=== PATIENT | female | born 1955 | race Caucasian/White ===

== ENCOUNTER 2023-06-22 20:50 | Outpatient (CLI) | payer MEDICARE, SELFPAY | END 2023-06-22 20:51 | disposition home or self-care (01) | LOC: AMB 06-24 15:32 | PROVIDERS: PCP Family Medicine; Visit Provider Internal Medicine | DX: R10.9 Unspecified abdominal pain (principal) | CPT/HCPCS: A0425; A0427 ==

== ENCOUNTER 2023-06-22 21:05 | Inpatient (IN) | payer MEDICARE, SELFPAY ==
--- NOTE | 2023-06-22 21:12 | ED.ABDPAIN ---
HPI - Abdominal Pain General Chief Complaint: Nausea/Vomiting Stated Complaint: Ill Time Seen by Provider: 06/22/23 21:12 History of Present Illness HPI narrative: Patient is a 67-year-old woman who has history of small-bowel obstructions who had her last bowel movement yesterday but now feels like she is having increased abdominal distension throughout her abdomen as well as discomfort which is mild consistent with her bowel obstructions. She is passing gas. She has taken MiraLax. She has had no nausea no vomiting no fevers no chills. Patient became quite concerned this evening and as result came in by ambulance. No other illnesses patient is otherwise been living at the [address] [place] [address]. Related Data Home Medications Medication Instructions Recorded Confirmed acetaminophen 500 mg tablet 1,000 mg PO Q6H PRN 06/22/23 06/22/23 (Acetaminophen Extra Strength) albuterol sulfate 90 mcg/actuation 2 puff inhalation Q4H PRN dyspnea 06/22/23 06/22/23 aerosol inhaler artificial tears opthalmic solution 1 drp 06/22/23 calcium carbonate 600 mg-vitamin 1 tab PO DAILY 06/22/23 06/22/23 D3 10 mcg (400 unit) tablet (Calcium 600 + D(3)) cholecalciferol (vitamin D3) 50 50 mcg PO DAILY 06/22/23 06/22/23 mcg (2,000 unit) capsule fluconazole 150 mg tablet mg PO 06/22/23 fluoxetine 40 mg capsule 40 mg PO DAILY 06/22/23 06/22/23 fluticasone 500 mcg-salmeterol 50 1 ea inhalation BID 06/22/23 06/22/23 mcg/dose blistr powdr for inhalation (Advair Diskus) guaifenesin 400 mg tablet 400 mg PO BID PRN 06/22/23 06/22/23 ipratropium 0.5 mg-albuterol 3 mg 3 ml inhalation Q6H 06/22/23 06/22/23 (2.5 mg base)/3 mL nebulization soln magnesium oxide 400 mg PO DAILY 06/22/23 06/22/23 melatonin 3 mg capsule 3 mg PO HS PRN 06/22/23 06/22/23 montelukast 10 mg tablet 10 mg PO DAILY 06/22/23 06/22/23 omeprazole 20 mg capsule,delayed 20 mg PO DAILY 06/22/23 06/22/23 release ondansetron HCl 4 mg tablet 4 mg PO Q6H 06/22/23 06/22/23 perphenazine 4 mg tablet 4 mg PO QPM 06/22/23 06/22/23 polyethylene glycol 3350 17 17 g PO DAILY 06/22/23 06/22/23 gram/dose oral powder (Miralax) ropinirole 0.5 mg tablet 1 mg PO QHS 06/22/23 06/22/23 warfarin 4 mg tablet 4 mg PO .COMPLEX 06/22/23 06/22/23 Allergies Allergy/AdvReac Type Severity Reaction Status Date / Time celecoxib [From Celebrex] Allergy Unknown Verified 06/22/23 23:16 nickel Allergy Unknown Verified 06/22/23 23:16 Sulfa (Sulfonamide Allergy Unknown Verified 06/22/23 23:16 Antibiotics) Review of Systems Status of ROS Reports: 10 or more systems reviewed and unremarkable except as noted in History and below [facility] Medical History (Updated 06/23/23 @ 00:19 by Fabien Monroy MD) Stable burst fracture of unspecified lumbar vertebra, subsequent encounter for fracture with routine healing ?S32.001D - Stable burst fracture of unspecified lumbar vertebra, subsequent encounter for fracture with routine healing (ICD-10) History of malignant neoplasm of breast ?Z85.3 - Personal history of malignant neoplasm of breast (ICD-10) RLS (restless legs syndrome) ?G25.81 - Restless legs syndrome (ICD-10) Multiple subsegmental pulmonary emboli without acute cor pulmonale ?I26.94 - Multiple subsegmental pulmonary emboli without acute cor pulmonale (ICD-10) Chronic fatigue ?R53.82 - Chronic fatigue, unspecified (ICD-10) COPD (chronic obstructive pulmonary disease) ?J44.9 - Chronic obstructive pulmonary disease, unspecified (ICD-10) Cervical disc disorder ?M50.90 - Cervical disc disorder, unspecified, unspecified cervical region (ICD-10) VIBHA (obstructive sleep apnea) ?G47.33 - Obstructive sleep apnea (adult) (pediatric) (ICD-10) Mild persistent asthma ?J45.30 - Mild persistent asthma, uncomplicated (ICD-10) Schizoaffective disorder ?F25.9 - Schizoaffective disorder, unspecified (ICD-10) Major depressive disorder, single episode ?F32.9 - Major depressive disorder, single episode, unspecified (ICD-10) Small bowel obstruction ?K56.609 - Unspecified intestinal obstruction, unspecified as to partial versus complete obstruction (ICD-10) Exam Narrative: Exam Narrative: EXAM GENERAL: Patient appears comfortable and well. EYES: No scleral icterus. LYMPH: No supraclavicular or cervical lymphadenopathy. SKIN: Visible skin seen during exam normal or with benign process only. EXT: No dependent lower extremity pedal edema. HEART: Regular rate and rhythm with no murmurs, rubs, or gallops. LUNGS: Clear to auscultation bilaterally with no crackles or wheezes. ABD: Soft, non tender, non distended. PSYCH: Good eye contact, speech is not pressured. Const: Vital Signs, click to edit/add: Vital Signs - 24 hr 06/22/23 21:18 Temperature 98.4 F Pulse Rate [Left P ulse Oximeter] 68 Respiratory Rate 20 Blood Pressure [Le ft Upper Arm] 157/90 H Pulse Oximetry 96 Oxygen Delivery Me thod Room Air Course Course ED Course: I am underwhelmed by her exam. I a at this time will begin workup with CBC comprehensive metabolic panel UA amylase and CT abdomen pelvis. Vital Signs Vital signs: Initial Vital Signs Temperature 98.4 F 06/22/23 21:18 Temperature Source Temporal Artery Scan 06/22/23 21:18 Pulse Rate 68 06/22/23 21:18 Respiratory Rate 20 06/22/23 21:18 Blood Pressure 157/90 H 06/22/23 21:18 Blood Pressure Mean 112 H 06/22/23 21:18 Blood Pressure Position Semi-Fowlers 06/22/23 21:18 Pulse Oximetry 96 06/22/23 21:18 Oxygen Delivery Method Room Air 06/22/23 21:18 Vital Signs Temperature 98.4 F 06/22/23 21:18 Pulse Rate 68 06/22/23 21:18 Respiratory Rate 20 06/22/23 21:18 Blood Pressure 157/90 H 06/22/23 21:18 Pulse Oximetry 96 06/22/23 21:18 Oxygen Delivery Method Room Air 06/22/23 21:18 Temperature 98.4 F 06/22/23 21:18 Pulse Rate 68 06/22/23 21:18 Respiratory Rate 20 06/22/23 21:18 Blood Pressure 157/90 H 06/22/23 21:18 Pulse Oximetry 96 06/22/23 21:18 Oxygen Delivery Method Room Air 06/22/23 21:18 Medications Administered Medications: Discontinued Medications Generic Name Dose Route Start Last Admin Trade Name Christal PRN Reason Stop Dose Admin Ondansetron HCl 4 mg 06/22/23 22:21 06/22/23 22:37 Ondansetron 2 Mg/Ml Inj IVP 06/22/23 22:22 4 mg ONCE ONE Administration MDM - Abdominal Pain MDM Narrative Medical decision making narrative: Patient is a 67-year-old woman who presents with the abrupt onset of nausea and vomiting. She states she has had previous bowel obstructions and was concerned that she had another [address] of the abdomen pelvis does not show any acute abnormalities. She has mild anemia on her labs but otherwise her labs are reassuring. Patient received IV Zofran in the ER but her vomiting is refractory. At this time I do not believe she can return to [facility] and will require hospitalization with continued IV fluids and symptom control. Diagnosis likely viral gastroenteritis. Differential Diagnosis Differential diagnosis: Likely abdominal pain, acute appendicitis, calculus of kidney, constipation, diverticulitis, gastroenteritis, pancreatitis and small bowel obstruction Medical Records Attestation: I reviewed the patient's medical records. Lab Data Labs: Lab Results 06/22/23 Range/Units 21:31 WBC 6.25 (4.50-11.00) K/uL RBC 3.65 L (4.00-5.20) m/uL Hgb 11.5 L (12.0-16.0) gm/dL Hct 35.7 (33.0-51.0) % MCV 98 (80-100) fL MCH 32 (26-34) pg MCHC 32 (32-36) gm/dL RDW Coeff of Gunnar 13.9 (11.5-15.5) % Plt Count 327 (140-440) K/uL Neut % (Auto) 74.8 H (42.0-72.0) % Lymph % (Auto) 15.7 L (20-44) % [place] % (Auto) 6.6 (0.0-11.0) % Eos % (Auto) 2.4 (0.0-7.0) % Baso % (Auto) 0.3 (0.0-3.0) % Neut # (Auto) 4.70 (1.7-7.0) K/uL Lymph # (Auto) 1.00 (0.90-2.90) K/uL [place] # (Auto) 0.40 (0.00-0.90) K/UL Eos # (Auto) 0.15 (0.00-0.50) K/uL Baso # (Auto) 0.02 (0.00-0.30) K/uL Abs Immat Gran (auto) 0.01 (0.00-0.30) K/uL Imm/Tot Granulo (auto) 0.2 % Sodium 135 (135-149) mmol/L Potassium 3.5 L (3.6-5.1) mmol/L Chloride 101 (96-114) mmol/L Carbon Dioxide 28 (20-32) mmol/L Anion Gap 6 L (7-15) mEq/L BUN 7 (7-30) mg/dL Creatinine 0.6 (0.5-1.5) mg/dL Estimated GFR 97 ml/min Glucose 118 H (60-115) mg/dL Calcium 8.9 (8.4-10.6) mg/dL Total Bilirubin 0.4 (0.1-1.5) mg/dL AST 25 (12-35) U/L ALT 30 (4-35) U/L Alkaline Phosphatase 98 (40-150) U/L Total Protein 6.1 (6.0-8.3) g/dL Albumin 3.6 (3.3-5.0) g/dL Amylase 70 (18-89) U/L Discharge Plan Discharge Clinical Impression: Vomiting Patient Disposition: Admitted As Inpatient Condition: Stable Activity Level: Other Discharge Diet: Other Prescriptions: No Action fluoxetine 40 mg capsule 40 mg PO DAILY fluconazole 150 mg tablet PO ropinirole 0.5 mg tablet 1 mg PO QHS fluticasone propion-salmeterol [Advair Diskus] 500-50 mcg/dose blister with device 1 ea INHALATION BID perphenazine 4 mg tablet 4 mg PO QPM montelukast 10 mg tablet 10 mg PO DAILY albuterol sulfate 90 mcg/actuation HFA aerosol inhaler 2 puff INHALATION Q4H PRN (Reason: dyspnea) acetaminophen [Acetaminophen Extra Strength] 500 mg tablet 1,000 mg PO Q6H PRN artificial tears opthalmic solution 1 drp Rx Instructions: 1 drop in both eyes every1 hour as needed for dry eyes calcium carbonate-vitamin D3 [Calcium 600 + D(3)] 600 mg-10 mcg (400 unit) tablet 1 tab PO DAILY cholecalciferol (vitamin D3) 50 mcg (2,000 unit) capsule 50 mcg PO DAILY warfarin 4 mg tablet 4 mg PO .COMPLEX Rx Instructions: 4 mg orally QHS every Sat, Sun for hx PE until 06/24/23; guaifenesin 400 mg tablet 400 mg PO BID PRN ipratropium-albuterol 0.5 mg-3 mg(2.5 mg base)/3 mL solution for nebulization 3 ml inhalation Q6H magnesium oxide 400 mg magnesium capsule 400 mg PO DAILY melatonin 3 mg capsule 3 mg PO HS PRN polyethylene glycol 3350 [Miralax] 17 gram/dose powder 17 g PO DAILY omeprazole 20 mg capsule,delayed release(DR/EC) 20 mg PO DAILY ondansetron HCl 4 mg tablet 4 mg PO Q6H Follow Up/Referrals: Reese Heredia MD [Primary Care Provider] -
--- NOTE | 2023-06-22 21:15 | CRLHL7_ITS ---
For Patients: As a result of the Century Cures Act, medical imaging exams and procedure reports are released immediately into your electronic medical record. You may view this report before your referring provider. If you have questions, please contact your health care provider. INDICATION: Abdominal pain, hip pain, back pain, nausea/vomiting. TECHNIQUE: CT abdomen and pelvis acquired with 79 cc Isovue 370 IV contrast. COMPARISON: August 20, 2014 FINDINGS: Lower chest: Scattered atelectasis. Small hiatal hernia. Liver: Stable right hepatic lobe hypodensity. Normal in size and attenuation. No suspicious masses. Gallbladder and bile ducts: Unremarkable. No stones or inflammation. No biliary dilatation. Pancreas: Unremarkable. No mass or inflammation. Spleen: Splenic granulomas. Normal in size. No masses. Adrenal glands: Unremarkable. No nodules. Kidneys: 7 millimeter nonobstructing left renal stone. No suspicious masses, or hydronephrosis. GI tract: Mild colonic stool burden. Normal in caliber. No sign of mass or inflammation. Normal appendix. Vasculature: Mild aorto iliac arterial calcification. Abdominal aorta is normal in caliber. Mesenteric arteries are patent. Lymph nodes: No lymphadenopathy. Peritoneum/Abdominal Wall: Tiny fat containing umbilical hernia. No sign of mass or infiltration. No free air or significant free fluid. Pelvis: Mildly distended bladder circumferential wall thickening. Recommend correlation with urinalysis if UTI suspected.. Bones: Degenerative changes. Moderate anterolisthesis of L4 on L5. Age indeterminate L1 compression fracture. IMPRESSION: Age-indeterminate L1 compression fracture. Recommend correlation with point tenderness. 7 millimeter nonobstructing left renal stone. Moderate colonic stool burden. Small hiatal hernia. Otherwise, no acute intra-abdominal/pelvic abnormality. Please note that all CT scans at this facility use dose modulation, iterative reconstruction, and/or weight-based dosing when appropriate to reduce radiation dose to as low as reasonably achievable. Dictated by Gaudencio Vu MD @ 06/22/2023 11:50:26 PM (Electronically Signed)
[2023-06-22 21:18] VITALS: BP 157/90; PULSE 68; RESP 20; TEMP 36.9; O2SAT 96
[2023-06-22 21:40] LABS: Basophils Absolute Auto 0.02 K/uL (0.00-0.30); Basophils Percent Auto 0.3 % (0.0-3.0); Eosinophils Absolute Auto 0.15 K/uL (0.00-0.50); Eosinophils Percent Auto 2.4 % (0.0-7.0); Hematocrit 35.7 % (33.0-51.0); Hemoglobin* 11.5 gm/dL (12.0-16.0); Immature Granulocytes Abs Auto 0.01 K/uL (0.00-0.30); Immature Granulocytes Pct Auto 0.2 %; Lymphocytes Percent Auto 15.7 % (20-44); Mean Corpuscular HGB Conc 32 gm/dL (32-36); Mean Corpuscular Hemoglobin 32 pg (26-34); Mean Corpuscular Volume 98 fL (80-100); Monocytes Percent Auto 6.6 % (0.0-11.0); Neutrophils Percent Auto 74.8 % (42.0-72.0); Platelet Count* 327 K/uL (140-440); RDW Coefficient of Variation % 13.9 % (11.5-15.5); Red Blood Count 3.65 m/uL (4.00-5.20); White Blood Count* 6.25 K/uL (4.50-11.00)
[2023-06-22 21:54] LABS: Slide Review Reflex No
[2023-06-22 22:08] LABS: Albumin* 3.6 g/dL (3.3-5.0); Chloride* 101 mmol/L (96-114); Potassium* 3.5 mmol/L (3.6-5.1); Sodium* 135 mmol/L (135-149)
[2023-06-22 22:10] LABS: Amylase* 70 U/L (18-89)
[2023-06-22 22:11] LABS: Alanine Aminotransferase* 30 U/L (4-35); Alkaline Phosphatase* 98 U/L (40-150); Anion Gap 6 mEq/L (7-15); Aspartate Amino Transferase* 25 U/L (12-35); Bilirubin Total* 0.4 mg/dL (0.1-1.5); Blood Urea Nitrogen* 7 mg/dL (7-30); Calcium* 8.9 mg/dL (8.4-10.6); Carbon Dioxide* 28 mmol/L (20-32); Creatinine* 0.6 mg/dL (0.5-1.5); Estimated Glomerular Filt Rate 97 ml/min; Glucose* 118 mg/dL (60-115); Total Protein* 6.1 g/dL (6.0-8.3)
[2023-06-22] MEDS: ONDANSETRON 2 MG/ML inj 4 MG IVP (22:37)
[2023-06-23] VITALS (8 sets, daily range): BP systolic 100–164; BP diastolic 55–90; PULSE 64–79; RESP 15–18; TEMP 36.3–37.2; O2SAT 89–99; BMI 29.6
--- NOTE | 2023-06-23 00:33 | W.PC.EDHO ---
Primary Language: Preferred Language: Orientation Status: [x] Alert & Oriented [] Slight Confusion [] Known Dx Dementia Transfers By: [x] Assist of 1 [] Assist of 2 [] Lift Active Medications Discontinued Medications Generic Name Dose Route Start Last Admin Trade Name Christal PRN Reason Stop Dose Admin Ondansetron HCl 4 mg 06/22/23 22:21 06/22/23 22:37 Ondansetron 2 Mg/Ml Inj IVP 06/22/23 22:22 4 mg ONCE ONE Administration Description of Symptoms ED Triage Present Problem Patient arrives by [facility] with c/o vomiting Description beginning at 1300 today. Patient is worried she has a bowel obstruction. Patient states her last BM was yesterday. Patient was given maalox by the nurse at [facility] today. Patient c/o chronic left back pain r/t spinal compression fx. ED Triage Date of Onset of 06/22/23 Symptoms Pain Pain Description [Left Back] Dull, Achy Pain Intensity [Left Back] 6 Pain Scale Used [Left Back] Numeric (1 - 10) Oxygen Administration Pulse Oximetry 99 Pulse Oximetry 96 Oxygen Delivery Method Room Air Oxygen Delivery Method Room Air
--- NOTE | 2023-06-23 00:34 | ED.NURSE ---
Report to accepting MS RN. Patient transported via cart to 60 with all belongings.
[2023-06-23] MEDS: 0.9 % SODIUM CHLORIDE 1000 ml 1,000 ML 150 ML IV (00:42)
[2023-06-23] MEDS: LORazepam 2 MG/ML inj 1 MG IVP (00:42)
--- NOTE | 2023-06-23 00:42 | PC.NURSE ---
report given to M/S RN, patient brought to room 260 with all belongings by business office technology instructor
[2023-06-23 00:45] LABS: Appearance Urine Clear (Clear); Bilirubin Urine Negative (Negative); Blood Urine Negative (Negative); Color Urine Yellow (Yellow); Glucose Urine Negative (Negative); Ketones Urine Trace (Negative); Leukocyte Esterase Urine Negative (Negative); Nitrite Urine Negative (Negative); Protein Urine Negative (Negative); Specific Gravity Urine 1.015 (1.000-1.030); Urobilinogen Urine 0.2 (0.2-1.0); pH Urine 8.5 (5.0-8.5)
--- NOTE | 2023-06-23 01:33 | W.PM.THH&P_ITS ---
Telehealth- H&P: HPI History of Present Illness Date Seen: 06/23/23 Chief complaint: Ill Narrative: Shira Eid is seen as an Interactive Telehealth visit. Shira Eid is a 67 year old male who is Seen in the hospital at [facility] with the assistance of nursing staff. She has been admitted through the emergency room. She recently suffered a back fracture currently in a rehab type facility. Patient states she was in her usual state of health until this afternoon she started becoming very nauseated. She has had a history of small bowel obstruction in the past and was concerned of this. Patient has been having ongoing vomiting but no diarrhea. She denies any blood in the vomit. She came into the emergency room and was evaluated. CT scan of the abdomen pelvis was performed did not show any acute findings. Patient was treated with Zofran and IV fluids but really is still remaining nauseated. It is felt that she would benefit from ongoing hospitalization for continued antiemetics as well as IV fluids. She denies fevers chills blood in the vomitus or other symptoms. Review of Systems Narrative: Complete review of systems was performed, positive pertinence negatives in the HPI [facility] Medical History (Updated 06/23/23 @ 01:42 by Prasanna Robbins, ) Stable burst fracture of unspecified lumbar vertebra, subsequent encounter for fracture with routine healing ?S32.001D - Stable burst fracture of unspecified lumbar vertebra, subsequent encounter for fracture with routine healing (ICD-10) History of malignant neoplasm of breast ?Z85.3 - Personal history of malignant neoplasm of breast (ICD-10) RLS (restless legs syndrome) ?G25.81 - Restless legs syndrome (ICD-10) Multiple subsegmental pulmonary emboli without acute cor pulmonale ?I26.94 - Multiple subsegmental pulmonary emboli without acute cor pulmonale (ICD-10) Chronic fatigue ?R53.82 - Chronic fatigue, unspecified (ICD-10) COPD (chronic obstructive pulmonary disease) ?J44.9 - Chronic obstructive pulmonary disease, unspecified (ICD-10) Cervical disc disorder ?M50.90 - Cervical disc disorder, unspecified, unspecified cervical region (ICD-10) VIBHA (obstructive sleep apnea) ?G47.33 - Obstructive sleep apnea (adult) (pediatric) (ICD-10) Mild persistent asthma ?J45.30 - Mild persistent asthma, uncomplicated (ICD-10) Schizoaffective disorder ?F25.9 - Schizoaffective disorder, unspecified (ICD-10) Major depressive disorder, single episode ?F32.9 - Major depressive disorder, single episode, unspecified (ICD-10) Small bowel obstruction ?K56.609 - Unspecified intestinal obstruction, unspecified as to partial versus complete obstruction (ICD-10) Family History (Updated 06/23/23 @ 01:07 by Prasanna Robbins DO) Father Lung cancer Mother Stroke Social History Non-prescribed substance use: denies use Meds Home Medications and Allergies Home Medications Medication Instructions Recorded Confirmed Type acetaminophen 500 mg tablet 1,000 mg PO Q6H PRN 06/22/23 06/22/23 History (Acetaminophen Extra Strength) albuterol sulfate 90 mcg/actuation 2 puff inhalation Q4H PRN dyspnea 06/22/23 06/22/23 History aerosol inhaler artificial tears opthalmic solution 1 drp 06/22/23 History calcium carbonate 600 mg-vitamin 1 tab PO DAILY 06/22/23 06/22/23 History D3 10 mcg (400 unit) tablet (Calcium 600 + D(3)) cholecalciferol (vitamin D3) 50 50 mcg PO DAILY 06/22/23 06/22/23 History mcg (2,000 unit) capsule fluconazole 150 mg tablet mg PO 06/22/23 History fluoxetine 40 mg capsule 40 mg PO DAILY 06/22/23 06/22/23 History fluticasone 500 mcg-salmeterol 50 1 ea inhalation BID 06/22/23 06/22/23 History mcg/dose blistr powdr for inhalation (Advair Diskus) guaifenesin 400 mg tablet 400 mg PO BID PRN 06/22/23 06/22/23 History ipratropium 0.5 mg-albuterol 3 mg 3 ml inhalation Q6H 06/22/23 06/22/23 History (2.5 mg base)/3 mL nebulization soln magnesium oxide 400 mg PO DAILY 06/22/23 06/22/23 History melatonin 3 mg capsule 3 mg PO HS PRN 06/22/23 06/22/23 History montelukast 10 mg tablet 10 mg PO DAILY 06/22/23 06/22/23 History omeprazole 20 mg capsule,delayed 20 mg PO DAILY 06/22/23 06/22/23 History release ondansetron HCl 4 mg tablet 4 mg PO Q6H 06/22/23 06/22/23 History perphenazine 4 mg tablet 4 mg PO QPM 06/22/23 06/22/23 History polyethylene glycol 3350 17 17 g PO DAILY 06/22/23 06/22/23 History gram/dose oral powder (Miralax) ropinirole 0.5 mg tablet 1 mg PO QHS 06/22/23 06/22/23 History warfarin 4 mg tablet 4 mg PO .COMPLEX 06/22/23 06/22/23 History Allergies Allergy/AdvReac Type Severity Reaction Status Date / Time celecoxib [From Celebrex] Allergy Unknown Verified 06/22/23 23:16 nickel Allergy Unknown Verified 06/22/23 23:16 Sulfa (Sulfonamide Allergy Unknown Verified 06/22/23 23:16 Antibiotics) Exam Narrative Exam Narrative: Physical Exam GENERAL: ?vital signs reviewed, well developed and nourished, in no distress HEENT: pupils are equal round and reactive to light, extraocular movements are grossly within normal limits and oral mucosa is moist. NECK: Supple without lymphadenopathy or thyromegaly according to nursing staff examination observation HEART: Regular rate and rhythm without any rubs, murmurs, or gallops. LUNGS: Clear to auscultation bilaterally with good air movement throughout ABDOMEN: Observation from nurse assisted exam, abdomen appears soft, nontender, and nondistended with Positive bowel sounds noted. EXTREMITIES: Strength and sensation is observed to be grossly within normal limits in the upper and lower extremities.? No focal strength deficit is observed. SKIN:? Observed warm and dry with color normal Const Vital Signs, click to edit/add: Vital Signs - 24 hr 06/22/23 21:18 06/23/23 00:14 Temperature 98.4 F Pulse Rate [Left Pulse Oximeter] 68 75 Respiratory Rate 20 16 Blood Pressure [Left Upper Arm] 157/90 H 128/88 Pulse Oximetry 96 99 Oxygen Delivery Method Room Air Room Air Hospitalist - H&P: Result Labs Labs: Short CBC 06/22/23 Range/Units 21:31 WBC 6.25 (4.50-11.00) K/uL Hgb 11.5 L (12.0-16.0) gm/dL Hct 35.7 (33.0-51.0) % Plt Count 327 (140-440) K/uL BMP 06/22/23 21:31 Sodium 135 Potassium 3.5 L Chloride 101 Carbon Dioxide 28 BUN 7 Creatinine 0.6 Glucose 118 H Calcium 8.9 Liver Function 06/22/23 Range/Units 21:31 Total Bilirubin 0.4 (0.1-1.5) mg/dL AST 25 (12-35) U/L ALT 30 (4-35) U/L Alkaline Phosphatase 98 (40-150) U/L Albumin 3.6 (3.3-5.0) g/dL Urine 06/23/23 Range/Units 00:49 Urine Color Yellow (Yellow) Urine Appearance Clear (Clear) Urine pH 8.5 (5.0-8.5) Ur Specific [place] 1.015 (1.000-1.030) Urine Protein Negative (Negative) Urine Glucose (UA) Negative (Negative) CT abdomen pelvis shows no acute findings no signs of a bowel obstruction. Assessment and Plan Assessment and plan (1) Gastroenteritis: Status: Acute (2) Hypokalemia: Status: Acute (3) Vomiting: Status: Acute (4) Schizoaffective disorder: Status: Acute (5) COPD (chronic obstructive pulmonary disease): Status: Acute (6) Multiple subsegmental pulmonary emboli without acute cor pulmonale: Status: Acute Plan Gastroenteritis?etiology is not totally clear but most likely viral, food poisoning or bacterial less likely. No diarrhea at the moment for now we will plan to treat conservatively. IV fluids. Antiemetics. If patient develops diarrhea further workup C. difficile etc. could be appropriate. Hypokalemia?replace per protocol. Will check a magnesium level as this is often low with low potassium. Vomiting thought to be secondary to gastroenteritis. Antiemetics in the form of Zofran, Compazine, Ativan. Schizoaffective disorder?appears to be stable we will continue to follow closely COPD continue home inhalers and home medications. Multiple subsegmental pulmonary emboli on chronic anticoagulation. Continue Coumadin goal INR 2-3. DVT prophylaxis will not be needed as she is fully anticoagulated CODE STATUS was addressed on admission patient wishes to be a full code. She however would not want a feeding tube. Telehealth: Statement Statement Telehealth Visit: Today's History and Physical is provided via interactive telehealth by Prasanna Robbins DO.? Patient is located at [facility].? Provider is located at [facility]? Nursing staff assisted with the patient's exam. The visit being done today meets criteria for a telehealth visit and the patient or patient?s parent/guardian is aware the visit is a telehealth visit. Camera Start Time: 01:02 Camera End Time: 01:15
[2023-06-23] MEDS: 0.9 % SODIUM CHLORIDE 1000 ml 1,000 ML 100 ML IV ×2 (01:36→09:56)
[2023-06-23] MEDS: POTASSIUM CHLORIDE 10 MEQ/100 ML PIGGYBACK 100 MEQ IVPB ×2 (03:28→04:40)
[2023-06-23 03:55] LABS: PCR FLU A Negative PCR FLU A (Negative); PCR FLU B Negative PCR FLU B (Negative); PCR RSV Negative PCR RSV (Negative)
[2023-06-23 03:57] LABS: SARS PCR* Negative SARS-CoV-2 (Negative)
--- NOTE | 2023-06-23 07:00 | PM.IMPN1 ---
Progress Note: A&P Assessment and plan (1) Nausea and vomiting: Problem details: Currently intractable nausea and vomiting. Cause for this is uncertain. Three weeks ago she had a bowel obstruction causing vomiting. But no evidence of that now. Prior to that she has had a history of vomiting in the past. The cause for that was unclear as well. Current medications are not obvious culprits for this. No obvious structural abnormality seen on CT scan of her abdomen and pelvis. She does still have a gallbladder. LFTs are normal. She has got no tenderness in her right upper quadrant. No history of gastroparesis. Gastroenteritis is a possibility though the absence of diarrhea makes this less likely Status: Acute (2) Hypokalemia: Problem details: Replace and follow Status: Acute (3) Schizoaffective disorder: Problem details: Will try Zyprexa for her schizoaffective disorder as well as for her nausea and vomiting Status: Acute (4) COPD (chronic obstructive pulmonary disease): Problem details: Quiescent. Status: Acute (5) Multiple subsegmental pulmonary emboli without acute cor pulmonale: Problem details: Continue warfarin to a therapeutic INR for ongoing treatment Status: Acute Plan Patient is admitted to the hospital for IV fluids and antiemetics and ongoing evaluation of her intractable vomiting. Total time spent today is 55 minutes, 40 minutes in coordination of care and discussing with patient and other providers ongoing evaluation and management of vomiting Subjective Date Seen: 06/23/23 Interval history: 67-year-old female admitted to the hospital with intractable nausea and vomiting starting yesterday. Patient had recent hospitalization at [facility] for vomiting. At that time she was diagnosed with a small-bowel obstruction. She was hospitalized from June 01 and June 13 for that. She was evaluated in our emergency room and found to have a normal CT of her abdomen without evidence of bowel obstruction. She was seen to have moderate amount of stool in her colon. She reports he has not had a bowel movement for a couple days but is not feeling particularly constipated. She has also had a history of nausea and vomiting in the past. The cause of this is not been clear but she has been on p.r.n. Zofran for some time. She is not aware of any fever. She is not having significant abdominal pain. She continues to have intractable nausea and vomiting today however. She has been treated with ondansetron and Compazine and lorazepam. These have given her some sedation but without relief of her vomiting. She normally takes perphenazine for her schizoaffective disorder. She is not sure if she had it last night. She had a L1 compression fracture in March and has been in a half-way since that time except for the 2 weeks that she was at [place] for her bowel obstruction. Initially she was at [facility] in [place] and then when she went to [place] she was discharged to [address] [place] [address]. She is therefore rehab for her back pain and overall disability. While she was [place] she was also found to have pulmonary emboli. She has underlying COPD and asthma in her history as well. She reports no current chest pain or shortness of breath Exam Narrative: Exam Narrative: She is alert and appears in no distress. She is holding an emesis bag. Eyes normal. Oropharynx normal. Neck is supple without mass or adenopathy. Respirations are clear to auscultation. Cardiovascular: S1, S2, regular rate and rhythm. Abdomen: Bowel sounds active. Abdomen is soft she has no tenderness and no mass. Extremities without edema. She moves all 4 extremities well. Skin is well perfused. Const: Vital Signs, click to edit/add: Vital Signs - 24 hr 06/22/23 21:18 06/23/23 00:14 06/23/23 01:16 Temperature 98.4 F 98.1 F Pulse Rate [Left P ulse Oximeter] 68 75 Pulse Rate [Right Pulse Oximeter] 64 Respiratory Rate 20 16 18 Blood Pressure [Le ft Upper Arm] 157/90 H 128/88 Blood Pressure [Ri ght Arm] 144/84 H Pulse Oximetry 96 99 92 Oxygen Delivery Me thod Room Air Room Air Room Air 06/23/23 01:16 06/23/23 03:00 Temperature 97.4 F L Pulse Rate [Left P ulse Oximeter] Pulse Rate [Right Pulse Oximeter] 79 Respiratory Rate 18 15 Blood Pressure [Le ft Upper Arm] Blood Pressure [Ri ght Arm] 124/90 H Pulse Oximetry 92 93 Oxygen Delivery Me thod Room Air Room Air Documenting provider has reviewed patient's vital signs: yes Labs Labs: Laboratory Results - last 24 hr 06/22/23 06/23/23 06/23/23 21:31 00:49 03:13 WBC 6.25 RBC 3.65 L Hgb 11.5 L Hct 35.7 MCV 98 MCH 32 MCHC 32 RDW Coeff of Gunnar 13.9 Plt Count 327 Neut % (Auto) 74.8 H Lymph % (Auto) 15.7 L [place] % (Auto) 6.6 Eos % (Auto) 2.4 Baso % (Auto) 0.3 Neut # (Auto) 4.70 Lymph # (Auto) 1.00 [place] # (Auto) 0.40 Eos # (Auto) 0.15 Baso # (Auto) 0.02 Abs Immat Gran (auto) 0.01 Imm/Tot Granulo (auto) 0.2 Sodium 135 Potassium 3.5 L Chloride 101 Carbon Dioxide 28 Anion Gap 6 L BUN 7 Creatinine 0.6 Estimated GFR 97 Glucose 118 H Calcium 8.9 Total Bilirubin 0.4 AST 25 ALT 30 Alkaline Phosphatase 98 Total Protein 6.1 Albumin 3.6 Amylase 70 Urine Color Yellow Urine Appearance Clear Urine pH 8.5 Ur Specific [place] 1.015 Urine Protein Negative Urine Glucose (UA) Negative Urine Ketones Trace A Urine Blood Negative Urine Nitrite Negative Urine Bilirubin Negative Urine Urobilinogen 0.2 Ur Leukocyte Esterase Negative SARS-CoV-2 (PCR) Negative SARS-CoV-2 Influenza Type A (PCR) Negative PCR FLU A Influenza Type B (PCR) Negative PCR FLU B RSV (PCR) Negative PCR RSV Imaging CT scan - abdomen: Radiologist's impression: INDICATION: Abdominal pain, hip pain, back pain, nausea/vomiting. TECHNIQUE: CT abdomen and pelvis acquired with 79 cc Isovue 370 IV contrast. COMPARISON: August 20, 2014 FINDINGS: Lower chest: Scattered atelectasis. Small hiatal hernia. Liver: Stable right hepatic lobe hypodensity. Normal in size and attenuation. No suspicious masses. Gallbladder and bile ducts: Unremarkable. No stones or inflammation. No biliary dilatation. Pancreas: Unremarkable. No mass or inflammation. Spleen: Splenic granulomas. Normal in size. No masses. Adrenal glands: Unremarkable. No nodules. Kidneys: 7 millimeter nonobstructing left renal stone. No suspicious masses, or hydronephrosis. GI tract: Mild colonic stool burden. Normal in caliber. No sign of mass or inflammation. Normal appendix. Vasculature: Mild aorto iliac arterial calcification. Abdominal aorta is normal in caliber. Mesenteric arteries are patent. Lymph nodes: No lymphadenopathy. Peritoneum/Abdominal Wall: Tiny fat containing umbilical hernia. No sign of mass or infiltration. No free air or significant free fluid. Pelvis: Mildly distended bladder circumferential wall thickening. Recommend correlation with urinalysis if UTI suspected.. Bones: Degenerative changes. Moderate anterolisthesis of L4 on L5. Age indeterminate L1 compression fracture. IMPRESSION: Age-indeterminate L1 compression fracture. Recommend correlation with point tenderness. 7 millimeter nonobstructing left renal stone. Moderate colonic stool burden. Small hiatal hernia. Otherwise, no acute intra-abdominal/pelvic abnormality.
--- NOTE | 2023-06-23 07:28 | PC.NURSE ---
End of shift report : Patient alert and oriented x 4. Pain reported to low back and left hip from prior fall. Patient currently resides at [facility] for rehab for previous lumbar fracture. Reporting nausea but no vomiting during the shift. Slept well. Abdomen is soft and non tender, bowel sounds active x 4 quadrants. Patient request staff call and update her significant other Bill with current diagnosis, press writer placed call and updated per patient request. Incontinent of bladder. Patient currently staying in bed, refuses to get up at this time.
[2023-06-23 08:22] LABS: Chloride* 106 mmol/L (96-114); INR 1.75 (0.91-1.10); Prothrombin Time 21.7 Seconds; Sodium* 135 mmol/L (135-149)
[2023-06-23 08:23] LABS: Potassium* 4.1 mmol/L (3.6-5.1)
[2023-06-23 08:25] LABS: Creatinine* 0.5 mg/dL (0.5-1.5); Est. Creatinine Clearance* 43.92; Estimated Glomerular Filt Rate 101 ml/min
[2023-06-23 08:26] LABS: Anion Gap 5 mEq/L (7-15); Blood Urea Nitrogen* 6 mg/dL (7-30); Calcium* 8.7 mg/dL (8.4-10.6); Carbon Dioxide* 24 mmol/L (20-32); Glucose* 107 mg/dL (60-115); Magnesium* 2.1 mg/dL (1.5-2.6)
[2023-06-23] MEDS: OMEPRAZOLE 20 MG CAPSULE DR PO (08:49)
[2023-06-23] MEDS: FLUOXETINE HCL 20 MG CAPSULE 40 MG PO (08:49)
[2023-06-23] MEDS: MONTELUKAST 10 MG TABLET PO (08:51)
[2023-06-23] MEDS: MAGNESIUM OXIDE 400 MG TABLET PO (08:52)
[2023-06-23] MEDS: polyethylene glycoL 3350 17 GM PACK PO (08:52)
[2023-06-23] MEDS: IPRAT-ALBUT 0.5-2.5 MG/3 ML NEB 1 NEB IH ×3 (08:59→19:31)
[2023-06-23] MEDS: ACETAMINOPHEN 500 MG TABLET 1000 MG PO (09:35)
[2023-06-23] MEDS: WARFARIN 5 MG TABLET PO (09:53)
[2023-06-23] MEDS: PROCHLORPERAZINE 5 MG/ML VIAL IV ×2 (09:59→16:43)
--- NOTE | 2023-06-23 12:07 | CRLHL7_ITS ---
For Patients: As a result of the Century Cures Act, medical imaging exams and procedure reports are released immediately into your electronic medical record. You may view this report before your referring provider. If you have questions, please contact your health care provider. INDICATION: Intractable vomiting. TECHNIQUE: CT of the head without contrast. Coronal and sagittal reformats are included. COMPARISON: Head CT from 09/02/2012. FINDINGS: No CT evidence of acute cortical infarct. No loss of quijano white matter differentiation. No hyperdense vessels to suggest intracranial thrombus. No acute intracranial hemorrhage. No mass effect or midline shift. No hydrocephalus or extra-axial collections. Patchy white matter hypoattenuation, typical for chronic microvascular ischemic change. No acute osseous abnormalities. Complete opacification of the left sphenoid sinus with osteitis of the sinus wall. A central tiny focus of calcification. Paranasal sinuses and mastoid air cells are otherwise clear. Normal soft tissues. IMPRESSION: IMPRESSION:1. No CT evidence of acute cortical infarct. No acute intracranial hemorrhage. No other acute intracranial findings. Please note that all CT scans at this facility use dose modulation, iterative reconstruction, and/or weight-based dosing when appropriate to reduce radiation dose to as low as reasonably achievable. Dictated by Den Fagan MD @ 06/23/2023 1:10:38 PM (Electronically Signed)
[2023-06-23] MEDS: METOCLOPRAMIDE HCL 5 MG/ML INJ 10 MG IVP (12:30)
[2023-06-23] MEDS: bisacodyL 10 MG SUPP.RECT PR (12:46)
--- NOTE | 2023-06-23 18:51 | PC.NURSE ---
Patient alert but drowsy today. VSS and afebrile. SBA with gait belt and walker to bathroom. Multiple urine incontinence today resulting in full linen changes. Patient had x2 emesis of epperson bile & undigested food. Seems to have N/V shortly after having PO intake- only attempted small amounts of toast and chicken noodle soup or broth. Received PRN compazine x2 doses and one time dose of IV Reglan. Received PRN Tylenol this AM for c/o headache. Call light appropriate but withdrawn from cares & soft spoken. Patient had Head CT today which came back negative. NS infusing at 100 mL/hr with MD order to change to LR at 75 mL/hr once NS is finished. Left arm restriction in place d/t history of breast CA.
[2023-06-23] MEDS: LACTATED RINGERS 1000 ML 1,000 ML 75 ML IV (19:31)
[2023-06-23] MEDS: OLANZapine 5 MG TAB.RAPDIS PO (21:00)
[2023-06-23] MEDS: ROPINIROLE HCL 1 MG TABLET PO (21:00)
[2023-06-23] MEDS: SODIUM CHLORIDE 0.9 % (FLUSH) 10 ML SYRINGE 5 ML IVF (21:01)
--- NOTE | 2023-06-23 22:49 | PC.NURSE ---
Shift [id number]- Patient is wakeful this evening. She expresses some stomach upset tonight, seems satisfied with amadeo marco, asks for toast shortly after (no outright nausea/vomiting). She is up with walker, gait belt, and assist of 1 and tolerates well. She brings up low fiber diet many times throughout evening.
[2023-06-24] MEDS: IPRAT-ALBUT 0.5-2.5 MG/3 ML NEB 1 NEB IH ×3 (02:10→19:37)
[2023-06-24 03:00] VITALS: BP 123/67; PULSE 82; RESP 18; TEMP 36.6; O2SAT 97
[2023-06-24] MEDS: ACETAMINOPHEN 500 MG TABLET 1000 MG PO ×3 (03:28→20:24)
[2023-06-24] MEDS: ONDANSETRON 2 MG/ML inj 4 MG IVP (05:19)
[2023-06-24] MEDS: SODIUM CHLORIDE 0.9 % (FLUSH) 10 ML SYRINGE 5 ML IVF (05:19)
--- NOTE | 2023-06-24 05:32 | PC.NURSE ---
Shift note: Pt was doing well, asked for toast at 2100 and she reported of feeling hungry. Ambulated with A1, walker and GB. Pt complained feeling nauseated at 0520. Zofran was given intravenously which was effective. Tylenol was give for headache. pt appeared weak. Vitally stable.
[2023-06-24] MEDS: bisacodyL 10 MG SUPP.RECT PR (06:03)
[2023-06-24 07:00] VITALS: BP 169/95; PULSE 74; RESP 18; TEMP 37.2; O2SAT 94
[2023-06-24] MEDS: MAGNESIUM OXIDE 400 MG TABLET PO (08:33)
[2023-06-24] MEDS: FLUOXETINE HCL 20 MG CAPSULE 40 MG PO (08:33)
[2023-06-24] MEDS: OMEPRAZOLE 20 MG CAPSULE DR PO (08:33)
[2023-06-24] MEDS: polyethylene glycoL 3350 17 GM PACK PO (08:33)
[2023-06-24] MEDS: OLANZapine 5 MG TAB.RAPDIS PO (08:34)
[2023-06-24] MEDS: MONTELUKAST 10 MG TABLET PO (08:34)
[2023-06-24] MEDS: LACTATED RINGERS 1000 ML 1,000 ML 75 ML IV ×2 (08:44→20:07)
[2023-06-24 08:46] LABS: Basophils Absolute Auto 0.04 K/uL (0.00-0.30); Basophils Percent Auto 0.4 % (0.0-3.0); Eosinophils Absolute Auto 0.07 K/uL (0.00-0.50); Eosinophils Percent Auto 0.8 % (0.0-7.0); Hematocrit 42.3 % (33.0-51.0); Hemoglobin* 13.6 gm/dL (12.0-16.0); Immature Granulocytes Pct Auto 1.1 %; Lymphocytes Percent Auto 9.1 % (20-44); Mean Corpuscular HGB Conc 32 gm/dL (32-36); Mean Corpuscular Hemoglobin 31 pg (26-34); Mean Corpuscular Volume 97 fL (80-100); Monocytes Percent Auto 5.3 % (0.0-11.0); Neutrophils Percent Auto 83.3 % (42.0-72.0); Platelet Count* 376 K/uL (140-440); Red Blood Count 4.37 m/uL (4.00-5.20); White Blood Count* 9.32 K/uL (4.50-11.00)
[2023-06-24 08:47] LABS: Albumin* 4.2 g/dL (3.3-5.0); Chloride* 101 mmol/L (96-114); Slide Review Reflex No
[2023-06-24 08:48] LABS: Potassium* 3.6 mmol/L (3.6-5.1); Sodium* 137 mmol/L (135-149)
[2023-06-24 08:50] LABS: Anion Gap 12 mEq/L (7-15); Carbon Dioxide* 24 mmol/L (20-32); Creatinine* 0.5 mg/dL (0.5-1.5); Est. Creatinine Clearance* 43.92; Estimated Glomerular Filt Rate 101 ml/min
[2023-06-24 08:51] LABS: Alanine Aminotransferase* 29 U/L (4-35); Alkaline Phosphatase* 110 U/L (40-150); Aspartate Amino Transferase* 37 U/L (12-35); Bilirubin Direct* 0.1 mg/dL (0.0-0.5); Bilirubin Total* 0.7 mg/dL (0.1-1.5); Blood Urea Nitrogen* 7 mg/dL (7-30); Calcium* 9.2 mg/dL (8.4-10.6); Glucose* 117 mg/dL (60-115); Lipase* 39 U/L (23-300); Total Protein* 7.2 g/dL (6.0-8.3)
[2023-06-24 08:53] LABS: INR 2.12 (0.91-1.10); Prothrombin Time 25.3 Seconds
[2023-06-24 09:03] LABS: Troponin I* 0.03 ng/mL (0.01-0.04)
--- NOTE | 2023-06-24 10:29 | CRLHL7_ITS ---
For Patients: As a result of the Cures Act, medical imaging exams and procedure reports are released immediately into your electronic medical record. You may view this report before your referring provider. If you have questions, please contact your health care provider. INDICATION: Nausea and vomiting. COMPARISON: CT dated 06/22/2023. TECHNIQUE: Ultrasound abdomen right upper quadrant. FINDINGS: A shadowing gallstone is seen within the gallbladder measuring 1.3 cm. The mobility of the stone is unclear based on the worksheet and images. Mild gallbladder distention measuring 4.2 cm, new from previous CT when it measured 3.7 cm. No pericholecystic fluid. No gallbladder wall thickening with the gallbladder measuring approximately 1.7 mm. No right-sided hydronephrosis. Hyperechoic liver lesion in the posterior right hepatic lobe measuring 2.2 cm most likely represents a small hemangioma, and roughly corresponds to a hypoenhancing lesion in the posterior right hepatic lobe as seen on the previous CT. IMPRESSION: Gallstone with new mild gallbladder distention. No gallbladder wall thickening or pericholecystic fluid however. Consider HIDA scan to further evaluate as clinically warranted. Dictated by Huang Roy MD @ 06/24/2023 1:12:49 PM (Electronically Signed)
[2023-06-24 11:00] VITALS: BP 164/95; PULSE 72; RESP 18; TEMP 37.1; O2SAT 95
[2023-06-24] MEDS: SENNOSIDES 1 TAB TABLET 2 TAB PO ×2 (11:20→20:06)
[2023-06-24 14:37] VITALS: BP 156/93; PULSE 75; RESP 20; TEMP 37; O2SAT 93
--- NOTE | 2023-06-24 16:50 | P.IMPN_ITS ---
Progress Note: A&P Assessment and plan (1) Nausea and vomiting: Problem details: Currently intractable nausea and vomiting. Cause for this is uncertain. Three weeks ago she had a bowel obstruction causing vomiting. But no evidence of that now. Prior to that she has had a history of vomiting in the past. The cause for that was unclear as well. Current medications are not obvious culprits for this. No obvious structural abnormality seen on CT scan of her abdomen and pelvis. She does still have a gallbladder. Ultrasound shows a gallstone. LFTs are normal. She has got no tenderness in her right upper quadrant. No history of gastroparesis. Gastroenteritis is a possibility though the absence of diarrhea makes this less likely. Antiemetics have not provided any consistent benefit. Obtain upper GI x-ray, HIDA scan. Consider EGD. May need to stop anticoagulation for her PE temporarily for EGD Status: Acute (2) Hypokalemia: Problem details: Replace and follow Status: Acute (3) Schizoaffective disorder: Problem details: Hold perphenazine well treating with other antipsychotics for nausea and vomiting Status: Acute (4) COPD (chronic obstructive pulmonary disease): Problem details: Quiescent. Status: Acute (5) Multiple subsegmental pulmonary emboli without acute cor pulmonale: Problem details: Continue warfarin to a therapeutic INR for ongoing treatment. May need to stop if evidence of bleeding or if needing invasive procedure Status: Acute Plan Continue in hospital for IV fluids, antiemetics and further evaluation and management of intractable nausea and vomiting Time Spent With Patient Total time spent: Total time spent today is 50 minutes, 30 minutes in coordination of care discussing with patient, her boyfriend other providers management of intractable nausea and vomiting Subjective Date Seen: 06/24/23 Interval history: 67-year-old female admitted to the hospital with intractable nausea and vomiting starting yesterday. Patient had recent hospitalization at [facility] for vomiting. At that time she was diagnosed with a small-bowel obstruction. She was hospitalized from June 01 and June 13 for that. She was evaluated in our emergency room and found to have a normal CT of her abdomen without evidence of bowel obstruction. She was seen to have moderate amount of stool in her colon. She reports he has not had a bowel movement for a couple days but is not feeling particularly constipated. She has also had a history of nausea and vomiting in the past. The cause of this is not been clear but she has been on p.r.n. Zofran for some time. She is not aware of any fever. She is not having significant abdominal pain. She continues to have intractable nausea and vomiting today however. She has been treated with ondansetron and Compazine and lorazepam. These have given her some sedation but without relief of her vomiting. She normally takes perphenazine for her schizoaffective disorder. She is not sure if she had it last night. She had a L1 compression fracture in March and has been in a [facility] since that time except for the 2 weeks that she was at [place] for her bowel obstruction. Initially she was at [facility] in [place] and then when she went to [place] she was discharged to [address] [place] [address]. She is therefore rehab for her back pain and overall disability. While she was [place] she was also found to have pulmonary emboli. She has underlying COPD and asthma in her history as well. She reports no current chest pain or shortness of breath Over the past day she has continued to have intractable nausea and occasional small emesis. She has attempted to eat a small amount of food but gets more nauseated afterwards. She has not had any except abdominal pain she is not having a fever. Yesterday she had a suppository without having a stool. An other bisacodyl suppository today without results as well. A variety of antiemetics have been used without reliable success. We have tried Zofran with intermittent success and Reglan without obvious benefit. Patient would like to try Compazine today. Zyprexa was not of obvious benefit. Exam Narrative: Exam Narrative: She is alert and appears in no obvious distress. Respirations are clear to auscultation. Cardiovascular: S1, S2, regular rate and rhythm. Abdomen: Bowel sounds active. Abdomen is soft without significant tenderness or palpable mass. Extremities without edema. Const: Vital Signs, click to edit/add: Vital Signs - 24 hr 06/23/23 19:13 06/23/23 23:00 06/24/23 03:00 Temperature 98.9 F 98.2 F 98 F Pulse Rate [Right Pulse Oximeter] 69 73 82 Respiratory Rate 18 18 18 Blood Pressure [Ri ght Arm] 105/66 100/55 L 123/67 Pulse Oximetry 94 89 97 Oxygen Delivery Me thod Room Air Room Air Room Air 06/24/23 07:00 06/24/23 07:00 06/24/23 11:00 Temperature 99 F 98.7 F Pulse Rate [Right Pulse Oximeter] 74 74 72 Respiratory Rate 18 18 18 Blood Pressure [Ri ght Arm] 169/95 H 164/95 H Pulse Oximetry 94 95 Oxygen Delivery Me thod Room Air Room Air 06/24/23 14:37 06/24/23 14:37 Temperature 98.6 F Pulse Rate [Right Pulse Oximeter] 75 75 Respiratory Rate 20 20 Blood Pressure [Ri t Arm] 156/93 H Pulse Oximetry 93 Oxygen Delivery Me thod Room Air Documenting provider has reviewed patient's vital signs: yes Labs Labs: Laboratory Results - last 24 hr 06/24/23 07:50 WBC 9.32 RBC 4.37 Hgb 13.6 Hct 42.3 MCV 97 MCH 31 MCHC 32 RDW Coeff of Gunnar 14.0 Plt Count 376 Neut % (Auto) 83.3 H Lymph % (Auto) 9.1 L [place] % (Auto) 5.3 Eos % (Auto) 0.8 Baso % (Auto) 0.4 Neut # (Auto) 7.80 H Lymph # (Auto) 0.80 L [place] # (Auto) 0.50 Eos # (Auto) 0.07 Baso # (Auto) 0.04 Abs Immat Gran (auto) 0.10 Imm/Tot Granulo (auto) 1.1 INR 2.12 H Sodium 137 Potassium 3.6 Chloride 101 Carbon Dioxide 24 Anion Gap 12 BUN 7 Creatinine 0.5 Estimated Creat Clear 43.92 Estimated GFR 101 Glucose 117 H Calcium 9.2 Total Bilirubin 0.7 Direct Bilirubin 0.1 AST 37 H ALT 29 Alkaline Phosphatase 110 Troponin I 0.03 Total Protein 7.2 Albumin 4.2 Lipase 39 TSH 1.530
[2023-06-24] MEDS: WARFARIN 2 MG TABLET 4 MG PO (16:59)
[2023-06-24] MEDS: PROCHLORPERAZINE 5 MG/ML VIAL IV (17:03)
--- NOTE | 2023-06-24 17:19 | PC.NURSE ---
Patient A&O, VSS and afebrile today. C/o pain in lower back and left buttocks which PRN Tylenol given x1 dose this morning. No emesis today but ongoing nausea; PRN compazine given x1 dose this evening @ 1700. Patient Ax1 to commode or BR with gait belt & walker. Mostly incontinent of urine today with only 2 times voiding in the commode. No BM today- H. Pylori has been ordered but unable to collect sample. Patient has had very little PO intake today as she's afraid to vomit after eating. Only had a few bites of applesauce & pudding. Bedside Abd ultrasound performed showing mild gallbladder distention- new from previous CT on 06/22. LR infusing at 75 mL/hr PIV in right wrist C/D/I. Patient will be NPO @ 0000 for scheduled upper endoscopy tomorrow 06/25. HIDA scan ordered for Tuesday 06/26.
[2023-06-24 19:00] VITALS: BP 164/94; PULSE 79; RESP 16; TEMP 37; O2SAT 94
[2023-06-24] MEDS: ROPINIROLE HCL 1 MG TABLET PO (20:06)
[2023-06-24 23:00] VITALS: BP 149/97; PULSE 82; RESP 18; TEMP 36.8; O2SAT 95
--- NOTE | 2023-06-25 | CRLHL7_ITS ---
For Patients: As a result of the Century Cures Act, medical imaging exams and procedure reports are released immediately into your electronic medical record. You may view this report before your referring provider. If you have questions, please contact your health care provider. INDICATION: Nausea and vomiting. Cholelithiasis. L1 compression fracture. TECHNIQUE : Limited single-contrast upper GI. (Back pain prevents supine and oblique supine imaging) FINDINGS: Slightly tortuous esophagus. No stricture, mass, or obstruction. No holdup of barium. Tiny sliding type hiatal hernia. Reflux was not elicited in the upright position (patient could not lie down due to back pain). Brief evaluation of the stomach and duodenum indicate that they are unremarkable. 1 minute 34 seconds fluoroscopy time utilized. IMPRESSION: 1. Limited upper GI due to back pain. No obstruction. No holdup of barium. 2. Small sliding-type esophageal hiatal hernia. Reflux could not be elicited in the upright position. 3. Mildly tortuous esophagus without stricture, mass, or obstruction. Dictated by Eber Cook MD @ 06/25/2023 9:49:23 AM (Electronically Signed)
--- NOTE | 2023-06-25 06:15 | PC.NURSE ---
Alert and oriented x 3. Patient having increased burping and hiccups with movement, no emesis or nausea reported. Ambulates to toilet with stand by assist, patient does also have periods of incontinence, patient continent x 2 and incontinent x 2 this shift. Pain reported to low back and left hip, pain managed with PRN's and ice pack. NPO at midnight, LR running at 75/hr.
[2023-06-25 06:41] LABS: INR 2.48 (0.91-1.10); Prothrombin Time 28.7 Seconds
[2023-06-25 06:42] LABS: Chloride* 98 mmol/L (96-114); Sodium* 134 mmol/L (135-149)
[2023-06-25 06:44] LABS: Creatinine* 0.6 mg/dL (0.5-1.5); Est. Creatinine Clearance* 43.92; Estimated Glomerular Filt Rate 97 ml/min
[2023-06-25 06:45] LABS: Anion Gap 7 mEq/L (7-15); Blood Urea Nitrogen* 7 mg/dL (7-30); Calcium* 8.7 mg/dL (8.4-10.6); Carbon Dioxide* 29 mmol/L (20-32); Glucose* 89 mg/dL (60-115)
[2023-06-25 06:49] LABS: Potassium* 2.8 mmol/L (3.6-5.1)
[2023-06-25 07:08] LABS: Magnesium* 2.1 mg/dL (1.5-2.6)
[2023-06-25 08:00] VITALS: BP 120/82; PULSE 64; RESP 18; TEMP 36.7; O2SAT 96
[2023-06-25] MEDS: OMEPRAZOLE 20 MG CAPSULE DR PO (09:00)
[2023-06-25] MEDS: POTASSIUM CHLORIDE 10 MEQ CAPSULE ER 20 MEQ PO (09:00)
[2023-06-25] MEDS: IPRAT-ALBUT 0.5-2.5 MG/3 ML NEB 1 NEB IH ×2 (09:00→19:10)
[2023-06-25] MEDS: LACTATED RINGERS 1000 ML 1,000 ML 75 ML IV ×2 (09:00→23:58)
[2023-06-25] MEDS: FLUOXETINE HCL 20 MG CAPSULE 40 MG PO (09:00)
[2023-06-25] MEDS: ACETAMINOPHEN 500 MG TABLET 1000 MG PO ×2 (09:02→20:58)
[2023-06-25] MEDS: MONTELUKAST 10 MG TABLET PO (10:22)
[2023-06-25] MEDS: SENNOSIDES 1 TAB TABLET 2 TAB PO ×2 (10:22→20:42)
[2023-06-25] MEDS: MAGNESIUM OXIDE 400 MG TABLET PO (10:22)
[2023-06-25] MEDS: polyethylene glycoL 3350 17 GM PACK PO (10:22)
[2023-06-25] MEDS: PROCHLORPERAZINE 5 MG/ML VIAL IV ×2 (11:20→13:12)
[2023-06-25 12:00] VITALS: BP 123/78; PULSE 67; RESP 18; TEMP 36.8; O2SAT 95
[2023-06-25 13:09] VITALS: BMI 29.0
[2023-06-25] MEDS: guaiFENesin 600 MG TAB.ER.12H PO (13:12)
[2023-06-25] MEDS: POTASSIUM CHLORIDE 10 MEQ CAPSULE ER 40 MEQ PO (13:12)
[2023-06-25 15:40] VITALS: BP 156/97; PULSE 77; RESP 16; TEMP 36.8; O2SAT 91
--- NOTE | 2023-06-25 16:39 | PM.IMPN1 ---
Progress Note: A&P Assessment and plan (1) Nausea and vomiting: Problem details: Currently intractable nausea and vomiting. Cause for this is uncertain. Three weeks ago she had a bowel obstruction causing vomiting. But no evidence of that now. Prior to that she has had a history of vomiting in the past. The cause for that was unclear as well. Current medications are not obvious culprits for this. No obvious structural abnormality seen on CT scan of her abdomen and pelvis. She does still have a gallbladder. Ultrasound shows a gallstone. LFTs are normal. She has got no tenderness in her right upper quadrant. No history of gastroparesis. Gastroenteritis is a possibility though the absence of diarrhea makes this less likely. Antiemetics have not provided any consistent benefit. Obtain upper GI x-ray, HIDA scan. Consider EGD. May need to stop anticoagulation for her PE temporarily for EGD Status: Acute (2) Hypokalemia: Problem details: Replace and follow Status: Acute (3) Schizoaffective disorder: Problem details: Hold perphenazine well treating with other antipsychotics for nausea and vomiting Status: Acute (4) COPD (chronic obstructive pulmonary disease): Problem details: Quiescent. Status: Acute (5) Multiple subsegmental pulmonary emboli without acute cor pulmonale: Problem details: Continue warfarin to a therapeutic INR for ongoing treatment. May need to stop if evidence of bleeding or if needing invasive procedure Status: Acute Plan Continue in-hospital to evaluate and manage intractable nausea and vomiting. Continue IV fluids and antiemetics. Time Spent With Patient Total time spent: Total time spent today is 50 minutes, 40 minutes in coordination care discussing with other providers and the patient ongoing evaluation management of intractable nausea and vomiting Subjective Date Seen: 06/25/23 Interval history: 67-year-old female admitted to the hospital with intractable nausea and vomiting starting yesterday. Patient had recent hospitalization at [facility] for vomiting. At that time she was diagnosed with a small-bowel obstruction. She was hospitalized from June 01 and June 13 for that. She was evaluated in our emergency room and found to have a normal CT of her abdomen without evidence of bowel obstruction. She was seen to have moderate amount of stool in her colon. She reports he has not had a bowel movement for a couple days but is not feeling particularly constipated. She has also had a history of nausea and vomiting in the past. The cause of this is not been clear but she has been on p.r.n. Zofran for some time. She is not aware of any fever. She is not having significant abdominal pain. She continues to have intractable nausea and vomiting today however. She has been treated with ondansetron and Compazine and lorazepam. These have given her some sedation but without relief of her vomiting. She normally takes perphenazine for her schizoaffective disorder. She is not sure if she had it last night. She had a L1 compression fracture in March and has been in a fdc since that time except for the 2 weeks that she was at [place] for her bowel obstruction. Initially she was at [facility] in [place] and then when she went to [place] she was discharged to [address] [place] [address]. She is therefore rehab for her back pain and overall disability. While she was [place] she was also found to have pulmonary emboli. She has underlying COPD and asthma in her history as well. She reports no current chest pain or shortness of breath Over the past 3 days she has continued to have intractable nausea and occasional small emesis. She has attempted to eat a small amount of food but gets more nauseated afterwards. She has not had any except abdominal pain she is not having a fever. For 2 days she has had a suppository without having a stool. Another bisacodyl suppository today without results as well. A variety of antiemetics have been used without reliable success. We have tried Zofran with intermittent success and Reglan without obvious benefit. Patient would like to try Compazine today. Zyprexa was not of obvious benefit. This morning she reported feeling better without nausea when she woke up but shortly after that she became quite nauseated again. Upper GI x-ray was unremarkable. Exam Narrative: Exam Narrative: She is alert and appears in no distress. Respirations are clear to auscultation. Cardiovascular: S1, S2, regular rate and rhythm. Abdomen: Bowel sounds active. Abdomen is soft without tenderness or mass. No edema Const: Vital Signs, click to edit/add: Vital Signs - 24 hr 06/24/23 19:00 06/24/23 23:00 06/24/23 23:00 Temperature 98.6 F 98.3 F Pulse Rate [Right Pulse Oximeter] 79 82 82 Respiratory Rate 16 18 18 Blood Pressure [Ri ght Arm] 164/94 H 149/97 H Pulse Oximetry 94 95 Oxygen Delivery Me thod Room Air Room Air 06/25/23 08:00 06/25/23 08:00 06/25/23 12:00 Temperature 98.0 F 98.2 F Pulse Rate [Right Pulse Oximeter] 64 64 67 Respiratory Rate 18 18 18 Blood Pressure [Ri ght Arm] 120/82 123/78 Pulse Oximetry 96 95 Oxygen Delivery Me thod Room Air Room Air 06/25/23 15:40 06/25/23 15:40 Temperature 98.3 F Pulse Rate [Right Pulse Oximeter] 77 77 Respiratory Rate 16 16 Blood Pressure [Ri ght Arm] 156/97 H Pulse Oximetry 91 Oxygen Delivery Me thod Room Air Documenting provider has reviewed patient's vital signs: yes Labs Labs: Laboratory Results - last 24 hr 06/25/23 06/25/23 05:43 06:52 INR 2.48 H Sodium 134 L Potassium 2.8 L* Chloride 98 Carbon Dioxide 29 Anion Gap 7 BUN 7 Creatinine 0.6 Estimated Creat Clear 43.92 Estimated GFR 97 Glucose 89 Calcium 8.7 Magnesium 2.1 Lab Acknowledgement Test Added
[2023-06-25] MEDS: ALBUTEROL INHALER 2 PUFF IH (17:09)
[2023-06-25 19:00] VITALS: BP 173/101; PULSE 82; RESP 82; TEMP 37; O2SAT 91
[2023-06-25] MEDS: ROPINIROLE HCL 1 MG TABLET PO (20:42)
[2023-06-25] MEDS: PERPHENAZINE 4 MG PO (20:42)
--- NOTE | 2023-06-25 22:11 | PC.NURSE ---
End of Shift: Patient pleasant and cooperative. Patient vitally stable, lungs clear, BS WNL, IV running LR at 75. Patient rates back pain 7/10 once, tylenol given then later patient reported to pain. Patient is always holding emesis bag and has the hiccups on and off but no emesis this shift and some nausea, no anti nausea given this shift. Patient did eat a couple bites of toast and scrambled eggs. Patient drinking water and urinating well. Patient SBA/walker.
[2023-06-25 23:00] VITALS: BP 124/74; PULSE 77; RESP 16; TEMP 36.5; O2SAT 95
[2023-06-26] MEDS: IPRAT-ALBUT 0.5-2.5 MG/3 ML NEB 1 NEB IH ×2 (01:55→14:16)
[2023-06-26 03:00] VITALS: BP 104/64; PULSE 65; RESP 16; TEMP 36.6; O2SAT 91
--- NOTE | 2023-06-26 06:28 | PC.NURSE ---
Shift note: Pt ambulating with A1, walker and GB. Alert and oriented. No N/V reported. Denied pain tonight. Pt has been NPO since midnight pending Hepatobiliary scan to day. Had adequate sleep. Vitally stable.
[2023-06-26 06:58] LABS: Chloride* 101 mmol/L (96-114); Potassium* 3.5 mmol/L (3.6-5.1); Sodium* 135 mmol/L (135-149)
[2023-06-26 07:00] VITALS: BP 115/75; PULSE 66; RESP 18; TEMP 36.6; O2SAT 94
[2023-06-26 07:01] LABS: Creatinine* 0.6 mg/dL (0.5-1.5); Est. Creatinine Clearance* 43.92; Estimated Glomerular Filt Rate 97 ml/min
[2023-06-26 07:02] LABS: Anion Gap 9 mEq/L (7-15); Blood Urea Nitrogen* 8 mg/dL (7-30); Calcium* 8.9 mg/dL (8.4-10.6); Carbon Dioxide* 25 mmol/L (20-32); Glucose* 90 mg/dL (60-115)
[2023-06-26 07:07] LABS: INR 2.54 (0.91-1.10); Prothrombin Time 29.3 Seconds
--- NOTE | 2023-06-26 08:30 | CRLHL7_ITS ---
For Patients: As a result of the Century Cures Act, medical imaging exams and procedure reports are released immediately into your electronic medical record. You may view this report before your referring provider. If you have questions, please contact your health care provider. INDICATION: Nausea and vomiting. Abdominal pain. TECHNIQUE: 5.1 mCi Tc-99m labeled Mebrofenin. 1.45 mcg CCK IV. COMPARISON: Correlation is made with a preliminary Teleradiology report. Correlation is made with a right upper quadrant ultrasound June 24, 2023. FINDINGS: Normal uptake and excretion tracer by the liver. Activity is identified promptly within the gallbladder and the extrahepatic biliary tree between 10 and 15 minutes after injection. The gallbladder continues to fill up to 1 hour. After the administration of CCK the gallbladder ejection fraction is calculated at 21 percent which is below the lower limit of normal of 35 percent. This can be seen in chronic cholecystitis or biliary dyskinesia. Please correlate clinically. No significant discrepancy between this final report and the preliminary Teleradiology report. IMPRESSION: 1. No evidence for cystic duct or common duct obstruction. No biliary leak. 2. Abnormally low gallbladder ejection fraction of 21 percent. Dictated by Eber Cook MD @ 06/26/2023 10:52:11 AM (Electronically Signed)
[2023-06-26] MEDS: SENNOSIDES 1 TAB TABLET 2 TAB PO (10:42)
[2023-06-26] MEDS: polyethylene glycoL 3350 17 GM PACK PO (10:43)
[2023-06-26] MEDS: MAGNESIUM OXIDE 400 MG TABLET PO (10:43)
[2023-06-26] MEDS: MONTELUKAST 10 MG TABLET PO (10:43)
[2023-06-26] MEDS: FLUOXETINE HCL 20 MG CAPSULE 40 MG PO (10:43)
[2023-06-26] MEDS: OMEPRAZOLE 20 MG CAPSULE DR PO (10:43)
[2023-06-26] MEDS: SODIUM CHLORIDE 0.9 % (FLUSH) 10 ML SYRINGE 5 ML IVF ×2 (10:44→21:12)
[2023-06-26] MEDS: ACETAMINOPHEN 500 MG TABLET 1000 MG PO ×2 (11:25→18:04)
[2023-06-26 11:26] VITALS: BP 132/82; PULSE 68; RESP 16; TEMP 36.1; O2SAT 96
--- NOTE | 2023-06-26 13:12 | REH.PT ---
Attempted to see pt 2x. First encounter pt and just received breakfast after scan and requested PT to return later. Second encounter, pt reported just having bowel movement and requested about an hour to rest. PT will follow up.
[2023-06-26 13:32] LABS: H pylori Ag Stool* POSITIVE (Negative)
[2023-06-26] MEDS: POTASSIUM CHLORIDE 10 MEQ CAPSULE ER 20 MEQ PO (14:16)
--- NOTE | 2023-06-26 14:25 | PC.NURSE ---
End of shift note: Patient had HIDA scan this morning. Regular diet resumed and fluids stopped. Has been taking in adequate PO fluids. Ate 75% of brunch. Had one large incontinent stool and samples were sent. Patient pleasant, alert and oriented today. SBA with gaitbelt. PT/OT following patient. General surgery consult placed today. PIV infiltrated today. Bowel sounds active, lung sounds diminished, scheduled nebs and sating 95% on RA. Skin intact. Has been on phone talking to significant other.
[2023-06-26 15:00] VITALS: BP 116/69; PULSE 81; RESP 18; TEMP 36.2; O2SAT 90
--- NOTE | 2023-06-26 15:55 | P.IMPN_ITS ---
Progress Note: A&P Assessment and plan (1) Nausea and vomiting: Problem details: Currently intractable nausea and vomiting. Cause for this is uncertain. Three weeks ago she had a bowel obstruction causing vomiting. But no evidence of that now. Prior to that she has had a history of vomiting in the past. The cause for that was unclear as well. Current medications are not obvious culprits for this. No obvious structural abnormality seen on CT scan of her abdomen and pelvis. She does still have a gallbladder. Ultrasound shows a gallstone. LFTs are normal. She has got no tenderness in her right upper quadrant. No history of gastroparesis. Gastroenteritis is a possibility though the absence of diarrhea makes this less likely. Antiemetics have not provided any consistent benefit. Upper GI x-ray and HIDA scan are unremarkable except for a low ejection fraction of 21% on the HIDA scan. No findings to explain her current symptoms. Today she is feeling much better. Status: Acute (2) Hypokalemia: Problem details: Replace and follow Status: Acute (3) Schizoaffective disorder: Problem details: Back on home perphenazine. Stable Status: Acute (4) COPD (chronic obstructive pulmonary disease): Problem details: Quiescent. Status: Acute (5) Multiple subsegmental pulmonary emboli without acute cor pulmonale: Problem details: Continue warfarin to a therapeutic INR for ongoing treatment. May need to stop if evidence of bleeding or if needing invasive procedure Status: Acute Plan Continue in-hospital to overnight to establish that she is able to tolerate p.o. food and fluid if she can she can be discharged back to the [address] [place] [address] for ongoing rehab. Time Spent With Patient Total time spent: Total time spent today is 35 minutes, 25 minutes in coordination of care and discussing with patient and other providers management of nausea and vomiting Subjective Date Seen: 06/26/23 Interval history: 67-year-old female admitted to the hospital with intractable nausea and vomiting starting yesterday. Patient had recent hospitalization at [facility] for vomiting. At that time she was diagnosed with a small-bowel obstruction. She was hospitalized from June 01 and June 13 for that. She was evaluated in our emergency room and found to have a normal CT of her abdomen without evidence of bowel obstruction. She was seen to have moderate amount of stool in her colon. She reports he has not had a bowel movement for a couple days but is not feeling particularly constipated. She has also had a history of nausea and vomiting in the past. The cause of this is not been clear but she has been on p.r.n. Zofran for some time. She is not aware of any fever. She is not having significant abdominal pain. She continues to have intractable nausea and vomiting today however. She has been treated with ondansetron and Compazine and lorazepam. These have given her some sedation but without relief of her vomiting. She normally takes perphenazine for her schizoaffective disorder. She is not sure if she had it last night. She had a L1 compression fracture in March and has been in a alf since that time except for the 2 weeks that she was at [place] for her bowel obstruction. Initially she was at [facility] in [place] and then when she went to [place] she was discharged to [address] [place] [address]. She is therefore rehab for her back pain and overall disability. While she was [place] she was also found to have pulmonary emboli. She has underlying COPD and asthma in her history as well. She reports no current chest pain or shortness of breath Over the past 3 days she has continued to have intractable nausea and occasional small emesis. She has attempted to eat a small amount of food but gets more nauseated afterwards. She has not had any except abdominal pain she is not having a fever. For 2 days she has had a suppository without having a stool. Another bisacodyl suppository today without results as well. A variety of antiemetics have been used without reliable success. We have tried Zofran with intermittent success and Reglan without obvious benefit. Patient would like to try Compazine today. Zyprexa was not of obvious benefit. Yesterday morning she reported feeling better without nausea when she woke up but shortly after that she became quite nauseated again. Upper GI x-ray was unremarkable. Today she woke up without nausea. Generally feeling better. She underwent HIDA scan which was unremarkable showing no obstruction but did show a decreased ejection fraction of 21%. She has been tolerating p.o. food and fluid today. She has no other concerns. She has had a large loose stool today Exam Narrative: Exam Narrative: She is alert and appears in no distress. Breathing is unlabored. Cardiovascular: S1, S2, regular and rhythm. Abdomen is soft without tenderness or mass. Extremities without edema. Const: Vital Signs, click to edit/add: Vital Signs - 24 hr 06/25/23 19:00 06/25/23 23:00 06/26/23 03:00 Temperature 98.6 F 97.7 F 97.9 F Pulse Rate [Right Pulse Oximeter] 82 77 65 Respiratory Rate 82 H 16 16 Blood Pressure [Ri ght Arm] 173/101 H 124/74 104/64 Pulse Oximetry 91 95 91 Oxygen Delivery Me thod Room Air Room Air Room Air 06/26/23 07:00 06/26/23 11:26 Temperature 97.8 F 97.0 F L Pulse Rate [Right Pulse Oximeter] 66 68 Respiratory Rate 18 16 Blood Pressure [Ri ght Arm] 115/75 132/82 Pulse Oximetry 94 96 Oxygen Delivery Me thod Room Air Room Air Documenting provider has reviewed patient's vital signs: yes Labs Labs: Laboratory Results - last 24 hr 06/26/23 06/26/23 05:57 13:04 INR 2.54 H Sodium 135 Potassium 3.5 L Chloride 101 Carbon Dioxide 25 Anion Gap 9 BUN 8 Creatinine 0.6 Estimated Creat Clear 43.92 Estimated GFR 97 Glucose 90 Calcium 8.9 Stool H. pylori Ag POSITIVE A
[2023-06-26] MEDS: guaiFENesin 600 MG TAB.ER.12H PO (16:14)
--- NOTE | 2023-06-26 17:27 | P.GSCN_ITS ---
History of Present Illness Consult details Date Seen: 06/26/23 Consult date: 06/26/23 Narrative: The patient is a 67-year-old female who was admitted to the hospital on 06/23 with persistent nausea and vomiting. Of note, she was hospitalized at [facility] for vomiting and was diagnosed with a small-bowel obstruction from June 01 through the . On this admission here, her CT scan was found to be normal, however she did have a moderate amount of stool in her colon. She had not had a bowel movement for several days. She does have a history of nausea and vomiting and has p.r.n. Zofran for this. She was treated with Zofran Compazine, Zyprexa, Reglan and lorazepam as well which did not relieve her vomiting. She has a history of an L1 compression fracture which was sustained in March and she was living at a care home. She was then admitted to [facility] with a bowel obstruction and also found to have pulmonary emboli and started on anticoagulation. She was discharged to [facility] where she has been undergoing rehab until this most recent episode of nausea. Because of the stool in her colon she has been given suppositories and has had some small bowel movements, but had nothing significant until today. Besides CT scan she had an upper GI which was unremarkable. HIDA scan was obtained which showed no acute cholecystitis but she did have a reduced ejection fraction of 21%. Today she was tolerating p.o. food and fluid. She also had a large loose stool likely after the contrast from the esophagram. She states that her nausea resolved this AM and she is back to normal. She denies abdominal pain and had not had any this hospitalization. [facility] Medical History (Updated 06/26/23 @ 17:36 by Елена Diez MD) Nausea and vomiting ?R11.2 - Nausea with vomiting, unspecified (ICD-10) Stable burst fracture of unspecified lumbar vertebra, subsequent encounter for fracture with routine healing ?S32.001D - Stable burst fracture of unspecified lumbar vertebra, subsequent encounter for fracture with routine healing (ICD-10) History of malignant neoplasm of breast ?Z85.3 - Personal history of malignant neoplasm of breast (ICD-10) RLS (restless legs syndrome) ?G25.81 - Restless legs syndrome (ICD-10) Multiple subsegmental pulmonary emboli without acute cor pulmonale ?I26.94 - Multiple subsegmental pulmonary emboli without acute cor pulmonale (ICD-10) Chronic fatigue ?R53.82 - Chronic fatigue, unspecified (ICD-10) COPD (chronic obstructive pulmonary disease) ?J44.9 - Chronic obstructive pulmonary disease, unspecified (ICD-10) Cervical disc disorder ?M50.90 - Cervical disc disorder, unspecified, unspecified cervical region (ICD-10) VIBHA (obstructive sleep apnea) ?G47.33 - Obstructive sleep apnea (adult) (pediatric) (ICD-10) Mild persistent asthma ?J45.30 - Mild persistent asthma, uncomplicated (ICD-10) Schizoaffective disorder ?F25.9 - Schizoaffective disorder, unspecified (ICD-10) Major depressive disorder, single episode ?F32.9 - Major depressive disorder, single episode, unspecified (ICD-10) Small bowel obstruction ?K56.609 - Unspecified intestinal obstruction, unspecified as to partial versus complete obstruction (ICD-10) Family History (Updated 06/23/23 @ 01:07 by Prasanna Robbins DO) Father Lung cancer Mother Stroke Social History What is your current living situation?: I presently have a place to live Problems where you live: no known problems Problems where you live details: NA In the past 12 months, utilities in danger of being shut off: no In past 12 months, lack of transportation kept you from medical appts, meetings, work, or getting things needed for daily living: no In the past 12 mos, have been you worried that your food would run out before you had money to buy more?: never true In the past 12 mos, the food you bought just didn't last and you didn't have money to buy more?: never true Highest level of school completed/degree received: Associate degree: occupational, technical, vocational program Smoking Status: Former smoker What tobacco products do you use: cigarettes Smoking quit date/years: >15 years ago Non-prescribed substance use: denies use Caffeine: Yes How often does anyone, including family, friends and others, physically hurt you : never How often does anyone, including family, friends and others, insult or talk down to you: never How often does anyone, including family, friends and others, threaten you with harm: never How often does anyone, including family, friends and others, scream or curse at you: never service: No Meds Home Medications and Allergies Home Medications Medication Instructions Recorded Confirmed Type acetaminophen 500 mg tablet 1,000 mg PO Q6H PRN 06/22/23 06/25/23 History (Acetaminophen Extra Strength) albuterol sulfate 90 mcg/actuation 2 puff inhalation Q4H PRN dyspnea 06/22/23 06/22/23 History aerosol inhaler calcium carbonate 600 mg-vitamin 1 tab PO DAILY 06/22/23 06/22/23 History D3 10 mcg (400 unit) tablet (Calcium 600 + D(3)) cholecalciferol (vitamin D3) 50 50 mcg PO DAILY 06/22/23 06/22/23 History mcg (2,000 unit) capsule fluoxetine 40 mg capsule 40 mg PO HS 06/22/23 06/25/23 History fluticasone 500 mcg-salmeterol 50 1 inh inhalation BID 06/22/23 06/25/23 History mcg/dose blistr powdr for inhalation (Advair Diskus) ipratropium 0.5 mg-albuterol 3 mg 3 ml inhalation Q6H PRN 06/22/23 06/25/23 History (2.5 mg base)/3 mL nebulization soln magnesium oxide 400 mg PO DAILY 06/22/23 06/22/23 History melatonin 3 mg capsule 3 mg PO HS PRN 06/22/23 06/22/23 History montelukast 10 mg tablet 10 mg PO HS 06/22/23 06/23/23 History perphenazine 4 mg tablet 4 mg PO HS 06/22/23 06/25/23 History ropinirole 0.5 mg tablet 1 mg PO QHS 06/22/23 06/22/23 History warfarin 4 mg tablet 4 mg PO DAILY 06/22/23 06/25/23 History guaifenesin 400 mg tablet (Chest 400 mg PO BID 06/25/23 06/25/23 History Congestion Relief) omeprazole 20 mg capsule,delayed 20 mg PO DAILY 06/25/23 06/25/23 History release ondansetron 4 mg disintegrating 4 mg PO Q6H PRN 06/25/23 06/25/23 History tablet peg 400-propylene glycol (PF) 0.4 1 drp ophthalmic (eye) Q1H PRN 06/25/23 06/25/23 History %-0.3 % eye drops in a dropperette (Systane (PF)) polyethylene glycol 3350 17 17 g PO DAILY PRN 06/25/23 06/25/23 History gram/dose oral powder (Miralax) Allergies Allergy/AdvReac Type Severity Reaction Status Date / Time celecoxib [From Celebrex] Allergy Unknown Verified 06/25/23 09:39 nickel Allergy Unknown Verified 06/25/23 09:39 Sulfa (Sulfonamide Allergy Unknown Verified 06/25/23 09:39 Antibiotics) Exam Narrative: Exam Narrative: General: No acute distress. Abdomen: soft. No upper abdominal scars. Non-tender. Const: Vital Signs, click to edit/add: Vital Signs - 24 hr 06/25/23 19:00 06/25/23 23:00 06/26/23 03:00 Temperature 98.6 F 97.7 F 97.9 F Pulse Rate [Right Pulse Oximeter] 82 77 65 Respiratory Rate 82 H 16 16 Blood Pressure [Ri ght Arm] 173/101 H 124/74 104/64 Pulse Oximetry 91 95 91 Oxygen Delivery Me thod Room Air Room Air Room Air 06/26/23 07:00 06/26/23 11:26 06/26/23 15:00 Temperature 97.8 F 97.0 F L 97.1 F L Pulse Rate [Right Pulse Oximeter] 66 68 81 Respiratory Rate 18 16 18 Blood Pressure [Ri ght Arm] 115/75 132/82 116/69 Pulse Oximetry 94 96 90 Oxygen Delivery Me thod Room Air Room Air Room Air Results Labs Labs: Abnormal lab results 06/26/23 06/26/23 Range/Units 05:57 13:04 INR 2.54 H (0.91-1.10) Potassium 3.5 L (3.6-5.1) mmol/L Stool H. pylori Ag POSITIVE A (Negative) Diabetes panel 06/26/23 Range/Units 05:57 Sodium 135 (135-149) mmol/L Potassium 3.5 L (3.6-5.1) mmol/L Chloride 101 (96-114) mmol/L Carbon Dioxide 25 (20-32) mmol/L BUN 8 (7-30) mg/dL Creatinine 0.6 (0.5-1.5) mg/dL Glucose 90 (60-115) mg/dL Calcium 8.9 (8.4-10.6) mg/dL Calcium panel 06/26/23 Range/Units 05:57 Calcium 8.9 (8.4-10.6) mg/dL Pituitary panel 06/26/23 Range/Units 05:57 Sodium 135 (135-149) mmol/L Potassium 3.5 L (3.6-5.1) mmol/L Chloride 101 (96-114) mmol/L Carbon Dioxide 25 (20-32) mmol/L BUN 8 (7-30) mg/dL Creatinine 0.6 (0.5-1.5) mg/dL Glucose 90 (60-115) mg/dL Calcium 8.9 (8.4-10.6) mg/dL Adrenal panel 06/26/23 Range/Units 05:57 Sodium 135 (135-149) mmol/L Potassium 3.5 L (3.6-5.1) mmol/L Chloride 101 (96-114) mmol/L Carbon Dioxide 25 (20-32) mmol/L BUN 8 (7-30) mg/dL Creatinine 0.6 (0.5-1.5) mg/dL Glucose 90 (60-115) mg/dL Calcium 8.9 (8.4-10.6) mg/dL All other labs normal. Imaging Chest x-ray: report reviewed and image reviewed Abdomen CT scan report/results: report reviewed and image reviewed Abdominal ultrasound report/results: report reviewed and image reviewed Additional studies: CT scan of the abdomen pelvis done on 06/22/2023: IMPRESSION: Age-indeterminate L1 compression fracture. Recommend correlation with point tenderness. 7 millimeter nonobstructing left renal stone. Moderate colonic stool burden. Small hiatal hernia. Otherwise, no acute intra-abdominal/pelvic abnormality. Please note that all CT scans at this facility use dose modulation, iterative reconstruction, and/or weight-based dosing when appropriate to reduce radiation dose to as low as reasonably achievable. Dictated by Gaudencio Vu MD @ 06/22/2023 11:50:[address] scan of the head done 06/23/2023: IMPRESSION: IMPRESSION:1. No CT evidence of acute cortical infarct. No acute intracranial hemorrhage. No other acute intracranial findings. Please note that all CT scans at this facility use dose modulation, iterative reconstruction, and/or weight-based dosing when appropriate to reduce radiation dose to as low as reasonably achievable. Dictated by Den Fagan MD @ 06/23/2023 1:10:38 PM Ultrasound of the abdomen from 06/22/2023: IMPRESSION: Gallstone with new mild gallbladder distention. No gallbladder wall thickening or pericholecystic fluid however. Consider HIDA scan to further evaluate as clinically warranted. Dictated by Huang Roy MD @ 06/24/2023 1:12:49 PM Upper GI series 06/25/2023: IMPRESSION: 1. Limited upper GI due to back pain. No obstruction. No holdup of barium. 2. Small sliding-type esophageal hiatal hernia. Reflux could not be elicited in the upright position. 3. Mildly tortuous esophagus without stricture, mass, or obstruction. Dictated by Eber Cook MD @ 06/25/2023 9:49:23 AM HIDA scan 06/26/2023: IMPRESSION: 1. No evidence for cystic duct or common duct obstruction. No biliary leak. 2. Abnormally low gallbladder ejection fraction of 21 percent. Dictated by Eber Cook MD @ 06/26/2023 10:52:11 AM Assessment and Plan Assessment and plan (1) Nausea and vomiting: Problem comment: Currently intractable nausea and vomiting. Cause for this is uncertain. Three weeks ago she had a bowel obstruction causing vomiting. But no evidence of that now. Prior to that she has had a history of vomiting in the past. The cause for that was unclear as well. Current medications are not obvious culprits for this. No obvious structural abnormality seen on CT scan of her abdomen and pelvis. She does still have a gallbladder. Ultrasound shows a gallstone. LFTs are normal. She has got no tenderness in her right upper quadrant. No history of gastroparesis. Gastroenteritis is a possibility though the absence of diarrhea makes this less likely. Antiemetics have not provided any consistent benefit. Upper GI x-ray and HIDA scan are unremarkable except for a low ejection fraction of 21% on the HIDA scan. No findings to explain her current symptoms. Today she is feeling much better. Status: Acute (2) COPD (chronic obstructive pulmonary disease): Problem comment: Quiescent. Status: Acute (3) Multiple subsegmental pulmonary emboli without acute cor pulmonale: Problem comment: Continue warfarin to a therapeutic INR for ongoing treatment. May need to stop if evidence of bleeding or if needing invasive procedure Status: Acute (4) Biliary dyskinesia: Status: Acute (5) H. pylori infection: Status: Acute Plan The patient is a 67-year-old female with nausea and vomiting which has not responded to multiple antiemetics. Workup has been thorough and has failed to show an obvious cause, however she does have a reduced ejection fraction on HIDA scan. This could indicate biliary dyskinesia which is generally a chronic problem. Usually this will also cause abdominal discomfort after eating, not persistent nausea and vomiting. There is no sign of cholecystitis. She also has just tested positive for H pylori in her stool. This certainly could cause gastritis and nausea. -recommend treatment for H pylori. Could consider follow-up surveillance endoscopy as an outpatient. -since she was recently diagnosed with pulmonary embolism would refrain from cholecystectomy for biliary dyskinesia at this time as long as nausea continues to improve. She could follow up to discuss as an outpatient.
[2023-06-26] MEDS: PERPHENAZINE 4 MG PO (21:11)
[2023-06-26] MEDS: ROPINIROLE HCL 1 MG TABLET PO (21:11)
[2023-06-26] MEDS: ALBUTEROL INHALER 2 PUFF IH (21:15)
[2023-06-26 23:00] VITALS: BP 125/73; PULSE 61; RESP 18; TEMP 36.4; O2SAT 93
--- NOTE | 2023-06-26 23:02 | PC.NURSE ---
End of Shift: The patient is alert and orientated, calls appropriately. The patient reported moderate pain this evening @ 6/10 in lower back and L hip.. PRN Tylenol was given.. after administration the patient reported adequate relief with the pain @ 2/10. Prior to this I offered her a lidocaine patch for her L hip pain... she initially accepted. Then when I went to go apply it she refused placement due to thinking it had an interaction with warfarin.. I explained this is not the case. But she still refused. 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 Call light within reach. Showered this evening. Britney ANDREW BSN
[2023-06-27] MEDS: ACETAMINOPHEN 500 MG TABLET 1000 MG PO ×4 (00:22→19:17)
[2023-06-27] MEDS: MAG HYDROX/ALUMINUM HYD/SIMETH 30 ML ORAL.SUSP PO (02:15)
[2023-06-27 03:00] VITALS: BP 131/77; PULSE 63; RESP 16; TEMP 36.2; O2SAT 92
[2023-06-27] MEDS: guaiFENesin 600 MG TAB.ER.12H PO (03:52)
[2023-06-27] MEDS: IPRAT-ALBUT 0.5-2.5 MG/3 ML NEB 1 NEB IH ×2 (06:02→12:21)
--- NOTE | 2023-06-27 06:34 | PC.NURSE ---
Shift note [id number]: Patient alert & oriented x 4 and able to make needs known. She is transferring with assist of 1 and uses bathroom for toileting. Pt has been continent of bladder throughout the night and had a smear for BM. PRN Tylenol requested for what pt stated was 4/10 lower abdominal cramping with heat provided and PRN Maalox also given per pt request after she had no relief from previous interventions. No c/o nausea throughout the night with no vomiting noted or reported. Pt noted to have intermittent non-productive cough and requested PRN Mucinex for this. Pt used call light frequently throughout the night for medications and to have staff reposition in bed though pt is continued to be encouraged to participate in her cares as discharge plan is to return to SNF to complete rehab stay. ?
[2023-06-27 06:56] LABS: Chloride* 101 mmol/L (96-114)
[2023-06-27 06:57] LABS: Potassium* 3.4 mmol/L (3.6-5.1); Sodium* 137 mmol/L (135-149)
[2023-06-27 06:59] LABS: Creatinine* 0.6 mg/dL (0.5-1.5); Est. Creatinine Clearance* 43.92; Estimated Glomerular Filt Rate 97 ml/min
[2023-06-27 07:00] LABS: Anion Gap 6 mEq/L (7-15); Blood Urea Nitrogen* 7 mg/dL (7-30); Calcium* 8.5 mg/dL (8.4-10.6); Carbon Dioxide* 30 mmol/L (20-32); Glucose* 95 mg/dL (60-115)
[2023-06-27 07:01] LABS: INR 2.15 (0.91-1.10); Prothrombin Time 25.6 Seconds
[2023-06-27 08:23] VITALS: BP 129/80; PULSE 68; RESP 16; TEMP 36.2; O2SAT 94
[2023-06-27] MEDS: MAGNESIUM OXIDE 400 MG TABLET PO (08:36)
[2023-06-27] MEDS: MONTELUKAST 10 MG TABLET PO (08:36)
[2023-06-27] MEDS: POTASSIUM CHLORIDE 10 MEQ CAPSULE ER 20 MEQ PO (08:36)
[2023-06-27] MEDS: FLUOXETINE HCL 20 MG CAPSULE 40 MG PO (08:36)
[2023-06-27] MEDS: OMEPRAZOLE 20 MG CAPSULE DR PO (08:36)
[2023-06-27] MEDS: SENNOSIDES 1 TAB TABLET 2 TAB PO (08:37)
[2023-06-27] MEDS: WARFARIN 2 MG TABLET 4 MG PO (08:37)
[2023-06-27] MEDS: AMOXICILLIN 250 MG CAPSULE 1000 MG PO ×2 (08:42→20:25)
[2023-06-27] MEDS: CLARITHROMYCIN 500 MG TABLET PO ×2 (08:42→20:25)
--- NOTE | 2023-06-27 10:11 | NUTR.NU ---
RDN with low fiber diet education per patient request. RDN visited with patient and patient's (via phone). Patient requesting low fiber diet education related to recent hospitalization at [facility] for small bowel obstruction. Patient reports MD at [facility] recommended her to follow a low fiber diet for up to two weeks post discharge or longer if patient desires. She did not see a dietitian during that hospitalization. Patient is currently a resident at [address] [place] [address] and reports she has been requesting to see the dietitian there. Patient and was provided diet education on a low fiber diet. Discussed foods to include and foods to avoid. Recommended drinking adequate amounts of fluids, at least 8 cups daily. Verbal and written information as well as a sample menu provided from [facility]. Patient verbalized understanding. RDN's contact information was provided and patient was encouraged to contact RDN with questions.
--- NOTE | 2023-06-27 10:11 | PC.SOCIAL ---
Discharge planning: Spoke with the Electronics Specialist from [facility] who shared that due to a computer system merge today causing their computers to be down they would be unable to accept the pt back to their facility until tomorrow. well service derrick worker relayed this message to direct preparation plant supervisor, physician and charge nurse. financial recording clerk(direct preparation plant supervisor) is going to look into this matter, as pt is ready to discharge and go back to [facility] today. Pt did express that she would need transportation to [facility] set-up when she discharges. Social work to follow-up as needed.
[2023-06-27 11:23] VITALS: BP 115/70; PULSE 74; RESP 16; TEMP 37; O2SAT 94
--- NOTE | 2023-06-27 12:30 | PC.NURSE ---
End of shift report: Patient has been calm and cooperative this shift. Has worked with PT/OT and ambulated in [place] with nursing. Patient had a shower last evening, declined one today. Is tolerating a regular diet eating small amounts here and there. Has not had a BM today but reported a large loose one yesterday. Active bowel sounds, diminished lung sounds-getting scheduled nebs. Voiding without difficulty. No IV in place-MD okay with this. Vital signs within normal limits. Has chronic back pain from previous compression fracture. Ice, ambulation and Tylenol help with this. Denies nausea/vomiting. TEDs in place for hx of DVT and PE. Gave coumadin this morning. Replaced Potassium. Patient is ready for return to [facility] but are unable to take her back today due to safety concerns at [facility]. Patient aware.
--- NOTE | 2023-06-27 13:07 | PM.IMPN1 ---
Progress Note: A&P Assessment and plan (1) Nausea and vomiting: Problem details: Currently intractable nausea and vomiting. Cause for this is uncertain. Three weeks ago she had a bowel obstruction causing vomiting. But no evidence of that now. Prior to that she has had a history of vomiting in the past. The cause for that was unclear as well. Current medications are not obvious culprits for this. No obvious structural abnormality seen on CT scan of her abdomen and pelvis. She does still have a gallbladder. Ultrasound shows a gallstone. LFTs are normal. She has got no tenderness in her right upper quadrant. No history of gastroparesis. Gastroenteritis is a possibility though the absence of diarrhea makes this less likely. Antiemetics have not provided any consistent benefit. Upper GI x-ray and HIDA scan are unremarkable except for a low ejection fraction of 21% on the HIDA scan. No findings to explain her current symptoms. Today she is feeling much better. Has Hpylori. Will initiate treatment for that. Status: Acute (2) COPD (chronic obstructive pulmonary disease): Problem details: Quiescent. Status: Acute (3) Multiple subsegmental pulmonary emboli without acute cor pulmonale: Problem details: Continue warfarin to maintain therapeutic INR. Close monitoring needed while taking clarithromycin and amoxicillin. Status: Acute (4) Biliary dyskinesia: Problem details: 06/26/2023 HIDA scan shows ejection fraction 21%. No biliary obstruction. No further evaluation or treatment unless having significant ongoing postprandial symptoms Status: Acute (5) H. pylori infection: Problem details: Treat with clarithromycin 500 b.i.d. plus amoxicillin 1000 b.i.d. plus omeprazole for 2 weeks. One month after completing therapy recheck with H pylori stool antigen to confirm clearance of H pylori Status: Acute (6) Dietary counseling: Problem details: Patient had been on a low fiber diet after her bowel obstruction. I have recommended she be on a regular diet and possibly a high-fiber diet to deal with constipation. Status: Acute Plan [facility]. Time Spent With Patient Total time spent: Total time spent today is 55 minutes, 35 minutes in coordination of care discussing with patient other providers ongoing management of nausea, vomiting, appropriate diet and H pylori. Subjective Date Seen: 06/27/23 Interval history: 67-year-old female admitted to the hospital with intractable nausea and vomiting starting yesterday. Patient had recent hospitalization at [facility] for vomiting. At that time she was diagnosed with a small-bowel obstruction. She was hospitalized from June 01 and June 13 for that. She was evaluated in our emergency room and found to have a normal CT of her abdomen without evidence of bowel obstruction. She was seen to have moderate amount of stool in her colon. She reports he has not had a bowel movement for a couple days but is not feeling particularly constipated. She has also had a history of nausea and vomiting in the past. The cause of this is not been clear but she has been on p.r.n. Zofran for some time. She is not aware of any fever. She is not having significant abdominal pain. She continues to have intractable nausea and vomiting today however. She has been treated with ondansetron and Compazine and lorazepam. These have given her some sedation but without relief of her vomiting. She normally takes perphenazine for her schizoaffective disorder. She is not sure if she had it last night. She had a L1 compression fracture in March and has been in a detention since that time except for the 2 weeks that she was at [facility] for her bowel obstruction. Initially she was at [facility] in [place] and then when she went to [facility] she was discharged to [address] [place] [address]. She is therefore rehab for her back pain and overall disability. While she was [facility] she was also found to have pulmonary emboli. She has underlying COPD and asthma in her history as well. She reports no current chest pain or shortness of breath Over the past 3 days she has continued to have intractable nausea and occasional small emesis. She has attempted to eat a small amount of food but gets more nauseated afterwards. She has not had any except abdominal pain she is not having a fever. For 2 days she has had a suppository without having a stool. Another bisacodyl suppository today without results as well. A variety of antiemetics have been used without reliable success. We have tried Zofran with intermittent success and Reglan without obvious benefit. Patient would like to try Compazine today. Zyprexa was not of obvious benefit. Yesterday morning she reported feeling better without nausea when she woke up but shortly after that she became quite nauseated again. Upper GI x-ray was unremarkable. Today she woke up without nausea. Generally feeling better. She underwent HIDA scan which was unremarkable showing no obstruction but did show a decreased ejection fraction of 21%. She has been tolerating p.o. food and fluid today. She has no other concerns. She has had a large loose stool today Exam Narrative: Exam Narrative: She is alert and appears in no distress mood and affect are bright. Respirations are unlabored. Cardiovascular: S1, S2, regular rate and rhythm. Abdomen is soft. No mass or tenderness. Bowel sounds are present. No significant extremity edema. Const: Vital Signs, click to edit/add: Vital Signs - 24 hr 06/26/23 15:00 06/26/23 23:00 06/27/23 03:00 Temperature 97.1 F L 97.5 F L 97.2 F L Pulse Rate [Right Pulse Oximeter] 81 61 63 Respiratory Rate 18 18 16 Blood Pressure [Ri ght Arm] 116/69 125/73 131/77 Pulse Oximetry 90 93 92 Oxygen Delivery Me thod Room Air Room Air Room Air 06/27/23 08:23 06/27/23 11:23 Temperature 97.2 F L 98.6 F Pulse Rate [Right Pulse Oximeter] 68 74 Respiratory Rate 16 16 Blood Pressure [Ri ght Arm] 129/80 115/70 Pulse Oximetry 94 94 Oxygen Delivery Me thod Room Air Room Air Documenting provider has reviewed patient's vital signs: yes Labs Labs: Laboratory Results - last 24 hr 06/26/23 06/27/23 13:04 05:58 INR 2.15 H Sodium 137 Potassium 3.4 L Chloride 101 Carbon Dioxide 30 Anion Gap 6 L BUN 7 Creatinine 0.6 Estimated Creat Clear 43.92 Estimated GFR 97 Glucose 95 Calcium 8.5 Stool H. pylori Ag POSITIVE A
--- NOTE | 2023-06-27 14:17 | PC.SOCIAL ---
Discharge plan: Spoke with Adelina at [facility] who states they can accept pt back to [facility] tomorrow 06/28/23 at 8:00am. Pt is requesting non-emergency ambulance for transport.
[2023-06-27 15:00] VITALS: BP 113/76; PULSE 82; RESP 14; TEMP 36.2; O2SAT 95
[2023-06-27 18:47] VITALS: BP 130/71; PULSE 69; RESP 16; TEMP 36.3; O2SAT 92
[2023-06-27] MEDS: ALBUTEROL INHALER 2 PUFF IH (20:26)
[2023-06-27] MEDS: ROPINIROLE HCL 1 MG TABLET PO (20:27)
[2023-06-27] MEDS: PERPHENAZINE 4 MG PO (20:27)
--- NOTE | 2023-06-27 22:10 | PC.NURSE ---
VSS, RA. Back pain of 6-7- relief w/ scheduled tylenol and ice pack. Anxious off and on throughout evening. Regular diet- 100% dinner. 1200 cc fluids in. Voided x4. Frequent small stools- held senna. No IV. SBA, gait belt, walker- up to bathroom frequently. On phone w/ Bill most of evening. Will continue to monitor, follow POC, and keep pt and family updated. Rohini Gerber RN
[2023-06-27 23:00] VITALS: RESP 16
[2023-06-28 03:00] VITALS: BP 138/83; PULSE 78; RESP 16; TEMP 37.1; O2SAT 97
[2023-06-28] MEDS: ALBUTEROL INHALER 2 PUFF IH (03:44)
[2023-06-28] MEDS: IPRAT-ALBUT 0.5-2.5 MG/3 ML NEB 1 NEB IH (04:51)
[2023-06-28] MEDS: ACETAMINOPHEN 500 MG TABLET 1000 MG PO (05:57)
--- NOTE | 2023-06-28 06:32 | PC.NURSE ---
Shift note [id number]: Pt remains alert & oriented x 4 and uses call light to make needs known. She remains continent of bladder and uses bathroom for toileting. Pt transfers/ambulates with SBA using FWW and GB. Staff continue to encourage pt to participate in her cares as she is scheduled to discharge to SNF this morning which she is aware of. Pt has been denying nausea this shift and has had no vomiting noted or reported. She continues to have intermittent nonproductive cough due to hx of COPD. She requested to take 0730 nebulizer tx before 0500 as she refused 0130 neb. Pt requested PRN Tylenol this morning for 6/10 lower back/L hip pain with rest encouraged and repositioning performed. ?
[2023-06-28 06:59] LABS: INR 1.94 (0.91-1.10); Prothrombin Time 23.6 Seconds
[2023-06-28 07:11] LABS: Chloride* 102 mmol/L (96-114); Potassium* 3.4 mmol/L (3.6-5.1); Sodium* 134 mmol/L (135-149)
[2023-06-28 07:14] LABS: Blood Urea Nitrogen* 9 mg/dL (7-30); Carbon Dioxide* 26 mmol/L (20-32); Creatinine* 0.6 mg/dL (0.5-1.5); Est. Creatinine Clearance* 43.92; Estimated Glomerular Filt Rate 97 ml/min
[2023-06-28 07:15] LABS: Anion Gap 6 mEq/L (7-15); Calcium* 8.6 mg/dL (8.4-10.6); Glucose* 113 mg/dL (60-115)
[2023-06-28] MEDS: POTASSIUM CHLORIDE 10 MEQ CAPSULE ER 20 MEQ PO (07:52)
[2023-06-28 08:01] LABS: SARS PCR* Negative SARS-CoV-2 (Negative)
--- NOTE | 2023-06-28 09:24 | PM.DS1 ---
DS: Providers Provider Date Seen: 06/28/23 Date of admission: 06/25/23 16:16 Primary care physician: Reese Heredia MD Admitting Clinician: Monster Hernández MD Attending Physician on discharge: Monster Hernández MD Date of Discharge: 06/28/23 DS: Diagnosis Discharge Diagnosis (1) Nausea and vomiting: Status: Acute Problem details: Admitted to the hospital with intractable nausea and vomiting. The cause was uncertain. Primary abnormality identified during this evaluation was a positive H pylori stool antigen. Treatment for H pylori infection with clarithromycin and amoxicillin was initiated. Three weeks ago she had a bowel obstruction causing vomiting. But no evidence of that now. Prior to that she has had a history of vomiting in the past. The cause for that was unclear as well. Current medications are not obvious culprits for this. No obvious structural abnormality seen on CT scan of her abdomen and pelvis. She does still have a gallbladder. Ultrasound shows a gallstone. HIDA scan showed a reduced ejection fraction of 21% but otherwise no biliary obstruction. LFTs are normal. She has got no tenderness in her right upper quadrant. No history of gastroparesis. None of her medications are obviously causing nausea and vomiting. A trial of antiemetics in her hospital stay showed none of them were of obvious and consistent benefit including ondansetron, metoclopramide, prochlorperazine, olanzapine, promethazine, lorazepam. Nausea and vomiting resolved before treatment of H pylori was initiated. (2) H. pylori infection: Status: Acute Problem details: Treat with clarithromycin 500 b.i.d. plus amoxicillin 1000 b.i.d. plus omeprazole for 2 weeks. One month after completing therapy recheck with H pylori stool antigen to confirm clearance of H pylori (3) Biliary dyskinesia: Status: Acute Problem details: 06/26/2023 HIDA scan shows ejection fraction 21%. No biliary obstruction. No further evaluation or treatment unless having significant ongoing postprandial symptoms (4) Dietary counseling: Status: Acute Problem details: Patient had been on a low fiber diet after her bowel obstruction. I have recommended she be on a regular diet and possibly a high-fiber diet to deal with constipation. (5) Hypokalemia: Status: Acute Problem details: Replace and follow (6) Schizoaffective disorder: Status: Acute Problem details: Back on home perphenazine. Stable (7) COPD (chronic obstructive pulmonary disease): Status: Acute Problem details: Quiescent. (8) Multiple subsegmental pulmonary emboli without acute cor pulmonale: Status: Acute Problem details: Continue warfarin to maintain therapeutic INR. Close monitoring needed while taking clarithromycin and amoxicillin. DS: Summary Hospital Course Hospital Course: 67-year-old female admitted to the hospital with intractable nausea and vomiting. Vomiting was nonbloody. She was taking in very poor food and fluid prior to an early in her admission. She was supported with IV fluids. Multiple antiemetics were tried without obvious or sustained benefit. Multiple tests including CT of the abdomen pelvis, upper GI contrast x-ray, ultrasound, HIDA scan did not show an obvious cause for her symptoms. The HIDA scan showed a reduced ejection fraction of 21% but no biliary obstruction. Her nausea vomiting resolved without any obvious treatment. She was diagnosed with H pylori infection based on a positive H pylori antigen in her stool. Treatment with amoxicillin 1000 mg b.i.d. for 2 weeks plus clarithromycin 500 mg twice daily for 2 weeks plus omeprazole 40 mg daily for 2 weeks was initiated. Is recommended that she have a repeat H pylori stool antigen checked 1 month after finishing the treatment. She has been on warfarin because of pulmonary emboli diagnosed at her last hospitalization 3 weeks ago. Warfarin dose had to be adjusted to account for her poor p.o. intake on admission. Due to onset of antibiotic therapy close follow-up of her INR will also be needed in the next 2 weeks. Status at Discharge Functional status at discharge: uses cane/walker Overall status at discharge: patient is progressing back to baseline Time Spent with Patient Time attestation: Total time spent providing and/or coordinating discharge services: Time spent: Less than 30 minutes Exam Narrative: Exam Narrative: She is alert no distress. Mood and affect are bright. Abdomen is soft. She is eating her breakfast without difficulties. Const: Vital Signs, click to edit/add: Vital Signs - 24 hr 06/27/23 11:23 06/27/23 15:00 06/27/23 15:00 Temperature 98.6 F 97.1 F L Pulse Rate [Right Pulse Oximeter] 74 82 82 Respiratory Rate 16 14 Blood Pressure [Ri ght Arm] 115/70 113/76 Pulse Oximetry 94 95 Oxygen Delivery Me thod Room Air Room Air 06/27/23 18:47 06/27/23 23:00 06/28/23 03:00 Temperature 97.3 F L 98.8 F Pulse Rate [Right Pulse Oximeter] 69 78 Respiratory Rate 16 16 16 Blood Pressure [Ri ght Arm] 130/71 138/83 Pulse Oximetry 92 97 Oxygen Delivery Me thod Room Air Room Air Documenting provider has reviewed patient's vital signs: yes DS: Data Data Completed and Pending Labs on day of discharge: Labs from last 24 hours 06/28/23 06/28/23 07:02 06:17 INR 1.94 H Sodium 134 L Potassium 3.4 L Chloride 102 Carbon Dioxide 26 Anion Gap 6 L BUN 9 Creatinine 0.6 Estimated Creat Clear 43.92 Estimated GFR 97 Glucose 113 Calcium 8.6 SARS-CoV-2 (PCR) Negative SARS-CoV-2 Discharge Plan Discharge Disposition: [facility] Date of Admission: 06/25/23 16:16 Attending Provider on Discharge: Monster Hernández Consulting Providers: Елена Diez Primary Care Provider: Reese Heredia Condition: Stable Discharge Medications: New amoxicillin 500 mg capsule 1,000 mg PO BID Qty: 56 0RF clarithromycin 500 mg tablet 500 mg PO BID Qty: 28 0RF potassium chloride 10 mEq capsule, extended release 10 meq PO DAILY Qty: 30 0RF Continued fluoxetine 40 mg capsule 40 mg PO HS ropinirole 0.5 mg tablet 1 mg PO QHS fluticasone propion-salmeterol [Advair Diskus] 500-50 mcg/dose blister with device 1 inh INHALATION BID perphenazine 4 mg tablet 4 mg PO HS montelukast 10 mg tablet 10 mg PO HS albuterol sulfate 90 mcg/actuation HFA aerosol inhaler 2 puff INHALATION Q4H PRN (Reason: dyspnea) acetaminophen [Acetaminophen Extra Strength] 500 mg tablet 1,000 mg PO Q6H PRN calcium carbonate-vitamin D3 [Calcium 600 + D(3)] 600 mg-10 mcg (400 unit) tablet 1 tab PO DAILY cholecalciferol (vitamin D3) 50 mcg (2,000 unit) capsule 50 mcg PO DAILY warfarin 4 mg tablet 4 mg PO DAILY ipratropium-albuterol 0.5 mg-3 mg(2.5 mg base)/3 mL solution for nebulization 3 ml inhalation Q6H PRN magnesium oxide 400 mg magnesium capsule 400 mg PO DAILY melatonin 3 mg capsule 3 mg PO HS PRN Systane (PF) 0.4-0.3 % dropperette 1 drp ophthalmic (eye) Q1H PRN ondansetron 4 mg tablet,disintegrating 4 mg PO Q6H PRN guaifenesin [Chest Congestion Relief] 400 mg tablet 400 mg PO BID polyethylene glycol 3350 [Miralax] 17 gram/dose powder 17 g PO DAILY PRN Changed omeprazole 20 mg capsule,delayed release(DR/EC) 40 mg PO DAILY Qty: 60 0RF Discharge Orders: Discharge Order (Routine); Ordered 06/28/23 Ordered By: Monster Hernández Activity Level: Activity as Tolerated Discharge Diet: Regular Follow Up Appointments: [facility] [Outside] (Patient being discharged to [facility]) Reese Heredia MD [Primary Care Provider] - Forms: [employer] Info Instructions Admit to: SNF Discharge Potential: Good Length of Stay: <30 days Code Status: Full Code Rehab Potential: Good Therapy: Physical Therapy and Occupational Therapy Therapy Orders: Evaluate and Treat Next INR: Check INR in 4 days and 8 days. check basic metabolic panel in 8 days
--- NOTE | 2023-06-28 10:16 | PC.NURSE ---
Discharge to [facility] via non emergent EMS transport this AM @ 800. All belongings were sent with the patient. All discharge documentation was signed and put in the patients chart. Discharged in great condition. No IV/ transfers with SBA w/ GB and RW. Report was given to Nichelle at [facility] prior to arrival to the facility. CHARU ANDREW BSN
== END 2023-06-28 08:00 | DRG 392 ==
LOC: ED 06-23 00:19 → MEDSURG 06-23 00:41
PROVIDERS: Internal Medicine; Admitting Provider Family Medicine; Emergency Provider Internal Medicine; PCP Family Medicine; Visit Provider Family Medicine
DX: R11.2 Nausea with vomiting, unspecified (principal); A04.8 Other specified bacterial intestinal infections; K82.8 Other specified diseases of gallbladder; Z71.3 Dietary counseling and surveillance; E87.6 Hypokalemia; J44.9 Chronic obstructive pulmonary disease, unspecified; F25.9 Schizoaffective disorder, unspecified; Z86.711 Personal history of pulmonary embolism; Z79.01 Long term (current) use of anticoagulants
CPT/HCPCS: 36415; 70450; 74177; 74240; 76705; 78227; 80048; 80053; 80076; 81003; 82150; 83690; 83735; 84443; 84484; 85025; 85610; 86769; 87338; 87426; 87631; 87635; 93005; 94640; 97110; 97116; 97161; 97165; 97530; 97535; 99283; 99284; 99285; A9270; A9537; G0378; J0780; J2060; J2405; J2765; J2805; J3480; J7030; J7120; Q9967

== ENCOUNTER 2023-06-28 07:52 | Outpatient (CLI) | payer MEDICARE, SELFPAY | END 2023-06-28 07:53 | disposition home or self-care (01) | LOC: AMB 10:21 | PROVIDERS: PCP Family Medicine; Visit Provider Family Medicine | DX: Z99.3 Dependence on wheelchair (principal) | CPT/HCPCS: A0425; A0428 ==

== ENCOUNTER 2023-07-02 15:10 | Outpatient (CLI) | payer MEDICARE, SELFPAY | END 2023-07-02 15:11 | disposition home or self-care (01) | LOC: AMB 07-04 09:49 | PROVIDERS: PCP Family Medicine; Visit Provider Family Medicine | DX: R41.82 Altered mental status, unspecified (principal); R53.1 Weakness | CPT/HCPCS: A0425; A0427 ==

== ENCOUNTER 2023-07-02 15:32 | Inpatient (IN) | payer MEDICARE, SELFPAY ==
[2023-07-02 15:40] VITALS: BP 142/97; PULSE 93; RESP 32; TEMP 36.5; O2SAT 97; BMI 30.2
--- NOTE | 2023-07-02 16:05 | CRLHL7_ITS ---
For Patients: As a result of the Century Cures Act, medical imaging exams and procedure reports are released immediately into your electronic medical record. You may view this report before your referring provider. If you have questions, please contact your health care provider. Indication : Altered mental status. Technique : CT of the brain without intravenous contrast. Comparison: CT head 06/23/2023. Findings: No acute blurring of the wood-white differentiation. There is no intracranial hemorrhage. The ventricles are proportionate to the cerebral sulci. The 4th ventricle is midline. Basal cisterns appear patent. No abnormal extra-axial fluid collection identified. Mild parenchymal volume loss. There is moderate patchy periventricular hypodensity, favored to represent chronic ischemic microvascular disease. There is no intracranial mass, mass effect or midline shift identified. No depressed calvarial fracture. Completely opacified left sphenoid sinus with chronic osteitis change. Likely hemangioma right posterior parietal bone. Impression: 1. No acute intracranial process. 2. Moderate chronic ischemic microvascular disease. Please note that all CT scans at this facility use dose modulation, iterative reconstruction, and/or weight-based dosing when appropriate to reduce radiation dose to as low as reasonably achievable. Dictated by Rolando Perea MD @ 07/02/2023 5:29:17 PM (Electronically Signed)
--- NOTE | 2023-07-02 16:14 | ED.GENADULT ---
HPI - General Adult General Date Seen: 07/02/23 Chief complaint: Altered Mental Status Stated complaint: Altered mental status Time Seen by Provider: 07/02/23 15:39 Source: EMS, RN notes reviewed and old records reviewed Mode of arrival: EMS Limitations: altered mental status History of Present Illness HPI narrative: Patient is a 67-year-old woman here from [facility] for altered mentation. She does have underlying schizoaffective disorder but today is having delusions he, confusion, disoriented. She was hospitalized here last week secondary to nausea and vomiting, had multiple tests which were unremarkable was ultimately diagnosed with H pylori and started on antibiotics. Patient is unable to provide any history. She did not aware she was or why she is here. She denies pain. Related Data Home Medications Medication Instructions Recorded Confirmed acetaminophen 500 mg tablet 1,000 mg PO Q6H PRN 06/22/23 07/02/23 (Acetaminophen Extra Strength) albuterol sulfate 90 mcg/actuation 2 puff inhalation Q4H PRN dyspnea 06/22/23 07/02/23 aerosol inhaler calcium carbonate 600 mg-vitamin 1 tab PO DAILY 06/22/23 07/02/23 D3 10 mcg (400 unit) tablet (Calcium 600 + D(3)) cholecalciferol (vitamin D3) 50 50 mcg PO DAILY 06/22/23 07/02/23 mcg (2,000 unit) capsule fluoxetine 40 mg capsule 40 mg PO HS 06/22/23 07/02/23 fluticasone 500 mcg-salmeterol 50 1 inh inhalation BID 06/22/23 07/02/23 mcg/dose blistr powdr for inhalation (Advair Diskus) ipratropium 0.5 mg-albuterol 3 mg 3 ml inhalation Q6H PRN 06/22/23 07/02/23 (2.5 mg base)/3 mL nebulization soln magnesium oxide 400 mg PO DAILY 06/22/23 07/02/23 melatonin 3 mg capsule 3 mg PO HS PRN 06/22/23 07/02/23 montelukast 10 mg tablet 10 mg PO HS 06/22/23 07/02/23 perphenazine 4 mg tablet 4 mg PO HS 06/22/23 07/02/23 ropinirole 0.5 mg tablet 1 mg PO QHS 06/22/23 07/02/23 warfarin 4 mg tablet 4 mg PO DAILY 06/22/23 07/02/23 guaifenesin 400 mg tablet (Chest 400 mg PO BID 06/25/23 07/02/23 Congestion Relief) ondansetron 4 mg disintegrating 4 mg PO Q6H PRN 06/25/23 07/02/23 tablet peg 400-propylene glycol (PF) 0.4 1 drp ophthalmic (eye) Q1H PRN 06/25/23 07/02/23 %-0.3 % eye drops in a dropperette (Systane (PF)) polyethylene glycol 3350 17 17 g PO DAILY PRN 06/25/23 07/02/23 gram/dose oral powder (Miralax) Previous Rx's Medication Instructions Recorded amoxicillin 500 mg capsule 1,000 mg (2 x 500 mg) PO BID #56 06/27/23 caps clarithromycin 500 mg tablet 500 mg PO BID #28 tabs 06/27/23 omeprazole 20 mg capsule,delayed 40 mg (2 x 20 mg) PO DAILY #60 caps 06/27/23 release potassium chloride 10 mEq 10 meq PO DAILY #30 caps 06/28/23 capsule,extended release Allergies Allergy/AdvReac Type Severity Reaction Status Date / Time celecoxib [From Celebrex] Allergy Unknown Verified 06/25/23 09:39 nickel Allergy Unknown Verified 06/25/23 09:39 Sulfa (Sulfonamide Allergy Unknown Verified 06/25/23 09:39 Antibiotics) Review of Systems Status of ROS: Reports: unobtainable due to mental status [facility] Medical History Gastroenteritis ?K52.9 - Noninfective gastroenteritis and colitis, unspecified (ICD-10) Vomiting ?R11.10 - Vomiting, unspecified (ICD-10) Dietary counseling ?Z71.3 - Dietary counseling and surveillance (ICD-10) Nausea and vomiting ?R11.2 - Nausea with vomiting, unspecified (ICD-10) Stable burst fracture of unspecified lumbar vertebra, subsequent encounter for fracture with routine healing ?S32.001D - Stable burst fracture of unspecified lumbar vertebra, subsequent encounter for fracture with routine healing (ICD-10) History of malignant neoplasm of breast ?Z85.3 - Personal history of malignant neoplasm of breast (ICD-10) RLS (restless legs syndrome) ?G25.81 - Restless legs syndrome (ICD-10) Multiple subsegmental pulmonary emboli without acute cor pulmonale ?I26.94 - Multiple subsegmental pulmonary emboli without acute cor pulmonale (ICD-10) Chronic fatigue ?R53.82 - Chronic fatigue, unspecified (ICD-10) COPD (chronic obstructive pulmonary disease) ?J44.9 - Chronic obstructive pulmonary disease, unspecified (ICD-10) Cervical disc disorder ?M50.90 - Cervical disc disorder, unspecified, unspecified cervical region (ICD-10) VIBHA (obstructive sleep apnea) ?G47.33 - Obstructive sleep apnea (adult) (pediatric) (ICD-10) Mild persistent asthma ?J45.30 - Mild persistent asthma, uncomplicated (ICD-10) Schizoaffective disorder ?F25.9 - Schizoaffective disorder, unspecified (ICD-10) Major depressive disorder, single episode ?F32.9 - Major depressive disorder, single episode, unspecified (ICD-10) Small bowel obstruction ?K56.609 - Unspecified intestinal obstruction, unspecified as to partial versus complete obstruction (ICD-10) Family History Father Lung cancer Mother Stroke Social History What is your current living situation?: I presently have a place to live Problems where you live: no known problems Problems where you live details: NA In the past 12 months, utilities in danger of being shut off: no In past 12 months, lack of transportation kept you from medical appts, meetings, work, or getting things needed for daily living: no In the past 12 mos, have been you worried that your food would run out before you had money to buy more?: never true In the past 12 mos, the food you bought just didn't last and you didn't have money to buy more?: never true Highest level of school completed/degree received: Associate degree: occupational, technical, vocational program Smoking Status: Former smoker What tobacco products do you use: cigarettes Smoking quit date/years: >15 years ago Do you use any of these nicotine containing products: None Second hand tobacco smoke exposure: No How often do you have a drink containing alcohol: never AUDIT-C Alcohol total score: 0 Non-prescribed substance use: denies use Caffeine: Yes How often does anyone, including family, friends and others, physically hurt you: never How often does anyone, including family, friends and others, insult or talk down to you: never How often does anyone, including family, friends and others, threaten you with harm: never How often does anyone, including family, friends and others, scream or curse at you: never service: No Exam Narrative: Exam Narrative: Vital signs as noted above. In general, an alert, nontoxic elderly woman. Head: Normocephalic, atraumatic. Eyes: Pupils are equal reactive. Extraocular movements are full. Conjunctivae are normal. ENT: Mucous membranes are moist. Neck: Supple without lymphadenopathy. No meningeal signs. Heart: Regular rate and rhythm. No murmur or rub. Lungs: Clear bilaterally. No increased work of breathing, crackles or wheezes. Abdomen: Soft and nontender. No organomegaly. Extremities: Well perfused. No edema. No calf tenderness. Pulses intact. Neurologic: Patient was not able to tell me her last name, she identified her age as 1979 and the year as 1918. She was not oriented to place. Speech is fluent. Face is symmetric. She is moving all extremities equally, moves her lower extremities at the hip and knee without difficulty although when I specifically asked her to move her feet she seemed to have difficulty with that. Otherwise follows all commands. Does not make significant eye contact. Seems focused on her the rails of the bed, is grasping at various parts of the bed railings. Affect: Confused. Skin: Warm and dry. Well perfused. Const: Vital Signs, click to edit/add: Vital Signs - 24 hr 07/02/23 15:40 Temperature 97.7 F Pulse Rate [Pulse Oximeter] 93 Respiratory Rate 32 H Blood Pressure [Le ft Upper Arm] 142/97 H Pulse Oximetry 97 Oxygen Delivery Me thod Room Air Documenting provider has reviewed patient's vital signs: yes Course Course ED Course: The patient is sent in for delirium with a nonfocal neurologic exam, significantly off her baseline per care facility. Diagnostic considerations include infectious or metabolic process, medication reaction, intracranial hemorrhage or stroke, among others. I did do CT of the head particularly given that she is anticoagulated. By my review that showed no intracranial hemorrhage or mass effect. Final radiology read is negative for acute findings. Her white blood cell count was normal at 9.3, slight left shift with 78% neutrophils. Her INR was 1.44, subtherapeutic. Metabolic panel was notable for normal electrolytes, blood sugar of 112. Lactate was normal at 1.4. LFTs unremarkable and ammonia level was 23. CRP was minimally elevated at 1.2. UA showed 1+ leukocyte esterase, 5-10 red cells, 10-25 white blood cells. Drug screen was negative. Blood alcohol was negative. COVID influenza and RSV were negative. Venous gas shows a pH of 7.45, pCO2 of 35. Bicarb normal. Re-evaluation shows continued delirium, she is not really answering questions at this time, was mostly intent on pushing buttons on the remote for the TV. She did say that she was feeling fine when I asked her how she was. Cause for her delirium is unclear at this time, she was started on antibiotics recently, rule out medication interaction. She does have 10-25 white blood cells, consider urinary tract infection as a contributing problem. Plan will be admission to hospitalist service for observation. Vital Signs Vital signs: Initial Vital Signs Temperature 97.7 F 07/02/23 15:40 Temperature Source Temporal Artery Scan 07/02/23 15:40 Pulse Rate 93 07/02/23 15:40 Pulse Rhythm Regular 07/02/23 15:40 Respiratory Rate 32 H 07/02/23 15:40 Blood Pressure 142/97 H 07/02/23 15:40 Blood Pressure Mean 112 H 07/02/23 15:40 Blood Pressure Position Sitting 07/02/23 15:40 Pulse Oximetry 97 07/02/23 15:40 Oxygen Delivery Method Room Air 07/02/23 15:40 Vital Signs Temperature 97.7 F 07/02/23 15:40 Pulse Rate 93 07/02/23 15:40 Respiratory Rate 32 H 07/02/23 15:40 Blood Pressure 142/97 H 07/02/23 15:40 Pulse Oximetry 97 07/02/23 15:40 Oxygen Delivery Method Room Air 07/02/23 15:40 Temperature 97.8 F 07/02/23 19:20 Pulse Rate 88 07/02/23 19:20 Respiratory Rate 20 07/02/23 19:20 Blood Pressure 113/98 H 07/02/23 19:20 Pulse Oximetry 97 07/02/23 19:20 Oxygen Delivery Method Room Air 07/02/23 19:20 Medical Decision Making Lab Data Labs: Lab Results 07/02/23 07/02/23 07/02/23 Range/Units 16:34 16:34 16:34 WBC 9.27 (4.50-11.00) K/uL RBC 5.20 (4.00-5.20) m/uL Hgb 16.0 (12.0-16.0) gm/dL Hct 49.4 (33.0-51.0) % MCV 95 (80-100) fL MCH 31 (26-34) pg MCHC 32 (32-36) gm/dL RDW Coeff of Gunnar 13.9 (11.5-15.5) % Plt Count 214 (140-440) K/uL Neut % (Auto) 78.1 H (42.0-72.0) % Lymph % (Auto) 12.2 L (20-44) % [place] % (Auto) 8.1 (0.0-11.0) % Eos % (Auto) 1.1 (0.0-7.0) % Baso % (Auto) 0.2 (0.0-3.0) % Neut # (Auto) 7.20 H (1.7-7.0) K/uL Lymph # (Auto) 1.10 (0.90-2.90) K/uL [place] # (Auto) 0.80 (0.00-0.90) K/UL Eos # (Auto) 0.10 (0.00-0.50) K/uL Baso # (Auto) 0.02 (0.00-0.30) K/uL Abs Immat Gran (auto) 0.03 (0.00-0.30) K/uL Imm/Tot Granulo (auto) 0.3 % INR 1.44 H (0.91-1.10) VBG pH 7.449 H (7.32-7.43) VBG pCO2 35 L (40-50) mmHG VBG pO2 84.8 H (25-47) mmHG VBG HCO3 24 (21-28) mmol/L Sodium 135 (135-149) mmol/L Potassium 3.5 L (3.6-5.1) mmol/L Chloride 104 (96-114) mmol/L Carbon Dioxide 24 (20-32) mmol/L Anion Gap 7 (7-15) mEq/L BUN 8 (7-30) mg/dL Creatinine 0.6 (0.5-1.5) mg/dL Estimated Creat Clear 41.99 Estimated GFR 97 ml/min Glucose 112 (60-115) mg/dL Lactate 1.4 (0.5-1.9) mmol/L Calcium 9.2 (8.4-10.6) mg/dL Total Bilirubin 0.8 Cancelled (0.1-1.5) mg/dL Direct Bilirubin 0.0 Cancelled (0.0-0.5) mg/dL AST 26 (12-35) U/L ALT (4-35) U/L Alkaline Phosphatase (40-150) U/L Ammonia (13.1-30.0) umol/L C-Reactive Protein (0.5-1.0) mg/dL Total Protein (6.0-8.3) g/dL Albumin (3.3-5.0) g/dL Urine Color (Yellow) Urine Appearance (Clear) Urine pH (5.0-8.5) Ur Specific [place] (1.000-1.030) Urine Protein (Negative) Urine Glucose (UA) (Negative) Urine Ketones (Negative) Urine Blood (Negative) Urine Nitrite (Negative) Urine Bilirubin (Negative) Urine Urobilinogen (0.2-1.0) Ur Leukocyte Esterase (Negative) Urine RBC (0-2) Urine WBC (0-5) Ur Squamous Epith Cells (None-Few) Amorphous Sediment (None) Urine Bacteria (None) Urine Opiates Screen (Negative) Ur Oxycodone Screen (Negative) Urine Methadone Screen (Negative) Ur Propoxyphene Screen Ur Barbiturates Screen (Negative) U Tricyclic Antidepress (Negative) Ur Phencyclidine Scrn (Negative) Ur Amphetamines Screen (Negative) U Methamphetamines Scrn (Negative) U Benzodiazepines Scrn (Negative) Urine Cocaine Screen (Negative) U Marijuana (THC) Screen (Negative) Ur Drug Screen Comment Ethyl Alcohol (0.01-0.03) % SARS-CoV-2 (PCR) (Negative) Influenza Type A (PCR) (Negative) Influenza Type B (PCR) (Negative) RSV (PCR) (Negative) 07/02/23 07/02/23 07/02/23 Range/Units 16:34 16:34 16:34 WBC (4.50-11.00) K/uL RBC (4.00-5.20) m/uL Hgb (12.0-16.0) gm/dL Hct (33.0-51.0) % MCV (80-100) fL MCH (26-34) pg MCHC (32-36) gm/dL RDW Coeff of Gunnar (11.5-15.5) % Plt Count (140-440) K/uL Neut % (Auto) (42.0-72.0) % Lymph % (Auto) (20-44) % [place] % (Auto) (0.0-11.0) % Eos % (Auto) (0.0-7.0) % Baso % (Auto) (0.0-3.0) % Neut # (Auto) (1.7-7.0) K/uL Lymph # (Auto) (0.90-2.90) K/uL [place] # (Auto) (0.00-0.90) K/UL Eos # (Auto) (0.00-0.50) K/uL Baso # (Auto) (0.00-0.30) K/uL Abs Immat Gran (auto) (0.00-0.30) K/uL Imm/Tot Granulo (auto) % INR (0.91-1.10) VBG pH (7.32-7.43) VBG pCO2 (40-50) mmHG VBG pO2 (25-47) mmHG VBG HCO3 (21-28) mmol/L Sodium (135-149) mmol/L Potassium (3.6-5.1) mmol/L Chloride (96-114) mmol/L Carbon Dioxide (20-32) mmol/L Anion Gap (7-15) mEq/L BUN (7-30) mg/dL Creatinine (0.5-1.5) mg/dL Estimated Creat Clear Estimated GFR ml/min Glucose (60-115) mg/dL Lactate (0.5-1.9) mmol/L Calcium (8.4-10.6) mg/dL Total Bilirubin (0.1-1.5) mg/dL Direct Bilirubin (0.0-0.5) mg/dL AST Cancelled (12-35) U/L ALT 19 Cancelled (4-35) U/L Alkaline Phosphatase 103 Cancelled (40-150) U/L Ammonia 23.0 (13.1-30.0) umol/L C-Reactive Protein 1.2 H (0.5-1.0) mg/dL Total Protein 6.6 (6.0-8.3) g/dL Albumin (3.3-5.0) g/dL Urine Color (Yellow) Urine Appearance (Clear) Urine pH (5.0-8.5) Ur Specific [place] (1.000-1.030) Urine Protein (Negative) Urine Glucose (UA) (Negative) Urine Ketones (Negative) Urine Blood (Negative) Urine Nitrite (Negative) Urine Bilirubin (Negative) Urine Urobilinogen (0.2-1.0) Ur Leukocyte Esterase (Negative) Urine RBC (0-2) Urine WBC (0-5) Ur Squamous Epith Cells (None-Few) Amorphous Sediment (None) Urine Bacteria (None) Urine Opiates Screen (Negative) Ur Oxycodone Screen (Negative) Urine Methadone Screen (Negative) Ur Propoxyphene Screen Ur Barbiturates Screen (Negative) U Tricyclic Antidepress (Negative) Ur Phencyclidine Scrn (Negative) Ur Amphetamines Screen (Negative) U Methamphetamines Scrn (Negative) U Benzodiazepines Scrn (Negative) Urine Cocaine Screen (Negative) U Marijuana (THC) Screen (Negative) Ur Drug Screen Comment Ethyl Alcohol (0.01-0.03) % SARS-CoV-2 (PCR) (Negative) Influenza Type A (PCR) (Negative) Influenza Type B (PCR) (Negative) RSV (PCR) (Negative) 07/02/23 07/02/23 07/02/23 Range/Units 16:34 16:34 17:45 WBC (4.50-11.00) K/uL RBC (4.00-5.20) m/uL Hgb (12.0-16.0) gm/dL Hct (33.0-51.0) % MCV (80-100) fL MCH (26-34) pg MCHC (32-36) gm/dL RDW Coeff of Gunnar (11.5-15.5) % Plt Count (140-440) K/uL Neut % (Auto) (42.0-72.0) % Lymph % (Auto) (20-44) % [place] % (Auto) (0.0-11.0) % Eos % (Auto) (0.0-7.0) % Baso % (Auto) (0.0-3.0) % Neut # (Auto) (1.7-7.0) K/uL Lymph # (Auto) (0.90-2.90) K/uL [place] # (Auto) (0.00-0.90) K/UL Eos # (Auto) (0.00-0.50) K/uL Baso # (Auto) (0.00-0.30) K/uL Abs Immat Gran (auto) (0.00-0.30) K/uL Imm/Tot Granulo (auto) % INR (0.91-1.10) VBG pH (7.32-7.43) VBG pCO2 (40-50) mmHG VBG pO2 (25-47) mmHG VBG HCO3 (21-28) mmol/L Sodium (135-149) mmol/L Potassium (3.6-5.1) mmol/L Chloride (96-114) mmol/L Carbon Dioxide (20-32) mmol/L Anion Gap (7-15) mEq/L BUN (7-30) mg/dL Creatinine (0.5-1.5) mg/dL Estimated Creat Clear Estimated GFR ml/min Glucose (60-115) mg/dL Lactate (0.5-1.9) mmol/L Calcium (8.4-10.6) mg/dL Total Bilirubin (0.1-1.5) mg/dL Direct Bilirubin (0.0-0.5) mg/dL AST (12-35) U/L ALT (4-35) U/L Alkaline Phosphatase (40-150) U/L Ammonia (13.1-30.0) umol/L C-Reactive Protein (0.5-1.0) mg/dL Total Protein Cancelled (6.0-8.3) g/dL Albumin 4.0 Cancelled (3.3-5.0) g/dL Urine Color Yellow (Yellow) Urine Appearance Clear (Clear) Urine pH 7.5 (5.0-8.5) Ur Specific [place] 1.025 (1.000-1.030) Urine Protein Negative (Negative) Urine Glucose (UA) Negative (Negative) Urine Ketones Trace A (Negative) Urine Blood Trace-lysed A (Negative) Urine Nitrite Negative (Negative) Urine Bilirubin Negative (Negative) Urine Urobilinogen 0.2 (0.2-1.0) Ur Leukocyte Esterase 1+ A (Negative) Urine RBC 5-10 A (0-2) Urine WBC 10-25 A (0-5) Ur Squamous Epith Cells Few (None-Few) Amorphous Sediment Few A (None) Urine Bacteria Few A (None) Urine Opiates Screen Negative (Negative) Ur Oxycodone Screen Negative (Negative) Urine Methadone Screen Negative (Negative) Ur Propoxyphene Screen Not Reportable Ur Barbiturates Screen Negative (Negative) U Tricyclic Antidepress Negative (Negative) Ur Phencyclidine Scrn Negative (Negative) Ur Amphetamines Screen Negative (Negative) U Methamphetamines Scrn Negative (Negative) U Benzodiazepines Scrn Negative (Negative) Urine Cocaine Screen Negative (Negative) U Marijuana (THC) Screen Negative (Negative) Ur Drug Screen Comment See Note Ethyl Alcohol < 0.01 L (0.01-0.03) % SARS-CoV-2 (PCR) Negative SARS-CoV-2 (Negative) Influenza Type A (PCR) Negative PCR FLU A (Negative) Influenza Type B (PCR) Negative PCR FLU B (Negative) RSV (PCR) Negative PCR RSV (Negative) Discharge Plan Discharge Patient Disposition: Admitted As Observation
[2023-07-02 16:52] LABS: HCO3 VBG 24 mmol/L (21-28); Lactate Sepsis w/Reflex* 1.4 mmol/L (0.5-1.9); PCO2 VBG 35 mmHG (40-50); PO2 VBG 84.8 mmHG (25-47); pH VBG 7.449 (7.32-7.43)
[2023-07-02 16:58] LABS: Basophils Absolute Auto 0.02 K/uL (0.00-0.30); Basophils Percent Auto 0.2 % (0.0-3.0); Eosinophils Percent Auto 1.1 % (0.0-7.0); Hematocrit 49.4 % (33.0-51.0); Immature Granulocytes Abs Auto 0.03 K/uL (0.00-0.30); Immature Granulocytes Pct Auto 0.3 %; Lymphocytes Percent Auto 12.2 % (20-44); Mean Corpuscular HGB Conc 32 gm/dL (32-36); Mean Corpuscular Hemoglobin 31 pg (26-34); Mean Corpuscular Volume 95 fL (80-100); Monocytes Percent Auto 8.1 % (0.0-11.0); Neutrophils Percent Auto 78.1 % (42.0-72.0); Platelet Count* 214 K/uL (140-440); RDW Coefficient of Variation % 13.9 % (11.5-15.5); White Blood Count* 9.27 K/uL (4.50-11.00)
[2023-07-02 17:10] LABS: Chloride* 104 mmol/L (96-114)
[2023-07-02 17:11] LABS: Potassium* 3.5 mmol/L (3.6-5.1); Sodium* 135 mmol/L (135-149)
[2023-07-02 17:12] LABS: INR 1.44 (0.91-1.10); Prothrombin Time 18.5 Seconds
[2023-07-02 17:13] LABS: Alkaline Phosphatase* 103 U/L (40-150); Anion Gap 7 mEq/L (7-15); Aspartate Amino Transferase* 26 U/L (12-35); Bilirubin Total* 0.8 mg/dL (0.1-1.5); Blood Urea Nitrogen* 8 mg/dL (7-30); Carbon Dioxide* 24 mmol/L (20-32); Creatinine* 0.6 mg/dL (0.5-1.5); Est. Creatinine Clearance* 41.99; Estimated Glomerular Filt Rate 97 ml/min; Total Protein* 6.6 g/dL (6.0-8.3)
[2023-07-02 17:14] LABS: Alanine Aminotransferase* 19 U/L (4-35); Calcium* 9.2 mg/dL (8.4-10.6); Glucose* 112 mg/dL (60-115)
[2023-07-02 17:16] LABS: C Reactive Protein* 1.2 mg/dL (0.5-1.0); Ethanol* < 0.01 % (0.01-0.03); Slide Review Reflex No
[2023-07-02 18:00] LABS: Appearance Urine Clear (Clear); Bilirubin Urine Negative (Negative); Blood Urine Trace-lysed (Negative); Color Urine Yellow (Yellow); Glucose Urine Negative (Negative); Ketones Urine Trace (Negative); Leukocyte Esterase Urine 1+ (Negative); Nitrite Urine Negative (Negative); Protein Urine Negative (Negative); Specific Gravity Urine 1.025 (1.000-1.030); Urobilinogen Urine 0.2 (0.2-1.0); pH Urine 7.5 (5.0-8.5)
[2023-07-02 18:02] LABS: Amphetamine Screen Urine Negative (Negative); Barbiturate Screen Urine Negative (Negative); Benzodiazepines Screen Urine Negative (Negative); Cannabinoid Screen Urine Negative (Negative); Cocaine Screen Urine Negative (Negative); Methadone Screen Urine Negative (Negative); Methamphetamines Screen Urine Negative (Negative); Opiate Screen Urine Negative (Negative); Oxycodone Screen Urine Negative (Negative); Phencyclidine Screen Urine Negative (Negative); Tricyclic Antidepressant Urine Negative (Negative)
[2023-07-02 18:26] LABS: Squamous Epithelial Cell Urine Few (None-Few)
[2023-07-02 18:27] LABS: Amorphous Sediment Urine Few; Bacteria Urine Few
[2023-07-02 18:27] LABS: PCR FLU A Negative PCR FLU A (Negative); PCR FLU B Negative PCR FLU B (Negative); PCR RSV Negative PCR RSV (Negative)
[2023-07-02 18:29] LABS: SARS PCR* Negative SARS-CoV-2 (Negative)
[2023-07-02 19:20] VITALS: BP 113/98; PULSE 88; RESP 20; TEMP 36.6; O2SAT 97; BMI 28.2
--- NOTE | 2023-07-02 19:22 | PM.IMHP1 ---
Hospitalist- H&P: HPI History of Present Illness Date Seen: 07/02/23 Chief complaint: Altered mental status Narrative: Shira Eid is a 67 year old woman presents to the emergency department at the behest of the [facility] staff where she resides. Patient has had altered mental status with confusion, disorientation even delusions that have been gradually evolving over the last few days. According to the staff at [facility], patient has been more agitated today. This is very unusual for the patient. Hospitalized from 25 June through 28 June with nausea and vomiting. Multiple studies undertaken without clear etiology aside from Helicobacter pylori antigen positive stools for which she was started on therapy including amoxicillin 1000 mg p.o. b.i.d., clarithromycin 500 mg p.o. b.i.d., and increased doses of omeprazole from 20 mg p.o. q.d. to 40 mg p.o. q.d.. She has been on these medications for the past week as prescribed. Is ordinarily on fluoxetine 40 mg once daily. Also has an order for ondansetron 4 mg Q 6 hours as needed for nausea and vomiting. Fevers, rigors, or diaphoresis. No cough or dyspnea. No further nausea or vomiting. Denies dyspepsia. Denies diarrhea or constipation. Denies dysuria, urgency, frequency, hematuria. No recent trauma or injury. No chest heaviness, pressure, tightness, or pain. No syncope or near syncope. Review of Systems Status of ROS: Reports: 10 or more systems reviewed and unremarkable except as noted in History and below Narrative: Patient's main concern is that she is hungry. Initially slow to respond to questions but over time she is able to engage in conversation as long as I as simple questions. Not able to spontaneously tell me what she would like to eat or drink, but able to acknowledge that she would like to have chicken noodle soup with crackers. She does not want toast. [facility] Medical History Gastroenteritis ?K52.9 - Noninfective gastroenteritis and colitis, unspecified (ICD-10) Vomiting ?R11.10 - Vomiting, unspecified (ICD-10) Dietary counseling ?Z71.3 - Dietary counseling and surveillance (ICD-10) Nausea and vomiting ?R11.2 - Nausea with vomiting, unspecified (ICD-10) Stable burst fracture of unspecified lumbar vertebra, subsequent encounter for fracture with routine healing ?S32.001D - Stable burst fracture of unspecified lumbar vertebra, subsequent encounter for fracture with routine healing (ICD-10) History of malignant neoplasm of breast ?Z85.3 - Personal history of malignant neoplasm of breast (ICD-10) RLS (restless legs syndrome) ?G25.81 - Restless legs syndrome (ICD-10) Multiple subsegmental pulmonary emboli without acute cor pulmonale ?I26.94 - Multiple subsegmental pulmonary emboli without acute cor pulmonale (ICD-10) Chronic fatigue ?R53.82 - Chronic fatigue, unspecified (ICD-10) COPD (chronic obstructive pulmonary disease) ?J44.9 - Chronic obstructive pulmonary disease, unspecified (ICD-10) Cervical disc disorder ?M50.90 - Cervical disc disorder, unspecified, unspecified cervical region (ICD-10) VIBHA (obstructive sleep apnea) ?G47.33 - Obstructive sleep apnea (adult) (pediatric) (ICD-10) Mild persistent asthma ?J45.30 - Mild persistent asthma, uncomplicated (ICD-10) Schizoaffective disorder ?F25.9 - Schizoaffective disorder, unspecified (ICD-10) Major depressive disorder, single episode ?F32.9 - Major depressive disorder, single episode, unspecified (ICD-10) Small bowel obstruction ?K56.609 - Unspecified intestinal obstruction, unspecified as to partial versus complete obstruction (ICD-10) Family History Father Lung cancer Mother Stroke Social History What is your current living situation?: I presently have a place to live Problems where you live: no known problems Problems where you live details: NA In the past 12 months, utilities in danger of being shut off: no In past 12 months, lack of transportation kept you from medical appts, meetings, work, or getting things needed for daily living: no In the past 12 mos, have been you worried that your food would run out before you had money to buy more?: never true In the past 12 mos, the food you bought just didn't last and you didn't have money to buy more?: never true Highest level of school completed/degree received: Associate degree: occupational, technical, vocational program Smoking Status: Former smoker What tobacco products do you use: cigarettes Smoking quit date/years: >15 years ago Do you use any of these nicotine containing products: None Second hand tobacco smoke exposure: No How often do you have a drink containing alcohol: never AUDIT-C Alcohol total score: 0 Non-prescribed substance use: denies use Caffeine: Yes How often does anyone, including family, friends and others, physically hurt you: never How often does anyone, including family, friends and others, insult or talk down to you: never How often does anyone, including family, friends and others, threaten you with harm: never How often does anyone, including family, friends and others, scream or curse at you: never service: No Meds Home Medications and Allergies Home Medications Medication Instructions Recorded Confirmed Type acetaminophen 500 mg tablet 1,000 mg PO Q6H PRN 06/22/23 07/02/23 History (Acetaminophen Extra Strength) albuterol sulfate 90 mcg/actuation 2 puff inhalation Q4H PRN dyspnea 06/22/23 07/02/23 History aerosol inhaler calcium carbonate 600 mg-vitamin 1 tab PO DAILY 06/22/23 07/02/23 History D3 10 mcg (400 unit) tablet (Calcium 600 + D(3)) cholecalciferol (vitamin D3) 50 50 mcg PO DAILY 06/22/23 07/02/23 History mcg (2,000 unit) capsule fluoxetine 40 mg capsule 40 mg PO HS 06/22/23 07/02/23 History fluticasone 500 mcg-salmeterol 50 1 inh inhalation BID 06/22/23 07/02/23 History mcg/dose blistr powdr for inhalation (Advair Diskus) ipratropium 0.5 mg-albuterol 3 mg 3 ml inhalation Q6H PRN 06/22/23 07/02/23 History (2.5 mg base)/3 mL nebulization soln magnesium oxide 400 mg PO DAILY 06/22/23 07/02/23 History melatonin 3 mg capsule 3 mg PO HS PRN 06/22/23 07/02/23 History montelukast 10 mg tablet 10 mg PO HS 06/22/23 07/02/23 History perphenazine 4 mg tablet 4 mg PO HS 06/22/23 07/02/23 History ropinirole 0.5 mg tablet 1 mg PO QHS 06/22/23 07/02/23 History warfarin 4 mg tablet 4 mg PO DAILY 06/22/23 07/02/23 History guaifenesin 400 mg tablet (Chest 400 mg PO BID 06/25/23 07/02/23 History Congestion Relief) ondansetron 4 mg disintegrating 4 mg PO Q6H PRN 06/25/23 07/02/23 History tablet peg 400-propylene glycol (PF) 0.4 1 drp ophthalmic (eye) Q1H PRN 06/25/23 07/02/23 History %-0.3 % eye drops in a dropperette (Systane (PF)) polyethylene glycol 3350 17 17 g PO DAILY PRN 06/25/23 07/02/23 History gram/dose oral powder (Miralax) Allergies Allergy/AdvReac Type Severity Reaction Status Date / Time celecoxib [From Celebrex] Allergy Unknown Verified 06/25/23 09:39 nickel Allergy Unknown Verified 06/25/23 09:39 Sulfa (Sulfonamide Allergy Unknown Verified 06/25/23 09:39 Antibiotics) Exam Narrative: Exam Narrative: I 1st examined the patient the emergency department. Secondly examine the patient in her hospital room. Initially she is playing with the remote control device for the television in the emergency department room where she is in. All of her attention is focused on that. She appears somewhat restless and that she does not sit still. Has resting tremor. Similarly restless when I examine her in her hospital room. Nevertheless she is not agitated when I examine her. Flat affect. Seemingly patient and cooperative. Oriented to self only. Not oriented to place, time, or situation. External auditory canals and tympanic membranes are normal. Midline nasal septum. Dentition in fair repair. Dry buccal mucosa. Flushed face. Pupils 3 mm and react to light and accommodation. No obvious ocular clonus. Neck is supple. Midline trachea. No head and neck lymphadenopathy. No JVD or hepatojugular reflux. Lungs are clear to auscultation without wheezing, rhonchi, or rales. Heart tones with regular rhythm, normal S1-S2, without murmur, gallop, or rub. Abdomen with active bowel sounds, soft, nontender. Extremities without edema. Moves all 4 extremities. Muscle rigidity of upper and lower extremities. Increased hyper reflexia in upper and lower extremities. Skin is intact without petechiae, rashes, cyanosis. Const: Vital Signs, click to edit/add: Vital Signs - 24 hr 07/02/23 15:40 Temperature 97.7 F Pulse Rate [Pulse Oximeter] 93 Respiratory Rate 32 H Blood Pressure [Le ft Upper Arm] 142/97 H Pulse Oximetry 97 Oxygen Delivery Me thod Room Air Hospitalist - H&P: Result Labs Labs: Short CBC 07/02/23 Range/Units 16:34 WBC 9.27 (4.50-11.00) K/uL Hgb 16.0 (12.0-16.0) gm/dL Hct 49.4 (33.0-51.0) % Plt Count 214 (140-440) K/uL BMP 07/02/23 16:34 Sodium 135 Potassium 3.5 L Chloride 104 Carbon Dioxide 24 BUN 8 Creatinine 0.6 Glucose 112 Calcium 9.2 Liver Function 07/02/23 07/02/23 07/02/23 Range/Units 16:34 16:34 16:34 Total Bilirubin 0.8 Cancelled (0.1-1.5) mg/dL Direct Bilirubin 0.0 Cancelled (0.0-0.5) mg/dL AST 26 (12-35) U/L ALT (4-35) U/L Alkaline Phosphatase (40-150) U/L Albumin (3.3-5.0) g/dL 07/02/23 07/02/23 07/02/23 Range/Units 16:34 16:34 16:34 Total Bilirubin (0.1-1.5) mg/dL Direct Bilirubin (0.0-0.5) mg/dL AST Cancelled (12-35) U/L ALT 19 Cancelled (4-35) U/L Alkaline Phosphatase 103 Cancelled (40-150) U/L Albumin 4.0 (3.3-5.0) g/dL 07/02/23 Range/Units 16:34 Total Bilirubin (0.1-1.5) mg/dL Direct Bilirubin (0.0-0.5) mg/dL AST (12-35) U/L ALT (4-35) U/L Alkaline Phosphatase (40-150) U/L Albumin Cancelled (3.3-5.0) g/dL Urine 07/02/23 Range/Units 17:45 Urine Color Yellow (Yellow) Urine Appearance Clear (Clear) Urine pH 7.5 (5.0-8.5) Ur Specific [place] 1.025 (1.000-1.030) Urine Protein Negative (Negative) Urine Glucose (UA) Negative (Negative) Imaging CT scan - head: Attestation: I have reviewed the pertinent imaging results. Radiologist's impression: No acute changes. Moderate chronic ischemic microvascular disease noted. Assessment and Plan Assessment and plan (1) Altered mental status: Problem comment: - likely due to serotonin syndrome. Status: Acute (2) Serotonin syndrome: Problem comment: - likely due to chronic fluoxetine use with recently added clarithromycin and as needed ondansetron. - stop the fluoxetine, clarithromycin, and ondansetron. - monitor closely. Will focus on supportive treatment and sedation if needed. If sedation is needed, will attempt use of lorazepam 1-2 mg IV for severe agitation not amenable to nonpharmacologic intervention efforts. - may need to consider the possibility of the antidote cyproheptadine if not responsive to supportive treatment and sedation as needed. - off times these can resolve within 24 hours, however in her case with the use of the fluoxetine it may take longer. Status: Acute (3) H. pylori infection: Problem comment: - treatment initiated on 06/28/2023 with clarithromycin 500 b.i.d. plus amoxicillin 1000 b.i.d. plus omeprazole for 2 weeks. Initial plan was for 1 month after completing therapy to recheck H pylori stool antigen to confirm clearance of H pylori. - at this juncture should she demonstrate need for ongoing treatment will need to consider alternative regimen that does not contain macrolide. Status: Acute (4) Schizoaffective disorder: Problem comment: - continue with use of perphenazine but stop the fluoxetine. Status: Acute (5) Multiple subsegmental pulmonary emboli without acute cor pulmonale: Problem comment: - Continue warfarin to maintain therapeutic INR. Status: Acute Plan 1. Will need to continue to work with the patient's family or power of state attorney for health. 2. Continue with other supportive efforts. 3. Consider Psychiatry telehealth consultation. 4. Will place on telemetry and check an electrocardiogram to assess for possible QT prolongation. Should she be too agitated to allow continuous monitoring on telemetry then will need to check electrocardiogram at least daily.
[2023-07-02 23:00] VITALS: BP 153/91; PULSE 84; RESP 18; TEMP 36.1; O2SAT 94
[2023-07-03] VITALS (7 sets, daily range): BP systolic 90–162; BP diastolic 65–102; PULSE 64–94; RESP 16–18; TEMP 36–37; O2SAT 94–97
--- NOTE | 2023-07-03 07:41 | PC.NURSE ---
23-07: pt asleep this shift. Incont, wet brief x 2. responds to voice. One word responses. Says ?ow? when BP cuff inflates.
[2023-07-03] MEDS: OMEPRAZOLE 20 MG CAPSULE DR 40 MG PO (09:12)
[2023-07-03] MEDS: MAGNESIUM OXIDE 400 MG TABLET PO (09:12)
[2023-07-03] MEDS: POTASSIUM CHLORIDE 10 MEQ CAPSULE ER PO (09:12)
[2023-07-03] MEDS: guaiFENesin 100 MG/ML CUP 400 MG PO ×2 (09:12→20:54)
--- NOTE | 2023-07-03 14:55 | PC.SOCIAL ---
Discharge planning: drying can worker reached out to [facility] about pt's bed status. [facility] is holding her bed right now. drying can worker relayed this message to pt. drying can worker also spoke with Hospitalist about pt and possible discharge date. At this time, would be the earliest discharge day for pt. drying can worker received a call from Dasia at [facility] stating that pt's friend, Festus, wanted an update on how pt was doing. drying can worker called Festus back and told him that pt would be in the hospital until at the earliest for discharge. Festus had medication questions regarding pt and this social services aide asked the Hospitalist to give Festus a call. The Hospitalist will call him today. Social work to follow-up as needed.
--- NOTE | 2023-07-03 15:28 | P.IMPN_ITS ---
Progress Note: A&P Assessment and plan (1) Altered mental status: Problem details: - likely due to serotonin syndrome. Status: Acute (2) Serotonin syndrome: Problem details: - likely due to chronic fluoxetine use with recently added clarithromycin and as needed ondansetron. - stop the fluoxetine, clarithromycin, and ondansetron. - monitor closely. Will focus on supportive treatment and sedation if needed. If sedation is needed, will attempt use of lorazepam 1-2 mg IV for severe agitation not amenable to nonpharmacologic intervention efforts. - may need to consider the possibility of the antidote cyproheptadine (Periactin) if not responsive to supportive treatment and sedation as needed. -Pharm to order Periactin for 07/04 if needed - off times these can resolve within 24 hours, however in her case with the use of the fluoxetine it may take longer. Status: Acute (3) H. pylori infection: Problem details: - treatment initiated on 06/28/2023 with clarithromycin 500 b.i.d. plus amoxicillin 1000 b.i.d. plus omeprazole for 2 weeks. Initial plan was for 1 month after completing therapy to recheck H pylori stool antigen to confirm clearance of H pylori. - at this juncture should she demonstrate need for ongoing treatment will need to consider alternative regimen that does not contain macrolide. Status: Acute (4) Schizoaffective disorder: Problem details: - continue with use of perphenazine but stop the fluoxetine. Status: Acute (5) Multiple subsegmental pulmonary emboli without acute cor pulmonale: Problem details: - Continue warfarin to maintain therapeutic INR. Status: Acute Subjective Date Seen: 07/03/23 Interval history: Daily Progress Note - Hospital Medicine Day #: 1 CC: AMS, hallucinations, tremors - serotonin syndrome OVERNIGHT UPDATES FROM STAFF & MED, LAB, IMAGING UPDATES continues to have erratic behavior; taking off monitoring leads, sitting up/laying down, standing up. She has pulled her clothes off. She thinks she has cancer, she thinks her father has done something to place her here. She states she is from [facility]. RN note: : pt asleep this shift. Incont, wet brief x 2. responds to voice. One word responses. Says ?ow? when BP cuff inflates. CBC reviewed from admission INR 1.44 PH 7.45 Mild hypokalemia CRP 1.2 Objective: speech is normal but she is not rooted in reality Vitals: see above Lungs: Clear. Cardiac: S1S2. Disposition/Potential discharge - Likely to return to previous living situation. Today I spent 50minutes seeing the patient, reviewing Expanse and EPIC notes/diagnostics, discussing the care plan with our care time that includes social work, PT/OT, pharmacy, RT, [place] [facility] and documenting my impressions and plan in the medical record. Exam Const: Vital Signs, click to edit/add: Vital Signs - 24 hr 07/02/23 15:40 07/02/23 19:20 07/02/23 19:20 Temperature 97.7 F 97.8 F Pulse Rate Pulse Rate [Pulse Oximeter] 93 88 Respiratory Rate 32 H 20 20 Blood Pressure [Le ft Arm] Blood Pressure [Le ft Upper Arm] 142/97 H Blood Pressure [Ri ght Arm] 113/98 H Pulse Oximetry 97 97 97 Oxygen Delivery Me thod Room Air Room Air Room Air 07/02/23 23:00 07/02/23 23:00 07/02/23 23:00 Temperature 96.9 F L Pulse Rate Pulse Rate [Pulse Oximeter] 84 Respiratory Rate 18 18 18 Blood Pressure [Le ft Arm] 153/91 H Blood Pressure [Le ft Upper Arm] Blood Pressure [Ri ght Arm] Pulse Oximetry 94 94 Oxygen Delivery Me thod Room Air Room Air 07/03/23 03:55 07/03/23 07:55 07/03/23 07:55 Temperature 96.8 F L 97.1 F L Pulse Rate Pulse Rate [Pulse Oximeter] 78 82 Respiratory Rate 18 16 Blood Pressure [Le ft Arm] 119/65 90/67 Blood Pressure [Le ft Upper Arm] Blood Pressure [Ri ght Arm] Pulse Oximetry 94 96 96 Oxygen Delivery Me thod Room Air Room Air Room Air 07/03/23 08:33 07/03/23 11:35 Temperature 97.2 F L Pulse Rate 73 Pulse Rate [Pulse Oximeter] 91 Respiratory Rate 18 Blood Pressure [Le ft Arm] 128/92 H Blood Pressure [Le ft Upper Arm] Blood Pressure [Ri ght Arm] Pulse Oximetry 96 Oxygen Delivery Me thod Room Air Labs Labs: Laboratory Results - last 24 hr 07/02/23 07/02/23 07/02/23 16:34 16:34 16:34 WBC 9.27 RBC 5.20 Hgb 16.0 Hct 49.4 MCV 95 MCH 31 MCHC 32 RDW Coeff of Gunnar 13.9 Plt Count 214 Neut % (Auto) 78.1 H Lymph % (Auto) 12.2 L [place] % (Auto) 8.1 Eos % (Auto) 1.1 Baso % (Auto) 0.2 Neut # (Auto) 7.20 H Lymph # (Auto) 1.10 [place] # (Auto) 0.80 Eos # (Auto) 0.10 Baso # (Auto) 0.02 Abs Immat Gran (auto) 0.03 Imm/Tot Granulo (auto) 0.3 INR 1.44 H VBG pH 7.449 H VBG pCO2 35 L VBG pO2 84.8 H VBG HCO3 24 Sodium 135 Potassium 3.5 L Chloride 104 Carbon Dioxide 24 Anion Gap 7 BUN 8 Creatinine 0.6 Estimated Creat Clear 41.99 Estimated GFR 97 Glucose 112 Lactate 1.4 Calcium 9.2 Total Bilirubin 0.8 Cancelled Direct Bilirubin 0.0 Cancelled AST 26 ALT Alkaline Phosphatase Ammonia C-Reactive Protein Total Protein Albumin Urine Color Urine Appearance Urine pH Ur Specific [place] Urine Protein Urine Glucose (UA) Urine Ketones Urine Blood Urine Nitrite Urine Bilirubin Urine Urobilinogen Ur Leukocyte Esterase Urine RBC Urine WBC Ur Squamous Epith Cells Amorphous Sediment Urine Bacteria Urine Opiates Screen Ur Oxycodone Screen Urine Methadone Screen Ur Propoxyphene Screen Ur Barbiturates Screen U Tricyclic Antidepress Ur Phencyclidine Scrn Ur Amphetamines Screen U Methamphetamines Scrn U Benzodiazepines Scrn Urine Cocaine Screen U Marijuana (THC) Screen Ur Drug Screen Comment Ethyl Alcohol SARS-CoV-2 (PCR) Influenza Type A (PCR) Influenza Type B (PCR) RSV (PCR) 07/02/23 07/02/23 07/02/23 16:34 16:34 16:34 WBC RBC Hgb Hct MCV MCH MCHC RDW Coeff of Gunnar Plt Count Neut % (Auto) Lymph % (Auto) [place] % (Auto) Eos % (Auto) Baso % (Auto) Neut # (Auto) Lymph # (Auto) [place] # (Auto) Eos # (Auto) Baso # (Auto) Abs Immat Gran (auto) Imm/Tot Granulo (auto) INR VBG pH VBG pCO2 VBG pO2 VBG HCO3 Sodium Potassium Chloride Carbon Dioxide Anion Gap BUN Creatinine Estimated Creat Clear Estimated GFR Glucose Lactate Calcium Total Bilirubin Direct Bilirubin AST Cancelled ALT 19 Cancelled Alkaline Phosphatase 103 Cancelled Ammonia 23.0 C-Reactive Protein 1.2 H Total Protein 6.6 Albumin Urine Color Urine Appearance Urine pH Ur Specific [place] Urine Protein Urine Glucose (UA) Urine Ketones Urine Blood Urine Nitrite Urine Bilirubin Urine Urobilinogen Ur Leukocyte Esterase Urine RBC Urine WBC Ur Squamous Epith Cells Amorphous Sediment Urine Bacteria Urine Opiates Screen Ur Oxycodone Screen Urine Methadone Screen Ur Propoxyphene Screen Ur Barbiturates Screen U Tricyclic Antidepress Ur Phencyclidine Scrn Ur Amphetamines Screen U Methamphetamines Scrn U Benzodiazepines Scrn Urine Cocaine Screen U Marijuana (THC) Screen Ur Drug Screen Comment Ethyl Alcohol SARS-CoV-2 (PCR) Influenza Type A (PCR) Influenza Type B (PCR) RSV (PCR) 07/02/23 07/02/23 07/02/23 16:34 16:34 17:45 WBC RBC Hgb Hct MCV MCH MCHC RDW Coeff of [place]ar Plt Count Neut % (Auto) Lymph % (Auto) [place] % (Auto) Eos % (Auto) Baso % (Auto) Neut # (Auto) Lymph # (Auto) [place] # (Auto) Eos # (Auto) Baso # (Auto) Abs Immat Gran (auto) Imm/Tot Granulo (auto) INR VBG pH VBG pCO2 VBG pO2 VBG HCO3 Sodium Potassium Chloride Carbon Dioxide Anion Gap BUN Creatinine Estimated Creat Clear Estimated GFR Glucose Lactate Calcium Total Bilirubin Direct Bilirubin AST ALT Alkaline Phosphatase Ammonia C-Reactive Protein Total Protein Cancelled Albumin 4.0 Cancelled Urine Color Yellow Urine Appearance Clear Urine pH 7.5 Ur Specific [place] 1.025 Urine Protein Negative Urine Glucose (UA) Negative Urine Ketones Trace A Urine Blood Trace-lysed A Urine Nitrite Negative Urine Bilirubin Negative Urine Urobilinogen 0.2 Ur Leukocyte Esterase 1+ A Urine RBC 5-10 A Urine WBC 10-25 A Ur Squamous Epith Cells Few Amorphous Sediment Few A Urine Bacteria Few A Urine Opiates Screen Negative Ur Oxycodone Screen Negative Urine Methadone Screen Negative Ur Propoxyphene Screen Not Reportable Ur Barbiturates Screen Negative U Tricyclic Antidepress Negative Ur Phencyclidine Scrn Negative Ur Amphetamines Screen Negative U Methamphetamines Scrn Negative U Benzodiazepines Scrn Negative Urine Cocaine Screen Negative U Marijuana (THC) Screen Negative Ur Drug Screen Comment See Note Ethyl Alcohol < 0.01 L SARS-CoV-2 (PCR) Negative SARS-CoV-2 Influenza Type A (PCR) Negative PCR FLU A Influenza Type B (PCR) Negative PCR FLU B RSV (PCR) Negative PCR RSV
[2023-07-03 17:41] LABS: INR 1.45 (0.91-1.10); Prothrombin Time 18.6 Seconds
[2023-07-03] MEDS: WARFARIN 5 MG TABLET PO (19:34)
[2023-07-03] MEDS: LORazepam 2 MG/ML inj IVP (20:45)
[2023-07-03] MEDS: MONTELUKAST 10 MG TABLET PO (20:47)
[2023-07-03] MEDS: ROPINIROLE HCL 1 MG TABLET PO (20:47)
[2023-07-04] VITALS (8 sets, daily range): BP systolic 119–146; BP diastolic 72–86; PULSE 66–95; RESP 16–18; TEMP 36.3–37.6; O2SAT 91–98
--- NOTE | 2023-07-04 05:01 | PC.NURSE ---
Shift note: Pt continue to be confuse with high energy, tearing papers and made several attempt to self transfer. Removed her brief. Ativan 0.5mg was given at 2200. Pt had 1 large BM. Went to bed at 2230 and has been sleeping very well. Vitally stable.
[2023-07-04 07:12] LABS: Hemoglobin* 12.4 gm/dL (12.0-16.0); Mean Corpuscular HGB Conc 33 gm/dL (32-36); Mean Corpuscular Hemoglobin 32 pg (26-34); Mean Corpuscular Volume 96 fL (80-100); Platelet Count* 290 K/uL (140-440); Red Blood Count 3.94 m/uL (4.00-5.20); White Blood Count* 8.78 K/uL (4.50-11.00)
[2023-07-04 07:26] LABS: Albumin* 3.7 g/dL (3.3-5.0); Chloride* 102 mmol/L (96-114); Sodium* 135 mmol/L (135-149)
[2023-07-04 07:27] LABS: Potassium* 3.2 mmol/L (3.6-5.1)
[2023-07-04 07:28] LABS: Cholesterol* 199 mg/dL (90-199); Slide Review Reflex No
[2023-07-04 07:29] LABS: Anion Gap 7 mEq/L (7-15); Aspartate Amino Transferase* 35 U/L (12-35); Bilirubin Total* 0.8 mg/dL (0.1-1.5); Carbon Dioxide* 26 mmol/L (20-32); Creatinine* 0.5 mg/dL (0.5-1.5); Est. Creatinine Clearance* 41.99; Estimated Glomerular Filt Rate 101 ml/min; Total Protein* 6.1 g/dL (6.0-8.3)
[2023-07-04 07:30] LABS: Alanine Aminotransferase* 20 U/L (4-35); Alkaline Phosphatase* 96 U/L (40-150); Blood Urea Nitrogen* 8 mg/dL (7-30); Calcium* 8.9 mg/dL (8.4-10.6); Glucose* 74 mg/dL (60-115); HDL Cholesterol* 49 mg/dL (>=50); LDL Cholesterol Calculated 130 mg/dL (<100); Magnesium* 2.2 mg/dL (1.5-2.6); Triglycerides* 100 mg/dL (40-149)
[2023-07-04 07:32] LABS: C Reactive Protein* 3.6 mg/dL (0.5-1.0)
[2023-07-04 07:46] LABS: Prothrombin Time 20.1 Seconds
[2023-07-04] MEDS: CYPROHEPTADINE HCL 4 MG TABLET 12 MG PO (09:17)
[2023-07-04] MEDS: MAGNESIUM OXIDE 400 MG TABLET PO (09:18)
[2023-07-04] MEDS: OMEPRAZOLE 20 MG CAPSULE DR 40 MG PO (09:18)
[2023-07-04] MEDS: guaiFENesin 100 MG/ML CUP 400 MG PO ×2 (09:18→20:49)
[2023-07-04] MEDS: POTASSIUM CHLORIDE 10 MEQ CAPSULE ER PO (09:18)
--- NOTE | 2023-07-04 13:10 | P.IMPN_ITS ---
Progress Note: A&P Assessment and plan (1) Altered mental status: Problem details: - likely due to serotonin syndrome. Status: Acute (2) Serotonin syndrome: Problem details: - likely due to chronic fluoxetine use with recently added clarithromycin and as needed ondansetron. - cyprohepatidine 12mg po x 1 am of 07/04 - stop the fluoxetine, clarithromycin, and ondansetron. - monitor closely. Will focus on supportive treatment and sedation if needed. If sedation is needed, will attempt use of lorazepam 1-2 mg IV for severe agitation not amenable to nonpharmacologic intervention efforts. Status: Acute (3) Acute hypokalemia: Problem details: replacing po dose x 1 increasing am dosing to 20meq Status: Acute (4) H. pylori infection: Problem details: - treatment initiated on 06/28/2023 with clarithromycin 500 b.i.d. plus amoxicillin 1000 b.i.d. plus omeprazole for 2 weeks. Initial plan was for 1 month after completing therapy to recheck H pylori stool antigen to confirm clearance of H pylori. - at this juncture should she demonstrate need for ongoing treatment will need to consider alternative regimen that does not contain macrolide. Status: Acute (5) Schizoaffective disorder: Problem details: - continue with use of perphenazine but stop the fluoxetine. Status: Acute (6) Multiple subsegmental pulmonary emboli without acute cor pulmonale: Problem details: - Continue warfarin to maintain therapeutic INR. Status: Acute Subjective Date Seen: 07/04/23 Interval history: Daily Progress Note - Hospital Medicine Day #: 2 CC: AMS, hallucinations, tremors - serotonin syndrome OVERNIGHT UPDATES FROM STAFF & MED, LAB, IMAGING UPDATES still shaky. feels restless but following directions better this morning. ate a good breakfast. given cyproheptadine 12mg PO this am for serotonin syndrome. RN note: Shift note: Pt continue to be confuse with high energy, tearing papers and made several attempt to self transfer. Removed her brief. Ativan 0.5mg was given at 2200. Pt had 1 large BM. Went to bed at 2230 and has been sleeping very well. Vitally stable. 141/83. Pulse 89. Rest per 16. Temp afebrile. O2 sat 96%. CBC stable Potassium is drifting down at 3.2 CRP is up Objective: speech is normal but she is not rooted in reality - legs shaky, hands show intention tremor. Vitals: see above Lungs: Clear. Cardiac: S1S2. Disposition/Potential discharge - Likely to return to previous living situation. Today I spent 50minutes seeing the patient, reviewing Expanse and EPIC notes/diagnostics, discussing the care plan with our care time that includes social work, PT/OT, pharmacy, RT, [facility] and documenting my impressions and plan in the medical record. Exam Const: Vital Signs, click to edit/add: Vital Signs - 24 hr 07/03/23 15:00 07/03/23 15:00 07/03/23 15:00 Temperature 98.6 F Pulse Rate [Pulse Oximeter] 94 82 Respiratory Rate 18 18 18 Blood Pressure [Le ft Arm] 162/81 H Pulse Oximetry 96 94 Oxygen Delivery Me thod Room Air Room Air 07/03/23 19:00 07/03/23 23:00 07/03/23 23:00 Temperature 98.6 F Pulse Rate [Pulse Oximeter] 89 Respiratory Rate 18 18 18 Blood Pressure [Le ft Arm] 150/102 H Pulse Oximetry 97 94 Oxygen Delivery Me thod Room Air Room Air 07/03/23 23:00 07/04/23 03:00 07/04/23 08:26 Temperature 98.6 F 98 F Pulse Rate [Pulse Oximeter] 64 66 Respiratory Rate 18 18 16 Blood Pressure [Le ft Arm] 138/71 119/72 Pulse Oximetry 94 98 92 Oxygen Delivery Me thod Room Air Room Air Room Air 07/04/23 08:26 07/04/23 08:30 07/04/23 10:54 Temperature 98.8 F 98.1 F Pulse Rate [Pulse Oximeter] 88 88 89 Respiratory Rate 16 16 16 Blood Pressure [Le ft Arm] 123/78 141/83 H Pulse Oximetry 92 96 Oxygen Delivery Me thod Room Air Room Air Labs Labs: Laboratory Results - last 24 hr 07/03/23 07/04/23 07/04/23 17:20 05:56 07:36 WBC 8.78 RBC 3.94 L Hgb 12.4 Hct 38.0 MCV 96 MCH 32 MCHC 33 Plt Count 290 INR 1.45 H 1.60 H Sodium 135 Potassium 3.2 L Chloride 102 Carbon Dioxide 26 Anion Gap 7 BUN 8 Creatinine 0.5 Estimated Creat Clear 41.99 Estimated GFR 101 Glucose 74 Calcium 8.9 Magnesium 2.2 Total Bilirubin 0.8 AST 35 ALT 20 Alkaline Phosphatase 96 C-Reactive Protein 3.6 H Total Protein 6.1 Albumin 3.7 Triglycerides 100 Cholesterol 199 LDL Cholesterol, Calc 130 H HDL Cholesterol 49 L TSH 1.070 Lab Acknowledgement Test Added
[2023-07-04] MEDS: POTASSIUM BICARB 25 MEQ EFFERVESCENT TAB 50 MEQ PO (13:36)
--- NOTE | 2023-07-04 16:11 | PC.SOCIAL ---
Discharge planning: back up worker met with pt briefly today. Pt stated that she wanted to talk to a Banking Teacher and that was all she wanted to talk about today. back up worker explained that this message would be relayed to the Nursing and Banking Teacher staff. Pt's friend Festus left a message for this hospital social worker today and this hospital social worker attempted to call him back, but had to leave a message. Hospitalist will know whether or not pt can discharge back to [facility] tomorrow in the morning after rounds. Social work to follow-up as needed.
[2023-07-04] MEDS: WARFARIN 3 MG TABLET 6 MG PO (17:12)
--- NOTE | 2023-07-04 18:25 | PC.NURSE ---
end of shift. pt is very confused we walked her to the BR with 1 assist walker and GB. no SL . she is alert z2 self and place. she is using the call light. eating, drinking and voiding she is incontinent. was in to see. her friend mihir was updated/. she is a fall risk and alarms are on.
[2023-07-04] MEDS: ACETAMINOPHEN 500 MG TABLET 1000 MG PO (18:30)
[2023-07-04] MEDS: ROPINIROLE HCL 1 MG TABLET PO (20:49)
[2023-07-04] MEDS: MONTELUKAST 10 MG TABLET PO (20:49)
[2023-07-04] MEDS: LORazepam 2 MG/ML inj IVP (23:49)
[2023-07-05] VITALS (7 sets, daily range): BP systolic 106–153; BP diastolic 76–95; PULSE 85–90; RESP 18–20; TEMP 36.4–37.2; O2SAT 89–95
--- NOTE | 2023-07-05 05:40 | PC.NURSE ---
Shift note: Pt was confused and picking on brief and items around her and persistent attempt to self transferred. Ativan 1mg was given at 2300 and slept throughout the night. Vitally stable.
[2023-07-05 07:19] LABS: Chloride* 102 mmol/L (96-114); Potassium* 3.6 mmol/L (3.6-5.1); Sodium* 135 mmol/L (135-149)
[2023-07-05 07:22] LABS: Anion Gap 4 mEq/L (7-15); Blood Urea Nitrogen* 11 mg/dL (7-30); Carbon Dioxide* 29 mmol/L (20-32); Creatinine* 0.6 mg/dL (0.5-1.5); Est. Creatinine Clearance* 41.99; Estimated Glomerular Filt Rate 97 ml/min; Glucose* 107 mg/dL (60-115)
[2023-07-05 07:23] LABS: Calcium* 8.9 mg/dL (8.4-10.6)
[2023-07-05 07:24] LABS: INR 1.79 (0.91-1.10)
[2023-07-05 08:14] LABS: C Reactive Protein* 5.5 mg/dL (0.5-1.0)
[2023-07-05] MEDS: POTASSIUM CHLORIDE 10 MEQ CAPSULE ER 20 MEQ PO (09:02)
[2023-07-05] MEDS: guaiFENesin 100 MG/ML CUP 400 MG PO (09:02)
[2023-07-05] MEDS: OMEPRAZOLE 20 MG CAPSULE DR 40 MG PO (09:03)
[2023-07-05] MEDS: MAGNESIUM OXIDE 400 MG TABLET PO (09:03)
[2023-07-05] MEDS: clonazePAM 0.5 MG TABLET PO ×2 (11:14→22:46)
[2023-07-05] MEDS: ACETAMINOPHEN 500 MG TABLET 1000 MG PO ×2 (11:21→20:34)
--- NOTE | 2023-07-05 14:24 | P.IMPN_ITS ---
Progress Note: A&P Assessment and plan (1) Altered mental status: Problem details: - likely due to serotonin syndrome. -slow improvement. less agitation, no more hallucinations. -still needs direction and assistance -can transfer to [facility] am of 07/06 Status: Acute (2) Serotonin syndrome: Problem details: - likely due to chronic fluoxetine use with recently added clarithromycin and as needed ondansetron. - cyprohepatidine 12mg po x 1 am of 07/04 - stop the fluoxetine, clarithromycin, and ondansetron. - monitor closely. Will focus on supportive treatment and sedation if needed. - klonopin 0.5mg po bid starting 07/05 Status: Acute (3) Acute hypokalemia: Problem details: replacing po dose x 1 increasing am dosing to 20meq normal on 07/05 Status: Acute (4) H. pylori infection: Problem details: - treatment initiated on 06/28/2023 with clarithromycin 500 b.i.d. plus amoxicillin 1000 b.i.d. plus omeprazole for 2 weeks. Initial plan was for 1 month after completing therapy to recheck H pylori stool antigen to confirm clearance of H pylori. - at this juncture should she demonstrate need for ongoing treatment will need to consider alternative regimen that does not contain macrolide. Status: Acute (5) Schizoaffective disorder: Problem details: - continue with use of perphenazine but stop the fluoxetine. Status: Acute (6) Multiple subsegmental pulmonary emboli without acute cor pulmonale: Problem details: - Continue warfarin to maintain therapeutic INR. Status: Acute Subjective Date Seen: 07/05/23 Interval history: Daily Progress Note - Hospital Medicine Day #: 4 CC: AMS - serotonin syndrome OVERNIGHT UPDATES FROM STAFF & MED, LAB, IMAGING UPDATES still shaky. feels restless but following directions better this morning. given cyproheptadine 12mg PO 07/04 for serotonin syndrome. starting klonopin 0.5mg scheduled. 111/80. Pulse 88. Respiratory rate 18. Afebrile. 90% on room air. CRP gently up - unclear etiology Objective: speech is normal she is still getting a little confused - thought the room phone was her cell phone, etc. More impressively - she's lying uncovered in a brief with her legs flopped wide apart in the recliner - Vitals: see above Lungs: Clear. Cardiac: S1S2. Disposition/Potential discharge - Likely to return to [facility] in the am for further cares; rehab Today I spent 50minutes seeing the patient, reviewing Expanse and EPIC notes/diagnostics, discussing the care plan with our care time that includes social work, PT/OT, pharmacy, RT, residential and documenting my impressions and plan in the medical record. Exam Const: Vital Signs, click to edit/add: Vital Signs - 24 hr 07/04/23 16:07 07/04/23 16:07 07/04/23 16:08 Temperature 97.3 F L Pulse Rate [Pulse Oximeter] 83 83 Respiratory Rate 16 18 18 Blood Pressure [Le ft Arm] 145/81 H Pulse Oximetry 96 96 Oxygen Delivery Me thod Room Air Room Air 07/04/23 19:00 07/04/23 23:00 07/04/23 23:00 Temperature 99.7 F H Pulse Rate [Pulse Oximeter] 95 Respiratory Rate 18 18 18 Blood Pressure [Le ft Arm] 146/86 H Pulse Oximetry 91 94 Oxygen Delivery Me thod Room Air Room Air 07/04/23 23:00 07/05/23 03:00 07/05/23 07:20 Temperature 98.3 F 98 F Pulse Rate [Pulse Oximeter] 72 85 Respiratory Rate 18 18 18 Blood Pressure [Le ft Arm] 119/73 123/76 Pulse Oximetry 94 95 89 Oxygen Delivery Me thod Room Air Room Air Room Air 07/05/23 07:20 07/05/23 07:20 07/05/23 11:15 Temperature 98 F 98.3 F Pulse Rate [Pulse Oximeter] 90 90 88 Respiratory Rate 18 18 18 Blood Pressure [Le ft Arm] 115/78 111/80 Pulse Oximetry 89 90 Oxygen Delivery Hi thod Room Air Room Air Labs Labs: Laboratory Results - last 24 hr 07/05/23 07/05/23 06:00 07:45 INR 1.79 H Sodium 135 Potassium 3.6 Chloride 102 Carbon Dioxide 29 Anion Gap 4 L BUN 11 Creatinine 0.6 Estimated Creat Clear 41.99 Estimated GFR 97 Glucose 107 Calcium 8.9 C-Reactive Protein 5.5 H Lab Acknowledgement Test Added
--- NOTE | 2023-07-05 14:44 | PC.NURSE ---
end of shift. pt is still very confused he complained of neck pain and got po Tylenol. she is up with 1 assist walker and GB. no SL . she is alert z1 today. confused to place and date and salutation. self and place. she is using the call light. eating, drinking, she is incontinent. she is a fall risk and alarms are on. she likes big pills crushed and in apple sauce and pudding.
[2023-07-05] MEDS: WARFARIN 5 MG TABLET PO (16:36)
--- NOTE | 2023-07-05 16:40 | PC.SOCIAL ---
Discharge planning: [facility] asked for updated notes on pt this morning. flavor room worker sent over updated notes this morning. Hospitalist stated this afternoon that pt can discharge on Sunday morning back to [facility]. [facility] stated that they cannot take pt back due to pt still being unstable per notes that were sent. flavor room worker informed the Charge Nurse who will update the Hospitalist. flavor room worker then sent over more recent notes from today's interactions with pt to [facility]. Pt will need a COVID test before she goes back to [facility]. Pt will also need non-emergent EMS transport back to [facility]. Social work to follow-up as needed.
--- NOTE | 2023-07-05 18:36 | PC.NURSE ---
Shift note 15-19: Pt up in chair, using call night for needs, no attempts to get up alone, up to BR w/ SBA and walker, gait stable. Continues w/ urinary incontinence as pt states is par for the course. Pleasantly confused surrounding present circumstances although no s/s of delusions or hallucinations, cooperative w/ all cares.
[2023-07-05] MEDS: MAG HYDROX/ALUMINUM HYD/SIMETH 30 ML ORAL.SUSP 15 ML PO (20:39)
--- NOTE | 2023-07-05 22:26 | P.EN_ITS ---
Chart Event Note Time Seen by Provider: 22:15 Date Seen: 07/05/23 Chart Event Note: She complained of epigastric pain, nausea, and retching - like her hiatal hernia is acting up. Pain does not radiate. Pain relieved in part by sitting up. Denies chest heaviness, pressure, tightness, pain; denies cough or dyspnea; denies syncope or near syncope; denies palpitations or chest fluttering. Does take PPI omeprazole 40 mg daily for this sort of discomfort. Also, has been taking perphenazine 4 mg once daily in the evening for years, but has not had a single dose since hospitalized, reportedly because we do not have this medicine on our formulary. It is noteworthy that sudden withdrawal of perphenazine can sometimes be associated with GI symptoms, including abdominal pain, nausea, and vomiting. On exam: Appears comfortable but tired, sitting up in bed with head of bed elevated about 60 degrees. She is articulate. We discuss drawing blood for diagnostic purposes and she promptly tells us that she can not have blood drawn from her left arm because she had left sided breast cancer in the past and had lymph node dissection in association with this. We look this up and discover that she is totally accurate. Lungs are clear to auscultation. No CVA tenderness. Heart tones with regular rhythm and normal S1S2. I can hear bowel sounds in her chest, suggestive of hiatal hernia. Abdomen with active bowel sounds, soft, nontender. No rebound or guarding. Extremities without edema. No focal motor deficits. Impression: 1. Epigastric pain. D/Dx: PUD, GERD, hiatal hernia, pancreatitis, gallbladder disease, cardiac disease, adverse reaction to acute discontinuation of perphe nazine, etc. Plan: 1. check LFT, lipase, BMP, CRP, CBC; will add trop i and ECG; 2. consider imaging; 3. already on large dose of omeprazole, 40 mg po qAM, thus will add famotidine 20 mg po qhs; 4. has not received her dose of perphenazine 4 mg HS since arrival to our hospital, which can cause GI sxs when abruptly discontinued, such as is presently occurring. Hence since we do not have perphenazine (a typical antipsychotic) on our formulary, we will give a single dose of haloperidol (also a typical antipsychotic) in the hopes that it might help if this is part of the reason for her GI sxs at this time. 5. consider additional diagnostic and interventional efforts, depending on how this condition evolves over time.
[2023-07-05] MEDS: ROPINIROLE HCL 1 MG TABLET PO (22:46)
[2023-07-05] MEDS: MONTELUKAST 10 MG TABLET PO (22:46)
[2023-07-05] MEDS: FAMOTIDINE 20 MG TABLET PO (22:54)
[2023-07-05 22:59] LABS: Albumin* 4.1 g/dL (3.3-5.0); Chloride* 100 mmol/L (96-114); Sodium* 134 mmol/L (135-149)
[2023-07-05 23:00] LABS: Potassium* 4.3 mmol/L (3.6-5.1)
[2023-07-05 23:02] LABS: Anion Gap 8 mEq/L (7-15); Aspartate Amino Transferase* 23 U/L (12-35); Bilirubin Direct* 0.1 mg/dL (0.0-0.5); Bilirubin Total* 0.8 mg/dL (0.1-1.5); Carbon Dioxide* 26 mmol/L (20-32); Creatinine* 0.6 mg/dL (0.5-1.5); Est. Creatinine Clearance* 41.99; Estimated Glomerular Filt Rate 97 ml/min
[2023-07-05 23:03] LABS: Alanine Aminotransferase* 19 U/L (4-35); Alkaline Phosphatase* 95 U/L (40-150); Blood Urea Nitrogen* 11 mg/dL (7-30); Calcium* 9.4 mg/dL (8.4-10.6); Glucose* 129 mg/dL (60-115); Lipase* 50 U/L (23-300); Total Protein* 6.9 g/dL (6.0-8.3)
[2023-07-05 23:27] LABS: Troponin I* 0.04 ng/mL (0.01-0.04)
[2023-07-05 23:32] LABS: Basophils Percent Auto 0.3 % (0.0-3.0); Eosinophils Percent Auto 0.4 % (0.0-7.0); Hematocrit 43.5 % (33.0-51.0); Hemoglobin* 14.2 gm/dL (12.0-16.0); Immature Granulocytes Pct Auto 1.3 %; Mean Corpuscular HGB Conc 33 gm/dL (32-36); Mean Corpuscular Hemoglobin 31 pg (26-34); Mean Corpuscular Volume 96 fL (80-100); Monocytes Percent Auto 8.6 % (0.0-11.0); Neutrophils Percent Auto 81.4 % (42.0-72.0); Platelet Count* 350 K/uL (140-440); RDW Coefficient of Variation % 13.7 % (11.5-15.5); Red Blood Count 4.55 m/uL (4.00-5.20); White Blood Count* 11.82 K/uL (4.50-11.00)
[2023-07-05 23:43] LABS: Slide Review Reflex No
[2023-07-05] MEDS: haloperidoL 1 MG TABLET PO (23:43)
[2023-07-06 02:27] VITALS: BP 160/101; PULSE 96; RESP 24; TEMP 37.3; O2SAT 92
[2023-07-06 05:08] VITALS: BP 135/95
[2023-07-06 06:36] LABS: SARS PCR* Negative SARS-CoV-2 (Negative)
[2023-07-06 07:00] LABS: Hematocrit 42.5 % (33.0-51.0); Hemoglobin* 13.9 gm/dL (12.0-16.0); Mean Corpuscular Hemoglobin 31 pg (26-34); Mean Corpuscular Volume 96 fL (80-100); Red Blood Count 4.43 m/uL (4.00-5.20); White Blood Count* 10.75 K/uL (4.50-11.00)
[2023-07-06 07:01] LABS: Basophils Absolute Auto 0.03 K/uL (0.00-0.30); Basophils Percent Auto 0.3 % (0.0-3.0); Eosinophils Absolute Auto 0.03 K/uL (0.00-0.50); Eosinophils Percent Auto 0.3 % (0.0-7.0); Immature Granulocytes Abs Auto 0.06 K/uL (0.00-0.30); Immature Granulocytes Pct Auto 0.6 %; Lymphocytes Percent Auto 9.1 % (20-44); Mean Corpuscular HGB Conc 33 gm/dL (32-36); Monocytes Percent Auto 7.7 % (0.0-11.0); Platelet Count* 370 K/uL (140-440); RDW Coefficient of Variation % 13.6 % (11.5-15.5)
[2023-07-06 07:12] LABS: Slide Review Reflex No
--- NOTE | 2023-07-06 07:35 | PC.NURSE ---
Patient pleasant and cooperative. Transferred with assist of two, walker and gait belt at due to not feeling well. Reported having a headache, nauseated and?upper abdominal discomfort. She states discomfort is from acid reflux. BS hypoactive. Abdomen soft. Upper abdominal tenderness on?palpation.?Given PRN antacid and Tylenol. 35?minutes later patient reported PRNs effective, however she had an episode of medium brown colored emesis shortly after that time and again one hour later. Patient reports she ate pudding for supper. CN and MD updated and new orders given. No further emesis this shift but still?reported having nausea at times. Temp elevated to 99.2. BP was elevated to 160/101. Patient reported she felt fine at that time. Recheck BP?135/95. This morning patient transferred to bedside commode with walker, gait belt and two assist.?After using commode, was weighed on standing scale and then transferred back into bed. Patient stood well on scale and was stronger, more stable transferring back to bed.?
[2023-07-06 07:45] VITALS: BP 160/101; PULSE 94; RESP 14; TEMP 37.3; O2SAT 94
[2023-07-06] MEDS: guaiFENesin 100 MG/ML CUP 400 MG PO ×2 (08:55→21:02)
[2023-07-06] MEDS: ACETAMINOPHEN 500 MG TABLET 1000 MG PO (08:55)
[2023-07-06] MEDS: POTASSIUM CHLORIDE 10 MEQ CAPSULE ER 20 MEQ PO (08:55)
[2023-07-06] MEDS: ONDANSETRON ODT 4 MG TAB PO (08:56)
[2023-07-06] MEDS: MAGNESIUM OXIDE 400 MG TABLET PO (08:56)
[2023-07-06] MEDS: OMEPRAZOLE 20 MG CAPSULE DR 40 MG PO (08:56)
--- NOTE | 2023-07-06 10:06 | PC.SOCIAL ---
Discharge planning- Pt is not medically cleared for discharge back to [facility] today. Phone call to Kacie La at [facility] and they will NOT readmit over the weekend due to staffing. Re-assess for possible return to [facility] on Sunday. Pt will need a Covid test on the day pt returns to [facility]. Social work will follow up as needed.
[2023-07-06 10:19] LABS: INR 2.42 (0.91-1.10); Prothrombin Time 28.1 Seconds
--- NOTE | 2023-07-06 10:44 | PM.IMPN1 ---
Progress Note: A&P Assessment and plan (1) Altered mental status: Problem details: - Thought to be secondary to serotonin syndrome initially, but I am thinking that she may actually be having an acute psychotic episode instead because I am not seeing any other features of serotonin syndrome or neuroleptic malignant syndrome. - I spoke with her significant other for 1/2 hour over the phone today and he noted that this is her 1st psychotic episode since she was 1st diagnosed and placed on medication many years ago. This is very much like she was at that time. He agrees with transfer to an inpatient psychiatric facility if that is available. He had concerns about holding her bed at [facility] because it is causing him 400 dollars a day to do so. I told him I would have social work speak with him tomorrow about that and that we would likely no more tomorrow about what the long-term plan is. I called mental health care intake at [facility] [phone]. We got a call back, but it was an automated message and when I called back as a message stated, it said that they were already aware of my call and that I should await their return call, however it is several hours later and that return call never came. Will continue to seek inpatient psychiatric care or phone consultation with a psychiatrist. Status: Acute (2) Serotonin syndrome: Problem details: - above I am unclear if this is the true diagnosis or if she is having a psychotic episode. - likely due to chronic fluoxetine use with recently added clarithromycin and as needed ondansetron. - cyprohepatidine 12mg po x 1 am of 07/04 - stop the fluoxetine, clarithromycin, and ondansetron. - monitor closely. Will focus on supportive treatment and sedation if needed. - klonopin 0.5mg po bid starting 07/05 - 07/07 resolving. Not quite back to baseline yet. Status: Acute (3) Schizoaffective disorder: Problem details: - continue with use of perphenazine but stop the fluoxetine. - perphenazine had not been given to the patient; started Haldol evening of 07/05 - asked pharmacy to aquire 07/06 - perphenazine started 07/06. Status: Acute (4) Acute hypokalemia: Problem details: replaced po dose x 1 increased am dosing to 20meq normal on 07/05 Status: Resolved (5) H. pylori infection: Problem details: - treatment initiated on 06/28/2023 with clarithromycin 500 b.i.d. plus amoxicillin 1000 b.i.d. plus omeprazole for 2 weeks. Initial plan was for 1 month after completing therapy to recheck H pylori stool antigen to confirm clearance of H pylori. - so far remains asymptomatic after 2 weeks of regimen. - at this juncture should she demonstrate need for ongoing treatment will need to consider alternative regimen that does not contain macrolide. - A [facility] facility has asked us to repeat H-pylori test. This was ordered today. Status: Acute (6) Multiple subsegmental pulmonary emboli without acute cor pulmonale: Problem details: - h/o PE - Continue warfarin to maintain therapeutic INR. Status: Chronic Subjective Date Seen: 07/06/23 Interval history: Daily Progress Note - Hospital Medicine Day #: 5 CC: AMS - serotonin syndrome. bipolar. OVERNIGHT UPDATES FROM STAFF & MED, LAB, IMAGING UPDATES more sedated today. pt had not had her oral Trilafon (antipsychotic) - was given 1 mg of haldol last night and slept hard overnight. this morning she is appropriate and subdued. CRP gently up - unclear etiology Objective: speech is normal. looks tired. Vitals: see above Lungs: Clear. Cardiac: S1S2. Disposition/Potential discharge - Likely to return to [facility] in the am for further cares; rehab Today I spent 50minutes seeing the patient, reviewing Expanse and EPIC notes/diagnostics, discussing the care plan with our care time that includes social work, PT/OT, pharmacy, RT, residential and documenting my impressions and plan in the medical record. Exam Const: Vital Signs, click to edit/add: Vital Signs - 24 hr 07/05/23 11:15 07/05/23 16:07 07/05/23 16:07 Temperature 98.3 F 97.5 F L Pulse Rate [Pulse Oximeter] 88 87 Respiratory Rate 18 18 18 Blood Pressure [Le ft Arm] 111/80 Blood Pressure [Ri ght Arm] 106/77 Pulse Oximetry 90 94 94 Oxygen Delivery Me thod Room Air Room Air Room Air 07/05/23 19:40 07/05/23 22:13 07/05/23 22:40 Temperature 98.5 F 99.0 F Pulse Rate [Pulse Oximeter] 88 88 Respiratory Rate 20 20 Blood Pressure [Le ft Arm] Blood Pressure [Ri ght Arm] 145/90 H 153/95 H Pulse Oximetry 92 92 91 Oxygen Delivery Me thod Room Air Room Air 07/06/23 02:27 07/06/23 05:08 07/06/23 07:45 Temperature 99.2 F Pulse Rate [Pulse Oximeter] 96 Respiratory Rate 24 14 Blood Pressure [Le ft Arm] Blood Pressure [Ri ght Arm] 160/101 H 135/95 H Pulse Oximetry 92 94 Oxygen Delivery Me thod Room Air Room Air 07/06/23 07:45 07/06/23 07:45 Temperature 99.1 F Pulse Rate [Pulse Oximeter] 94 94 Respiratory Rate 14 14 Blood Pressure [Le ft Arm] Blood Pressure [Ri ght Arm] 160/101 H Pulse Oximetry 94 Oxygen Delivery Me thod Room Air Labs Labs: Laboratory Results - last 24 hr 07/05/23 07/05/23 07/06/23 22:35 22:57 05:15 WBC 11.82 H RBC 4.55 Hgb 14.2 Hct 43.5 MCV 96 MCH 31 MCHC 33 RDW Coeff of Gunnar 13.7 Plt Count 350 Neut % (Auto) 81.4 H Lymph % (Auto) 8.0 L Franklin % (Auto) 8.6 Eos % (Auto) 0.4 Baso % (Auto) 0.3 Neut # (Auto) 9.60 H Lymph # (Auto) 0.90 Franklin # (Auto) 1.00 H Eos # (Auto) 0.00 Baso # (Auto) 0.00 Abs Immat Gran (auto) 0.20 Imm/Tot Granulo (auto) 1.3 INR Sodium 134 L Potassium 4.3 Chloride 100 Carbon Dioxide 26 Anion Gap 8 BUN 11 Creatinine 0.6 Estimated Creat Clear 41.99 Estimated GFR 97 Glucose 129 H Calcium 9.4 Total Bilirubin 0.8 Direct Bilirubin 0.1 AST 23 ALT 19 Alkaline Phosphatase 95 Troponin I 0.04 C-Reactive Protein 9.0 H Total Protein 6.9 Albumin 4.1 Lipase 50 SARS-CoV-2 (PCR) Negative SARS-CoV-2 Lab Acknowledgement Test Added 07/06/23 05:47 WBC 10.75 RBC 4.43 Hgb 13.9 Hct 42.5 MCV 96 MCH 31 MCHC 33 RDW Coeff of Gunnar 13.6 Plt Count 370 Neut % (Auto) 82.0 H Lymph % (Auto) 9.1 L Franklin % (Auto) 7.7 Eos % (Auto) 0.3 Baso % (Auto) 0.3 Neut # (Auto) 8.80 H Lymph # (Auto) 1.00 Franklin # (Auto) 0.80 Eos # (Auto) 0.03 Baso # (Auto) 0.03 Abs Immat Gran (auto) 0.06 Imm/Tot Granulo (auto) 0.6 INR 2.42 H Sodium Potassium Chloride Carbon Dioxide Anion Gap BUN Creatinine Estimated Creat Clear Estimated GFR Glucose Calcium Total Bilirubin Direct Bilirubin AST ALT Alkaline Phosphatase Troponin I C-Reactive Protein Total Protein Albumin Lipase SARS-CoV-2 (PCR) Lab Acknowledgement
[2023-07-06 11:10] VITALS: BP 111/73; PULSE 82; RESP 16; TEMP 37.2; O2SAT 93
--- NOTE | 2023-07-06 15:26 | PC.NURSE ---
End of shift/ pt has been pleasant. she was very tired and sleepy from HS meds but as the med wore off she was more awake and alert. she is up with 2 assist walk and GB to the BS. she got po zofran and ativan this am. no nausea since meds given. she likes pills crushed and in pudding. she did not want a shower. S/O and sister where updated
[2023-07-06 17:12] VITALS: BP 120/65; PULSE 78; RESP 16; TEMP 36.8; O2SAT 95
[2023-07-06] MEDS: WARFARIN 2.5 MG TABLET PO (17:54)
[2023-07-06] MEDS: MONTELUKAST 10 MG TABLET PO (21:01)
[2023-07-06] MEDS: ROPINIROLE HCL 1 MG TABLET PO (21:01)
[2023-07-06] MEDS: FAMOTIDINE 20 MG TABLET PO (21:02)
[2023-07-06 23:00] VITALS: BP 117/66; PULSE 67; RESP 16; TEMP 36.5; O2SAT 96
[2023-07-07] VITALS (8 sets, daily range): BP systolic 109–139; BP diastolic 66–80; PULSE 66–82; RESP 16–18; TEMP 36.4–36.9; O2SAT 94–97
[2023-07-07 06:23] LABS: Hematocrit 38.7 % (33.0-51.0); Hemoglobin* 12.6 gm/dL (12.0-16.0); Mean Corpuscular HGB Conc 33 gm/dL (32-36); Mean Corpuscular Hemoglobin 32 pg (26-34); Mean Corpuscular Volume 97 fL (80-100); Platelet Count* 280 K/uL (140-440); Red Blood Count 3.99 m/uL (4.00-5.20); White Blood Count* 7.54 K/uL (4.50-11.00)
[2023-07-07 06:40] LABS: Chloride* 100 mmol/L (96-114); Sodium* 134 mmol/L (135-149)
[2023-07-07 06:41] LABS: Potassium* 3.8 mmol/L (3.6-5.1); Slide Review Reflex No
[2023-07-07 06:43] LABS: Creatinine* 0.6 mg/dL (0.5-1.5); Est. Creatinine Clearance* 41.99; Estimated Glomerular Filt Rate 97 ml/min
[2023-07-07 06:44] LABS: Anion Gap 7 mEq/L (7-15); Blood Urea Nitrogen* 11 mg/dL (7-30); Carbon Dioxide* 27 mmol/L (20-32)
[2023-07-07 06:45] LABS: Calcium* 8.8 mg/dL (8.4-10.6); Glucose* 94 mg/dL (60-115)
[2023-07-07 06:47] LABS: C Reactive Protein* 5.6 mg/dL (0.5-1.0)
--- NOTE | 2023-07-07 09:20 | PC.NURSE ---
Patient alert, pleasant and cooperative. Transferred well with assist of two, walker and gait belt. Denied any discomfort. No c/o nausea, headache or upset stomach. Afebrile. VSS.
[2023-07-07] MEDS: MAGNESIUM OXIDE 400 MG TABLET PO (09:24)
[2023-07-07] MEDS: OMEPRAZOLE 20 MG CAPSULE DR 40 MG PO (09:25)
[2023-07-07] MEDS: POTASSIUM CHLORIDE 10 MEQ CAPSULE ER 20 MEQ PO (09:25)
[2023-07-07] MEDS: guaiFENesin 100 MG/ML CUP 400 MG PO ×2 (09:26→20:38)
[2023-07-07] MEDS: ALBUTEROL INHALER 2 PUFF IH ×3 (14:01→20:38)
[2023-07-07] MEDS: ACETAMINOPHEN 500 MG TABLET 1000 MG PO ×2 (14:01→19:38)
--- NOTE | 2023-07-07 15:43 | PC.NURSE ---
Prozac 40 mg PO being held d/to patient's admit diagnosis of serotonin syndrome per Dr. Diasha Dominguez. Updated sig other Festus Anguiano via phone on pt's condition .
--- NOTE | 2023-07-07 16:39 | PM.IMPN1 ---
Progress Note: A&P Assessment and plan (1) Altered mental status: Problem details: - likely due to serotonin syndrome. - Improving. less agitation, no more hallucinations. -still needs direction and assistance, mild confusion - may be ready for return to rehab tomorrow Status: Acute (2) Serotonin syndrome: Problem details: - likely due to chronic fluoxetine use with recently added clarithromycin and as needed ondansetron. - cyprohepatidine 12mg po x 1 am of 07/04 - stop the fluoxetine, clarithromycin, and ondansetron. - monitor closely. Will focus on supportive treatment and sedation if needed. - klonopin 0.5mg po bid starting 07/05 - 07/07 resolving. Not quite back to baseline yet. Status: Acute (3) Schizoaffective disorder: Problem details: - continue with use of perphenazine but stop the fluoxetine. - perphenazine had not been given to the patient; started Haldol evening of 07/05 - asked pharmacy to aquire 07/06 - perphenazine started 07/06. - perphenazine started yesterday evening. Status: Acute (4) Acute hypokalemia: Problem details: replaced po dose x 1 increased am dosing to 20meq normal on 07/05 Status: Resolved (5) H. pylori infection: Problem details: - treatment initiated on 06/28/2023 with clarithromycin 500 b.i.d. plus amoxicillin 1000 b.i.d. plus omeprazole for 2 weeks. Initial plan was for 1 month after completing therapy to recheck H pylori stool antigen to confirm clearance of H pylori. - so far remains asymptomatic after 2 weeks of regimen. - at this juncture should she demonstrate need for ongoing treatment will need to consider alternative regimen that does not contain macrolide. Status: Acute (6) Multiple subsegmental pulmonary emboli without acute cor pulmonale: Problem details: - h/o PE - Continue warfarin to maintain therapeutic INR. Status: Chronic Subjective Time Seen by Provider: 10:58 Date Seen: 07/07/23 Interval history: Shira took off all her clothes in the room this morning. Staff notes that she is still mildly confused about some things. Shira notes she is still a little shaky, but feels better than yesterday. She told me her was driving over to pick her up today, but her confirmed that he does not drive since he had a stroke. Complains of back pain that is chronic. Exam Narrative: Exam Narrative: General: No acute distress. Awake, alert, oriented x3, but confused about some things. No pallor. No jaundice. Mild tremor both hands, no asterixis. Oropharynx: Clear. Mucous membranes moist. Cardiovascular: Regular rate and rhythm. No murmurs, gallops, or rubs. Respiratory: Clear to auscultation bilaterally. No wheezes or crackles. Abdomen: Bowel sounds present. Soft, nondistended, nontender. Extremities: No pedal edema. Const: Vital Signs, click to edit/add: Vital Signs - 24 hr 07/06/23 17:12 07/06/23 17:12 07/06/23 23:00 Temperature 98.2 F 97.7 F Pulse Rate [Pulse Oximeter] 78 67 Respiratory Rate 16 16 Blood Pressure [Ri ght Arm] 120/65 117/66 Pulse Oximetry 95 95 96 Oxygen Delivery Me thod Room Air Room Air Room Air 07/06/23 23:00 07/07/23 03:00 07/07/23 07:30 Temperature 98.1 F Pulse Rate [Pulse Oximeter] 82 Respiratory Rate 18 16 Blood Pressure [Ri ght Arm] 139/80 Pulse Oximetry 96 94 97 Oxygen Delivery Me thod Room Air Room Air Room Air 07/07/23 09:00 07/07/23 12:15 07/07/23 14:06 Temperature 98.3 F 98.5 F Pulse Rate [Pulse Oximeter] 70 74 Respiratory Rate 16 18 16 Blood Pressure [Ri ght Arm] 129/78 122/76 Pulse Oximetry 97 95 97 Oxygen Delivery Me thod Room Air Room Air Room Air Labs Labs: Laboratory Results - last 24 hr 07/07/23 05:20 WBC 7.54 RBC 3.99 L Hgb 12.6 Hct 38.7 MCV 97 MCH 32 MCHC 33 Plt Count 280 Sodium 134 L Potassium 3.8 Chloride 100 Carbon Dioxide 27 Anion Gap 7 BUN 11 Creatinine 0.6 Estimated Creat Clear 41.99 Estimated GFR 97 Glucose 94 Calcium 8.8 C-Reactive Protein 5.6 H
[2023-07-07] MEDS: WARFARIN 2.5 MG TABLET PO (16:42)
[2023-07-07] MEDS: BUDESONIDE 0.25 MG/2 ML AMPUL.NEB NEB (20:40)
[2023-07-07] MEDS: MONTELUKAST 10 MG TABLET PO (20:40)
[2023-07-07] MEDS: FAMOTIDINE 20 MG TABLET PO (20:40)
[2023-07-07] MEDS: ROPINIROLE HCL 1 MG TABLET PO (20:40)
--- NOTE | 2023-07-07 22:26 | PC.NURSE ---
Shift [id number]- Patient complains of back pain this shift- seems satisfied with relief from tylenol and ice pack. She is up with assist of 1, walker, gait belt. Appears able to make needs known, with intermittent confusion.
[2023-07-08] MEDS: ACETAMINOPHEN 500 MG TABLET 1000 MG PO (01:08)
[2023-07-08 03:00] VITALS: BP 123/72; PULSE 63; RESP 20; TEMP 36.1; O2SAT 96
[2023-07-08 07:33] LABS: INR 2.73 (0.91-1.10)
--- NOTE | 2023-07-08 07:44 | PC.NURSE ---
End of Shift [id number] ? RN took over care of patient at 2300. Pt alert and oriented to self and time. Cooperative and receptive to care. RN observed pt to make out of context statements and exhibit bizarre behavior such as placing pillows, blankets, and gown on the floor and laying on the bed with a sheet covering her face and over?her head. Up with standby assistance and walker to bathroom. Partially continent of bowel and bladder. Pt reporting feeling a headache ?from when she hit her head as a child? and requested Tylenol. Intervention executed per MAR with verbalized relief. Pt observed to sleep during shift. Appears to be resting at end of shift. ?
[2023-07-08] MEDS: ALBUTEROL INHALER 2 PUFF IH ×4 (10:28→20:13)
[2023-07-08] MEDS: guaiFENesin 100 MG/ML CUP 400 MG PO ×2 (10:29→20:11)
[2023-07-08] MEDS: BUDESONIDE 0.25 MG/2 ML AMPUL.NEB NEB ×2 (10:29→20:14)
[2023-07-08] MEDS: MAGNESIUM OXIDE 400 MG TABLET PO (10:30)
[2023-07-08] MEDS: POTASSIUM CHLORIDE 10 MEQ CAPSULE ER 20 MEQ PO (10:31)
[2023-07-08 11:00] VITALS: BP 104/67; PULSE 74; RESP 18; TEMP 36.9; O2SAT 97
--- NOTE | 2023-07-08 15:05 | P.IMPN_ITS ---
Progress Note: A&P Assessment and plan (1) Altered mental status: Problem details: - Thought to be secondary to serotonin syndrome initially, but I am thinking that she may actually be having an acute psychotic episode instead because I am not seeing any other features of serotonin syndrome or neuroleptic malignant syndrome. - I spoke with her significant other for 1/2 hour over the phone today and he noted that this is her 1st psychotic episode since she was 1st diagnosed and placed on medication many years ago. This is very much like she was at that time. He agrees with transfer to an inpatient psychiatric facility if that is available. He had concerns about holding her bed at [facility] because it is causing him 400 dollars a day to do so. I told him I would have social work speak with him tomorrow about that and that we would likely no more tomorrow about what the long-term plan is. I called mental health care intake at [place] [phone]. We got a call back, but it was an automated message and when I called back as a message stated, it said that they were already aware of my call and that I should await their return call, however it is several hours later and that return call never came. Will continue to seek inpatient psychiatric care or phone consultation with a psychiatrist. Status: Acute (2) Serotonin syndrome: Problem details: - above I am unclear if this is the true diagnosis or if she is having a psychotic episode. - likely due to chronic fluoxetine use with recently added clarithromycin and as needed ondansetron. - cyprohepatidine 12mg po x 1 am of 07/04 - stop the fluoxetine, clarithromycin, and ondansetron. - monitor closely. Will focus on supportive treatment and sedation if needed. - klonopin 0.5mg po bid starting 07/05 - 07/07 resolving. Not quite back to baseline yet. Status: Acute (3) Schizoaffective disorder: Problem details: - continue with use of perphenazine but stop the fluoxetine. - perphenazine had not been given to the patient; started Haldol evening of 07/05 - asked pharmacy to aquire 07/06 - perphenazine started 07/06. Status: Acute (4) H. pylori infection: Problem details: - treatment initiated on 06/28/2023 with clarithromycin 500 b.i.d. plus amoxicillin 1000 b.i.d. plus omeprazole for 2 weeks. Initial plan was for 1 month after completing therapy to recheck H pylori stool antigen to confirm clearance of H pylori. - so far remains asymptomatic after 2 weeks of regimen. - at this juncture should she demonstrate need for ongoing treatment will need to consider alternative regimen that does not contain macrolide. Status: Acute (5) Multiple subsegmental pulmonary emboli without acute cor pulmonale: Problem details: - h/o PE - Continue warfarin to maintain therapeutic INR. Status: Chronic Time Spent With Patient Total time spent: Today I spent 45 minutes rounding on the patient. Greater than 50% included phone call with significant other, discussing care with the team, reviewing data, updating and managing the care plan. Subjective Time Seen by Provider: 14:45 Date Seen: 07/08/23 Interval history: Shira continues to be confused with psychotic features. She is naked frequently and blurts out nonsequetor odd statements such as, I have a red shoe or have you seen my horses? Today she was touching her leg and pointing at it while naked, saying my butt hurts. Exam Narrative: Exam Narrative: General: No acute distress. Awake, alert, oriented, psychosis. No pallor. No jaundice. No tremor, no asterixis. Oropharynx: Clear. Mucous membranes moist. Cardiovascular: Regular rate and rhythm. No murmurs, gallops, or rubs. Respiratory: Clear to auscultation bilaterally. No wheezes or crackles. Abdomen: Bowel sounds present. Soft, nondistended, nontender. Extremities: No pedal edema. Const: Vital Signs, click to edit/add: Vital Signs - 24 hr 07/07/23 16:30 07/07/23 16:30 07/07/23 19:35 Temperature 98 F 97.5 F L Pulse Rate [Pulse Oximeter] 76 73 Respiratory Rate 18 18 Blood Pressure [Ri ght Arm] 109/70 110/66 Pulse Oximetry 95 95 96 Oxygen Delivery Me thod Room Air Room Air Room Air 07/07/23 23:00 07/07/23 23:00 07/08/23 03:00 Temperature 97.8 F 96.9 F L Pulse Rate [Pulse Oximeter] 66 63 Respiratory Rate 16 20 Blood Pressure [Ri ght Arm] 117/78 123/72 Pulse Oximetry 95 95 96 Oxygen Delivery Me thod Room Air Room Air Room Air Labs Labs: Laboratory Results - last 24 hr 07/08/23 05:26 INR 2.73 H
[2023-07-08 15:40] VITALS: BP 134/81; PULSE 67; RESP 18; TEMP 36.5; O2SAT 97
--- NOTE | 2023-07-08 15:59 | PC.NURSE ---
Pt slept in this morning, when she woke up she had peed the entire bed, pericares provided, pt showered by Christal BABB and pt up to the recliner for bkfst. Pt naked in her chair later in the afternoon during evaluation by Dr. Dominguez. Pt returned to bed and rectal exam per hospitalist completed. Pt fell asleep and then was found naked in her bed with bedding, pillows and robe off, pt had another large urinary incontinent episode. Cares per CNAs at shift change. Repetitive non-sensical speech pattern, pt remains quite confused, requires frequent checks, reorientation and redirection with nsg interventions. Report to Patricia Alejandra RN for evening shift. Bed/Chair alarms engaged d/to fall risk. Dr. Dominguez updated significant other Bill via phone at shift change. Plan to seek psychiatric medical placement per hospitalist.
[2023-07-08] MEDS: WARFARIN 2 MG TABLET 4 MG PO (16:36)
[2023-07-08 19:04] VITALS: BP 131/78; PULSE 77; RESP 18; TEMP 36.6; O2SAT 97
[2023-07-08] MEDS: ROPINIROLE HCL 1 MG TABLET PO (20:14)
[2023-07-08] MEDS: MONTELUKAST 10 MG TABLET PO (20:14)
[2023-07-08] MEDS: SENNOSIDES/DOCUSATE TABLET 1 TAB PO (20:14)
[2023-07-08] MEDS: FAMOTIDINE 20 MG TABLET PO (20:15)
--- NOTE | 2023-07-08 22:57 | PC.NURSE ---
Shift [id number]- Patient somewhat confused, off, but mostly appropriate throughout shift. She is both incontinent and continent. Pills crushed in pudding.
[2023-07-08 23:00] VITALS: BP 112/74; PULSE 81; RESP 18; TEMP 36.6; O2SAT 94
[2023-07-09] MEDS: ACETAMINOPHEN 500 MG TABLET 1000 MG PO ×2 (02:10→18:07)
[2023-07-09] MEDS: MAG HYDROX/ALUMINUM HYD/SIMETH 30 ML ORAL.SUSP 15 ML PO (02:10)
[2023-07-09 03:00] VITALS: BP 124/78; PULSE 65; RESP 18; TEMP 36.4; O2SAT 97
--- NOTE | 2023-07-09 05:56 | PC.NURSE ---
Shift note: Pt continue to be confuse, use call light inappropriately. Made several attempt to self-transfer. Pt did not have adequate sleep due the impulse of self transfer to the BR. Vitally stable.
[2023-07-09 07:00] VITALS: BP 136/90; PULSE 72; RESP 20; TEMP 36.6; O2SAT 94
[2023-07-09 07:10] LABS: Prothrombin Time 28.9 Seconds
[2023-07-09] MEDS: OMEPRAZOLE 20 MG CAPSULE DR 40 MG PO (07:37)
[2023-07-09] MEDS: ALBUTEROL INHALER 2 PUFF IH ×2 (08:31→17:05)
[2023-07-09] MEDS: MAGNESIUM OXIDE 400 MG TABLET PO (08:32)
[2023-07-09] MEDS: guaiFENesin 100 MG/ML CUP 400 MG PO ×2 (08:32→19:45)
[2023-07-09] MEDS: POTASSIUM CHLORIDE 10 MEQ CAPSULE ER 20 MEQ PO (08:32)
[2023-07-09] MEDS: SENNOSIDES/DOCUSATE TABLET 1 TAB PO ×2 (08:32→19:42)
[2023-07-09] MEDS: BUDESONIDE 0.25 MG/2 ML AMPUL.NEB NEB (08:33)
[2023-07-09 11:47] VITALS: BP 130/87; PULSE 84; RESP 16; TEMP 36.6; O2SAT 94
--- NOTE | 2023-07-09 14:56 | PC.NURSE ---
End of Shift Note: Patient was up in the chair most of this shift. She laid down after lunch and has been sleeping. she did ambulate in the hallway and to the today with SBA. She does have intermittent confusion noted as she thought she was supposed to be riding a tricycle. Asked if she knew where she was and she did answer appropriately [facility]. She also can recall my name everytime I enter her room. [facility] called and felt she was not medically cleared yet for admission to their facility. They are requesting a repeat stool test will continue to monitor
[2023-07-09 15:00] VITALS: BP 141/86; PULSE 75; RESP 16; TEMP 36.7; O2SAT 95
--- NOTE | 2023-07-09 16:06 | P.IMPN_ITS ---
Progress Note: A&P Assessment and plan (1) Altered mental status: Problem details: - Thought to be secondary to serotonin syndrome initially, but I am thinking that she may actually be having an acute psychotic episode instead because I am not seeing any other features of serotonin syndrome or neuroleptic malignant syndrome. - I spoke with her significant other for 1/2 hour over the phone today and he noted that this is her 1st psychotic episode since she was 1st diagnosed and placed on medication many years ago. This is very much like she was at that time. He agrees with transfer to an inpatient psychiatric facility if that is available. He had concerns about holding her bed at [facility] because it is causing him 400 dollars a day to do so. I told him I would have social work speak with him tomorrow about that and that we would likely no more tomorrow about what the long-term plan is. I called mental health care intake at [place] [phone]. We got a call back, but it was an automated message and when I called back as a message stated, it said that they were already aware of my call and that I should await their return call, however it is several hours later and that return call never came. Will continue to seek inpatient psychiatric care or phone consultation with a psychiatrist. Status: Acute (2) Serotonin syndrome: Problem details: - above I am unclear if this is the true diagnosis or if she is having a psychotic episode. - likely due to chronic fluoxetine use with recently added clarithromycin and as needed ondansetron. - cyprohepatidine 12mg po x 1 am of 07/04 - stop the fluoxetine, clarithromycin, and ondansetron. - monitor closely. Will focus on supportive treatment and sedation if needed. - klonopin 0.5mg po bid starting 07/05 - 07/07 resolving. Not quite back to baseline yet. Status: Acute (3) Schizoaffective disorder: Problem details: - continue with use of perphenazine but stop the fluoxetine. - perphenazine had not been given to the patient; started Haldol evening of 07/05 - asked pharmacy to aquire 07/06 - perphenazine started 07/06. Status: Acute (4) H. pylori infection: Problem details: - treatment initiated on 06/28/2023 with clarithromycin 500 b.i.d. plus amoxicillin 1000 b.i.d. plus omeprazole for 2 weeks. Initial plan was for 1 month after completing therapy to recheck H pylori stool antigen to confirm clearance of H pylori. - so far remains asymptomatic after 2 weeks of regimen. - at this juncture should she demonstrate need for ongoing treatment will need to consider alternative regimen that does not contain macrolide. - A [facility]psych facility has asked us to repeat H-pylori test. This was ordered today. Status: Acute (5) Multiple subsegmental pulmonary emboli without acute cor pulmonale: Problem details: - h/o PE - Continue warfarin to maintain therapeutic INR. Status: Chronic Plan 67 y/o female with history of schizoaffective disorder for which she has been on perphenazine and recently came into the hospital with altered mental status, suspected flare of psychosis. Him currently seeking inpatient psychiatric care for her, with no safe discharge option at this time. Time Spent With Patient Total time spent: Today I spent 25 minutes rounding on the patient. Greater than 50% included phone call with significant other, discussing care with the team, reviewing data, updating and managing the care plan. Subjective Time Seen by Provider: 12:00 Date Seen: 07/09/23 Interval history: Shira asked a few more appropriate questions today. Her partner, Festus, asked for a phone call. I spoke with him over phone this afternoon and updated him that we are continuing to actively search for a [facility]psych facility for her. Exam Narrative: Exam Narrative: General: No acute distress. Awake, alert, oriented, psychosis, dressed today, somewhat less confused. No pallor. No jaundice. No tremor, no asterixis. Oropharynx: Clear. Mucous membranes moist. Cardiovascular: Regular rate and rhythm. No murmurs, gallops, or rubs. Respiratory: Clear to auscultation bilaterally. No wheezes or crackles. Abdomen: Bowel sounds present. Soft, nondistended, nontender. Extremities: No pedal edema. Const: Vital Signs, click to edit/add: Vital Signs - 24 hr 07/08/23 19:04 07/08/23 23:00 07/08/23 23:00 Temperature 97.8 F Pulse Rate [Pulse Oximeter] 77 Respiratory Rate 18 18 18 Blood Pressure [Ri ght Arm] 131/78 Pulse Oximetry 97 94 Oxygen Delivery Me thod Room Air Room Air 07/08/23 23:00 07/09/23 03:00 07/09/23 07:00 Temperature 98 F 97.5 F L 97.9 F Pulse Rate [Pulse Oximeter] 81 65 72 Respiratory Rate 18 18 20 Blood Pressure [Ri ght Arm] 112/74 124/78 136/90 H Pulse Oximetry 94 97 94 Oxygen Delivery Me thod Room Air Room Air Room Air 07/09/23 07:00 07/09/23 07:00 07/09/23 11:47 Temperature 98 F Pulse Rate [Pulse Oximeter] 72 84 Respiratory Rate 20 16 Blood Pressure [Ri ght Arm] 130/87 Pulse Oximetry 94 94 Oxygen Delivery Me thod Room Air Room Air Labs Labs: Laboratory Results - last 24 hr 07/09/23 06:02 INR 2.50 H
--- NOTE | 2023-07-09 16:13 | PC.SOCIAL ---
Discharge planning: wood processing worker faxed referral packets for pt to several Inpatient Geriatric Psychiatric units per the Hospitalist's request during morning rounds. 1. [facility] #[phone]: declined. 2. [facility] #[phone]: declined due to pt not being independent with ADL's(pt is a one assist currently). 3. [facility] #[phone]: declined due to not feeling the pt needs inpatient psych. Suggested pt go back to her previous facility and do outpatient mental health treatment. 4. [facility] #[phone]: reviewing. Social work to follow-up as needed.
[2023-07-09] MEDS: WARFARIN 2 MG TABLET 4 MG PO (16:59)
[2023-07-09 17:59] VITALS: BP 115/82; PULSE 79; RESP 16; TEMP 36.7; O2SAT 94
[2023-07-09] MEDS: ROPINIROLE HCL 1 MG TABLET PO (19:40)
[2023-07-09] MEDS: MONTELUKAST 10 MG TABLET PO (19:41)
[2023-07-09] MEDS: FAMOTIDINE 20 MG TABLET PO (19:41)
--- NOTE | 2023-07-09 21:48 | PC.NURSE ---
VSS, RA. Neck and back pain of 7- some relief w/ PRN tylenol & ice. Very pleasant, cooperative. No confusion. Ate 75% of dinner, 1100 cc fluids in. Voided x2. Last BM yesterday, 07/09. Still need stool sample. No IV. Will continue to monitor, follow POC, and keep pt and family updated. Rohini Gerber RN
[2023-07-09 23:00] VITALS: BP 116/64; PULSE 60; RESP 16; TEMP 36.6; O2SAT 94; O2SAT 95
[2023-07-10] MEDS: ACETAMINOPHEN 500 MG TABLET 1000 MG PO ×4 (00:16→20:42)
[2023-07-10] MEDS: LORazepam 0.5 MG TABLET PO (00:17)
[2023-07-10] MEDS: OMEPRAZOLE 20 MG CAPSULE DR 40 MG PO (06:02)
--- NOTE | 2023-07-10 06:15 | PC.NURSE ---
Pt A&O to person and place overnight. Restless in beginning of shift with c/o headache /. Frequent call light use and pt room has been full of clutter with belongings all over the floor each time nurse enters the room. Gave PRN Tylenol and PRN Ativan x1 dose @ 0015 with improvement. Pt was able to sleep intermittently between cares. Pt VSS and afebrile overnight. 0300 VS not performed to allow pt to sleep. SBA with GB and 2WW. Inontinent of urine, no BM overnight. Still needing stool sample for H. Pylori test.?
[2023-07-10 06:57] LABS: INR 2.87 (0.91-1.10); Prothrombin Time 32.3 Seconds
[2023-07-10 07:00] VITALS: BP 128/74; PULSE 76; RESP 20; TEMP 36.7; O2SAT 94
[2023-07-10] MEDS: guaiFENesin 100 MG/ML CUP 400 MG PO ×2 (08:05→20:44)
[2023-07-10] MEDS: SENNOSIDES/DOCUSATE TABLET 1 TAB PO ×2 (08:05→20:43)
[2023-07-10] MEDS: POTASSIUM CHLORIDE 10 MEQ CAPSULE ER 20 MEQ PO (08:05)
[2023-07-10] MEDS: MAGNESIUM OXIDE 400 MG TABLET PO (08:05)
[2023-07-10] MEDS: ALBUTEROL INHALER 2 PUFF IH ×3 (08:06→20:45)
[2023-07-10] MEDS: BUDESONIDE 0.25 MG/2 ML AMPUL.NEB NEB ×2 (08:06→20:45)
[2023-07-10] MEDS: FLUOXETINE HCL 20 MG CAPSULE 40 MG PO (08:22)
--- NOTE | 2023-07-10 10:56 | P.IMPN_ITS ---
Progress Note: A&P Assessment and plan (1) Altered mental status: Problem details: The cause for altered mental status is uncertain. Initial concern about serotonin syndrome. Then thought more likely to be in acute psychotic episode related to her schizoaffective disorder. She now appears to be fairly close to baseline functioning. She is not clinically appear to have serotonin syndrome today and so I have resumed her fluoxetine, a chronic medication that was apparently effective for her. We have been pursuing adult psychiatric inpatient placement for her. No beds were available in the last couple days. At this point because she has doing much better she may not require this. Will continue to monitor here in our hospital on her normal home medication. If her behavior and mental status remain fairly normal I think she can return to [address] [place] [address]. Status: Acute (2) H. pylori infection: Problem details: - treatment initiated on 06/28/2023 with clarithromycin 500 b.i.d. plus amoxicillin 1000 b.i.d. plus omeprazole for 2 weeks. Initial plan was for 1 month after completing therapy to recheck H pylori stool antigen to confirm clearance of H pylori. - so far remains asymptomatic after 2 weeks of regimen. - at this juncture should she demonstrate need for ongoing treatment will need to consider alternative regimen that does not contain macrolide. - A [facility]psych facility has asked us to repeat H-pylori test. This was ordered today. Status: Acute (3) Biliary dyskinesia: Problem details: 06/26/2023 HIDA scan shows ejection fraction 21%. No biliary obstruction. No further evaluation or treatment unless having significant ongoing postprandial symptoms Status: Acute (4) Schizoaffective disorder: Problem details: - continue with use of perphenazine and resume fluoxetine today. Resume Klonopin as well. We have been unable to determine whether she was getting her perphenazine as prescribed. Status: Acute (5) Multiple subsegmental pulmonary emboli without acute cor pulmonale: Problem details: - h/o PE - Continue warfarin to maintain therapeutic INR. Status: Chronic (6) Vomiting: Problem details: This was the primary cause of her hospitalization 3 weeks ago. Improved during that hospital stay. Cause was never entirely clear. Was treated for H pylori at discharge. Treatment was stopped. Status: Acute (7) Discharge planning issues: Problem details: Patient's mental health concerns appear to be better today. Will resume her normal outpatient medications for this and continue to monitor. Possible discharge back to [facility] in the next day or 2. Status: Acute Time Spent With Patient Total time spent: Total time spent today is 60 minutes, 40 minutes in coordination of care and discussing with patient and other providers ongoing evaluation management of deuce izoaffective disorder, acute psychosis, medication interactions. Subjective Date Seen: 07/10/23 Interval history: Altered mental status including confusion and disorientation with delusions. On the day of admission she seemed to have more agitation. She was noted to have some muscle rigidity and hyper reflexia and there was concern for serotonin syndrome. Patient was hospitalized the week prior to this admission at that time she was having intractable nausea and vomiting. Extensive workup did not show any obvious cause for this. She was found to have a positive H pylori stool antigen and was started on amoxicillin and clarithromycin. At admission she had her fluoxetine and clarithromycin stopped. She was continued on her perphenazine. She was observed to be quite confused and having some delusions as well. Today she is oriented to her circumstances she is pleasant and cooperative. She reports no hallucinations. She does recall some events from earlier in her hospital stay but not much specifics. She tells me she wants to return to live with her boyfriend in [place]. She has no concerns today other than that. Exam Narrative: Exam Narrative: She is alert, pleasant and appears in no distress. She is oriented to her circumstances. Speech is normal. She appears to be back to baseline mental status. Eyes are normal. Pupils are normal. Reactive to light. Respirations are clear to auscultation. Cardiovascular: S1, S2, regular rate and rhythm. Abdomen: Bowel sounds active. Abdomen is soft without tenderness or mass. She has very mild fine tremor in her right hand and to a lesser extent her left hand. No rigidity. No clonus. Const: Vital Signs, click to edit/add: Vital Signs - 24 hr 07/09/23 11:47 07/09/23 15:00 07/09/23 15:00 Temperature 98 F 98.0 F Pulse Rate [Pulse Oximeter] 84 75 Respiratory Rate 16 16 Blood Pressure [Ri ght Arm] 130/87 141/86 H Pulse Oximetry 94 95 95 Oxygen Delivery Me thod Room Air Room Air Room Air 07/09/23 15:00 07/09/23 17:59 07/09/23 23:00 Temperature 98.0 F Pulse Rate [Pulse Oximeter] 75 79 60 Respiratory Rate 16 16 16 Blood Pressure [Ri ght Arm] 115/82 Pulse Oximetry 94 Oxygen Delivery Id thod Room Air 07/09/23 23:00 07/09/23 23:00 07/10/23 07:00 Temperature 97.8 F Pulse Rate [Pulse Oximeter] 60 76 Respiratory Rate 16 16 20 Blood Pressure [Ri ght Arm] 116/64 Pulse Oximetry 94 95 Oxygen Delivery Id thod Room Air Room Air 07/10/23 07:00 07/10/23 07:00 Temperature 98.0 F Pulse Rate [Pulse Oximeter] 76 Respiratory Rate 20 Blood Pressure [Ri ght Arm] 128/74 Pulse Oximetry 94 94 Oxygen Delivery Id thod Room Air Room Air Labs Labs: Laboratory Results - last 24 hr 07/10/23 05:36 INR 2.87 H
[2023-07-10 11:00] VITALS: BP 128/74; PULSE 82; RESP 20; TEMP 37; O2SAT 95
--- NOTE | 2023-07-10 13:58 | PC.NURSE ---
End of Shift Note: Patient may possibly be less confused today. She did sit up in the recliner for most of today and then she ambulated to the end of the hallway with SBA with the doctor of nursing practice and back to her room. She was complaining of some hip pain so enc her to do some activity to stretch her hip a little. She was then going to lay down in her bed and hopefully take a nap. Will continue to monitor until next shift arrives
[2023-07-10 15:00] VITALS: BP 120/73; PULSE 82; RESP 16; TEMP 36.3; O2SAT 97
--- NOTE | 2023-07-10 16:09 | PC.SOCIAL ---
Discharge planning: line up worker updated [facility] today about pt. Explained that her medications were adjusted and pt is stabilizing more and is almost back to baseline. line up worker will send over updated notes in the morning. Pt may be able to discharge back to [facility] tomorrow. Social work to follow-up as needed.
[2023-07-10] MEDS: WARFARIN 3 MG TABLET PO (16:59)
[2023-07-10 19:00] VITALS: BP 118/86; PULSE 80; RESP 18; TEMP 36.6; O2SAT 94
[2023-07-10] MEDS: ROPINIROLE HCL 1 MG TABLET PO (20:42)
[2023-07-10] MEDS: FAMOTIDINE 20 MG TABLET PO (20:43)
[2023-07-10] MEDS: clonazePAM 0.5 MG TABLET PO (20:44)
[2023-07-10] MEDS: MELATONIN 3 MG TABLET PO (20:44)
[2023-07-10] MEDS: MONTELUKAST 10 MG TABLET PO (20:48)
--- NOTE | 2023-07-10 22:47 | PC.NURSE ---
End of Shift: Patient pleasant and cooperative. Afebrile. Alert to self and place. PRN Tylenol x1 for generalized discomfort. Tolerating regular diet with no nausea. Up with 1 assist, walker and gait belt to chair and bathroom.
[2023-07-10 23:00] VITALS: BP 118/86; PULSE 80; RESP 14; RESP 18; TEMP 36.6; O2SAT 94
[2023-07-11] VITALS (9 sets, daily range): BP systolic 114–130; BP diastolic 68–103; PULSE 72–100; RESP 14–20; TEMP 36.6–36.8; O2SAT 69–97; BMI 27.2
[2023-07-11] MEDS: guaiFENesin 100 MG/ML CUP 400 MG PO ×2 (01:40→20:36)
[2023-07-11] MEDS: OMEPRAZOLE 20 MG CAPSULE DR 40 MG PO ×2 (05:42→07:53)
--- NOTE | 2023-07-11 05:58 | PC.NURSE ---
Pt VSS and afebrile overnight. A&O to person, place and time. Incontinent of urine overnight. SBA with GB and 2WW but required multiple cues and verbal direction on appropriate use of 2WW. Pt would often walk sideways with it or wouldn?t turn her body with the walker. C/o having sore throat & a dry cough so PRN Robitussin given x1 dose @ 0140. VS not obtained at 0300 to allow pt to sleep. ?
[2023-07-11] MEDS: ACETAMINOPHEN 500 MG TABLET 1000 MG PO ×2 (07:53→15:32)
[2023-07-11] MEDS: MAGNESIUM OXIDE 400 MG TABLET PO (07:53)
[2023-07-11] MEDS: POTASSIUM CHLORIDE 10 MEQ CAPSULE ER 20 MEQ PO (07:54)
[2023-07-11] MEDS: FLUOXETINE HCL 20 MG CAPSULE 40 MG PO (07:54)
[2023-07-11] MEDS: BUDESONIDE 0.25 MG/2 ML AMPUL.NEB NEB (09:31)
[2023-07-11] MEDS: ALBUTEROL INHALER 2 PUFF IH ×3 (09:31→20:43)
--- NOTE | 2023-07-11 11:57 | PM.IMPN1 ---
Progress Note: A&P Assessment and plan (1) Altered mental status: Problem details: The cause for altered mental status is uncertain. Initial concern about serotonin syndrome. Then or all it was thought to be more likely to be in acute psychotic episode related to her schizoaffective disorder. She now appears to be fairly close to baseline functioning. She is not clinically appear to have serotonin syndrome today and so I have resumed her fluoxetine at a lower dose of 20 mg daily, a chronic medication that was apparently effective for her. We have been pursuing adult psychiatric inpatient placement for her without success. No beds were available in the last couple days. At this point because she has doing much better she may not require this. Will continue to monitor here in our hospital on her normal home medication. If her behavior and mental status remain fairly normal I think she can return to [address] [place] [address]. I have consulted psychiatric nurse practitioner for 2nd opinion Status: Acute (2) H. pylori infection: Problem details: - treatment initiated on 06/28/2023 with clarithromycin 500 b.i.d. plus amoxicillin 1000 b.i.d. plus omeprazole for 2 weeks. Initial plan was for 1 month after completing therapy to recheck H pylori stool antigen to confirm clearance of H pylori. - so far remains asymptomatic after 2 weeks of regimen. - at this juncture should she demonstrate need for ongoing treatment will need to consider alternative regimen that does not contain macrolide. She is not currently having symptoms. I would favor repeat treatment of H pylori with testing 1 month after treatment once she has stabilized her mental health problems Status: Acute (3) Biliary dyskinesia: Problem details: 06/26/2023 HIDA scan shows ejection fraction 21%. No biliary obstruction. 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 Status: Chronic (6) Vomiting: Problem details: This was the primary cause of her hospitalization 3 weeks ago. Improved during that hospital stay. Cause was never entirely clear. Was treated for H pylori at discharge. Treatment was stopped. Status: Acute (7) Discharge planning issues: Problem details: Patient's mental health concerns appear to be better today. Will resume her normal outpatient medications for this and continue to monitor. Possible discharge back to [facility] in the next couple days Status: Acute Plan Continue in-hospital for adjustment of psychiatric medications and monitoring of symptoms with a plan to discharge back to [address] [place] [address] for outpatient mental health follow-up with [facility] Time Spent With Patient Total time spent: Total time spent today is 55 minutes, 45 minutes in coordination of care discussing with patient, boyfriend mihir Ig[facility] Douglass, ongoing plan of care Subjective Date Seen: 07/11/23 Interval history: Altered mental status including confusion and disorientation with delusions. On the day of admission she seemed to have more agitation. She was noted to have some muscle rigidity and hyper reflexia and there was concern for serotonin syndrome. Patient was hospitalized the week prior to this admission at that time she was having intractable nausea and vomiting. Extensive workup did not show any obvious cause for this. She was found to have a positive H pylori stool antigen and was started on amoxicillin and clarithromycin. At admission she had her fluoxetine and clarithromycin stopped. She was continued on her perphenazine after it was held for 3 days. She was observed to be quite confused and having some delusions as well. In reviewing her records I see that she had a psychotic episode in her 20s with 3 psychiatric hospitalizations. She was eventually diagnosed with schizoaffective disorder. She has been treated with perphenazine 4 mg daily and fluoxetine 20 mg daily chronically for years. It appears she has been relatively stable without psychotic episodes for many years. She was apparently getting some mental health care but reports none in the last few years. No recent hospitalizations for mental health problems. Yesterday fluoxetine was restarted. I discontinued her benzodiazepines which were given p.r.n. Today she is oriented to her circumstances she is pleasant and cooperative. She reports no hallucinations. She does recall some events from earlier in her hospital stay but not much specifics. She tells me she wants to return to live with her boyfriend in [place]. She has no concerns today other than that. Last night she had episodes of some confusion and agitation. She otherwise had uneventful night and reports feeling fine this morning. Exam Narrative: Exam Narrative: She is alert and appears in no distress. She is oriented to her circumstances. She is pleasant. Speech is fluent. No pressured speech. No flight of ideas. No delusions or hallucinations noted. Responses are entirely appropriate. She is not anxious or restless or agitated. She is observed to eat breakfast fairly vigorously without any difficulties. Const: Vital Signs, click to edit/add: Vital Signs - 24 hr 07/10/23 15:00 07/10/23 15:00 07/10/23 15:00 Temperature 97.3 F L Pulse Rate [Pulse Oximeter] 82 82 Respiratory Rate 16 16 Blood Pressure [Ri ght Arm] 120/73 Pulse Oximetry 97 97 Oxygen Delivery Me thod Room Air Room Air 07/10/23 19:00 07/10/23 23:00 07/10/23 23:00 Temperature 97.8 F Pulse Rate [Pulse Oximeter] 80 80 Respiratory Rate 18 14 18 Blood Pressure [Ri ght Arm] 118/86 Pulse Oximetry 94 94 Oxygen Delivery Me thod Room Air Room Air 07/10/23 23:00 07/11/23 00:40 07/11/23 00:40 Temperature 97.8 F Pulse Rate [Pulse Oximeter] 80 76 Respiratory Rate 18 14 14 Blood Pressure [Ri ght Arm] 118/86 Pulse Oximetry 94 96 Oxygen Delivery Me thod Room Air Room Air 07/11/23 00:43 07/11/23 07:00 07/11/23 07:00 Temperature 98.2 F Pulse Rate [Pulse Oximeter] 76 72 Respiratory Rate 14 16 Blood Pressure [Ri ght Arm] 114/68 129/75 Pulse Oximetry 96 96 97 Oxygen Delivery Me thod Room Air Room Air Room Air 07/11/23 11:45 Temperature 98 F Pulse Rate [Pulse Oximeter] 94 Respiratory Rate 16 Blood Pressure [Ri ght Arm] 116/91 H Pulse Oximetry 94 Oxygen Delivery Me thod Room Air Documenting provider has reviewed patient's vital signs: yes
--- NOTE | 2023-07-11 13:58 | PC.SOCIAL ---
Discharge planning: Pt will stay at the hospital tonight per the Hospitalist. research worker encyclopedia informed Marleny at [facility]. Social work to follow-up as needed.
[2023-07-11] MEDS: ARIPiprazole 10 MG TABLET PO (15:32)
[2023-07-11] MEDS: WARFARIN 2 MG TABLET 4 MG PO (18:10)
--- NOTE | 2023-07-11 18:33 | PC.NURSE ---
End of Shift: The patient is alert to self, place, and month only upon assessment this AM/PM/. She calls appropriately. Up in the chair throughout the day. Up SBA w/ GB and RW to the BR. The patient is continent/ incontinent of urine. Although continent of bowel. 1 large soft BM this shift. Held stool softener per patient request. The patient has moderate/severe pain in her back and hip intermittently throughout the day. The pain was well controlled with administration of tylenol PRN q6. No IV. The patient visited on the phone with her Significant other Bill today. Call light within reach. CHARU ANDREW BSN
[2023-07-11] MEDS: MONTELUKAST 10 MG TABLET PO (20:34)
[2023-07-11] MEDS: ROPINIROLE HCL 1 MG TABLET PO (20:34)
[2023-07-11] MEDS: MELATONIN 3 MG TABLET PO (20:34)
[2023-07-11] MEDS: FAMOTIDINE 20 MG TABLET PO (20:34)
[2023-07-11] MEDS: SENNOSIDES/DOCUSATE TABLET 1 TAB PO (20:34)
[2023-07-12] VITALS (7 sets, daily range): BP systolic 105–116; BP diastolic 66–90; PULSE 69–80; RESP 16; TEMP 36.3–36.8; O2SAT 93–98
[2023-07-12] MEDS: ACETAMINOPHEN 500 MG TABLET 1000 MG PO ×2 (00:41→14:26)
--- NOTE | 2023-07-12 04:35 | PC.NURSE ---
Patient pleasant, alert and cooperative. Ice pack, warm pack and PRN Tylenol given for low back pain rated 5/10. Denies nausea. Transferred well with walker, gait belt and assist of one. VSS.?
[2023-07-12] MEDS: BUDESONIDE 0.25 MG/2 ML AMPUL.NEB NEB ×2 (08:48→21:15)
[2023-07-12] MEDS: ARIPiprazole 10 MG TABLET PO (08:48)
[2023-07-12] MEDS: ALBUTEROL INHALER 2 PUFF IH ×4 (08:48→21:15)
[2023-07-12] MEDS: FLUOXETINE HCL 20 MG CAPSULE PO (08:49)
[2023-07-12] MEDS: MAGNESIUM OXIDE 400 MG TABLET PO (08:49)
[2023-07-12] MEDS: POTASSIUM CHLORIDE 10 MEQ CAPSULE ER 20 MEQ PO (08:49)
[2023-07-12] MEDS: SENNOSIDES/DOCUSATE TABLET 1 TAB PO ×2 (08:50→21:17)
--- NOTE | 2023-07-12 11:27 | PM.IMPN1 ---
Progress Note: A&P Assessment and plan (1) Altered mental status: Problem details: The cause for altered mental status is uncertain. Initial concern about serotonin syndrome. Then it was thought to be more likely to be in acute psychotic episode related to her schizoaffective disorder. She now appears to be fairly close to baseline functioning. She is not clinically appear to have serotonin syndrome today and so I have resumed her fluoxetine at a lower dose of 20 mg daily, a chronic medication that was apparently effective for her. We have been pursuing adult psychiatric inpatient placement for her without success. No beds were available in the last couple days. At this point, because she has doing much better, she may not require this. Will continue to monitor here in our hospital on her normal home medication plus aripiprazole. If her behavior and mental status remain fairly normal I think she can return to [address] [place] [address]. I have consulted psychiatric nurse practitioner for 2nd opinion Status: Acute (2) H. pylori infection: Problem details: - treatment initiated on 06/28/2023 with clarithromycin 500 b.i.d. plus amoxicillin 1000 b.i.d. plus omeprazole for 2 weeks. Initial plan was for 1 month after completing therapy to recheck H pylori stool antigen to confirm clearance of H pylori. She did not finish the full 2 week course of treatment. Currently asymptomatic for any GI symptoms. Consider repeat treatment once her mental health status has stabilized Status: Acute (3) Biliary dyskinesia: Problem details: 06/26/2023 HIDA scan shows ejection fraction 21%. No biliary obstruction. 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 Status: Chronic (6) Vomiting: Problem details: This was the primary cause of her hospitalization 3 weeks ago. Improved during that hospital stay. Cause was never entirely clear. Was treated for H pylori at discharge. Treatment was stopped. Eating normally now Status: Acute (7) Discharge planning issues: Problem details: Patient's mental health concerns appear to be better today. Will resume her normal outpatient medications for this and continue to monitor. Possible discharge back to [facility] in the next couple days Status: Acute Plan Continue in hospital for ongoing evaluation and management of mental health concerns. Possibly can be discharged back to [facility] with a outpatient mental health plan. Time Spent With Patient Total time spent: Total time spent today is 60 minutes, 50 minutes in coordination of care and discussing with patient, boyfriend, other providers ongoing evaluation management of behavioral and mental health concerns. Subjective Date Seen: 07/12/23 Interval history: 67-year-old female admitted with altered mental status including confusion and disorientation with delusions. On the day of admission she seemed to have more agitation. She was noted to have some muscle rigidity and hyper reflexia and there was concern for serotonin syndrome. Patient was hospitalized the week prior to this admission at that time she was having intractable nausea and vomiting. Extensive workup did not show any obvious cause for this. She was found to have a positive H pylori stool antigen and was started on amoxicillin and clarithromycin. At admission she had her fluoxetine and clarithromycin stopped. She was continued on her perphenazine after it was held for 3 days. She was observed to be quite confused and having some delusions as well. In reviewing her records I see that she had a psychotic episode in her 20s with at least 3 psychiatric hospitalizations. She was eventually diagnosed with schizoaffective disorder. She has been treated with perphenazine 4 mg daily and fluoxetine 40 mg daily chronically for years. It appears she has been relatively stable without psychotic episodes for many years. She was apparently getting some mental health care but reports none in the last few years. No recent hospitalizations for mental health problems. Her fluoxetine was restarted at 20 mg daily. I discontinued her benzodiazepines which were given p.r.n. I started aripiprazole 10 mg daily with a plan to wean her off perphenazine. Today she is oriented to her circumstances she is pleasant and cooperative. She reports no hallucinations. She does recall some events from earlier in her hospital stay but not much specifics. She tells me she wants to return to live with her boyfriend in [place]. She has no concerns today other than that. Last night she had episodes of some confusion and agitation. She has had repeated episodes where she takes off her gown and is naked in her room. This occurred this morning. I went to assess her and she was otherwise entirely appropriate and oriented. She tells me she took off her gown because she felt hot. She otherwise had uneventful night and reports feeling fine this morning. Exam Narrative: Exam Narrative: She is alert and appears in no distress. Her speech is normal. She is oriented to her circumstances. She exhibits no delusions or hallucinations. She is pleasant and cooperative. She is able to describe to me the events that led up to her removing her hospital gown and being naked in her room. I explained that if she is feeling hot she should tell the nurse who could turned the thermostat in the room down but that she should continue to wear a hospital gown. She agreed with this plan. Const: Vital Signs, click to edit/add: Vital Signs - 24 hr 07/11/23 11:45 07/11/23 15:00 07/11/23 15:46 Temperature 98 F 97.8 F Pulse Rate [Pulse Oximeter] 94 80 Respiratory Rate 16 16 Blood Pressure [Ri ght Arm] 116/91 H 130/103 H Pulse Oximetry 94 96 95 Oxygen Delivery Me thod Room Air Room Air Room Air 07/11/23 19:00 07/11/23 22:17 07/11/23 22:29 Temperature 98.0 F 98.0 F Pulse Rate [Pulse Oximeter] 95 100 Respiratory Rate 20 16 Blood Pressure [Ri ght Arm] 121/79 118/73 Pulse Oximetry 69 L 95 93 Oxygen Delivery Me thod Room Air Room Air Room Air 07/12/23 02:52 07/12/23 07:00 07/12/23 07:00 Temperature 98.3 F Pulse Rate [Pulse Oximeter] 69 77 Respiratory Rate 16 16 16 Blood Pressure [Ri ght Arm] 111/68 Pulse Oximetry 93 95 Oxygen Delivery Me thod Room Air Room Air 07/12/23 07:00 Temperature 97.9 F Pulse Rate [Pulse Oximeter] 77 Respiratory Rate 16 Blood Pressure [Ri ght Arm] 116/77 Pulse Oximetry 95 Oxygen Delivery Me thod Room Air Documenting provider has reviewed patient's vital signs: yes Labs Labs: Laboratory Results - last 24 hr 07/12/23 05:35 INR 2.20 H
--- NOTE | 2023-07-12 14:53 | PC.SOCIAL ---
Discharge planning: workers compensation adjuster informed [facility] that pt was staying in the hospital today, as her medications are still being monitored by the doctors. Social work to follow-up as needed.
--- NOTE | 2023-07-12 15:10 | REH.PT ---
At request of MD Hernández evaluated pt's ability to complete stairs. Pt able to t/f sit<>stand from EOB, toilet and recliner ind. Amb to/from therapy gym with 4ww and supervision. Pt able to ascend and descend 4 stairs X 2 with with hand rail support and supervision. Pt required no physical assist with transfers, gait and stair amb.
[2023-07-12] MEDS: WARFARIN 2 MG TABLET 4 MG PO (17:53)
--- NOTE | 2023-07-12 19:08 | PC.NURSE ---
End of shift: patient is alert to self, place, and month only upon assessment this AM/PM/. Patient uses call light appropriately. Up in the chair throughout the day. Up SBA w/ GB and RW to the BR. The patient is continent/ incontinent of urine. Patient c/c/o chronic low back pain and hip intermittently throughout the day. tylenol PRN q6 administered with relief. No IV present. Patient undressed herself this AM and stated she was cold so she took off her gown and socks. notified.
[2023-07-12] MEDS: MELATONIN 3 MG TABLET PO (21:16)
[2023-07-12] MEDS: guaiFENesin 100 MG/ML CUP 400 MG PO (21:16)
[2023-07-12] MEDS: FAMOTIDINE 20 MG TABLET PO (21:16)
[2023-07-12] MEDS: MONTELUKAST 10 MG TABLET PO (21:17)
[2023-07-12] MEDS: ROPINIROLE HCL 1 MG TABLET PO (21:17)
[2023-07-13 03:00] VITALS: RESP 18
[2023-07-13] MEDS: OMEPRAZOLE 20 MG CAPSULE DR 40 MG PO (06:10)
[2023-07-13] MEDS: ACETAMINOPHEN 500 MG TABLET 1000 MG PO (06:13)
--- NOTE | 2023-07-13 06:30 | PC.NURSE ---
Shift note [id number]: Pt noted to have thrown some of her belongings in the trash can near bed including IS and lift sheet stating, ?I just want to be free?. She was also noted to be?talking about having to see an oncology doctor overnight and talking about how she will need to attend radiation appointment. Staff have provided reorientation. She is transferring/ambulating with SBA using 4WW. VSS and pt has been afebrile. Pt has been continent of bladder and uses bathroom for toileting. Pt needs encouragement to participate in cares and is noted to have frequent call light use. Pt requested PRN Tylenol for moderate headache pain. She has been noted to have independently removed DEMARIO stockings once this shift and also requested staff remove them another time despite education of importance of these. Another RN reported that pt referred to storage compartment in 4WW as her ?new purse? with plans to place items in there.
[2023-07-13 06:45] LABS: INR 2.03 (0.91-1.10); Prothrombin Time 24.5 Seconds
[2023-07-13 08:30] VITALS: BP 108/67; PULSE 73; RESP 16; TEMP 36.9; O2SAT 97
[2023-07-13] MEDS: POTASSIUM CHLORIDE 10 MEQ CAPSULE ER 20 MEQ PO (09:35)
[2023-07-13] MEDS: ARIPiprazole 10 MG TABLET PO (09:35)
[2023-07-13] MEDS: MAGNESIUM OXIDE 400 MG TABLET PO (09:36)
[2023-07-13] MEDS: SENNOSIDES/DOCUSATE TABLET 1 TAB PO (09:36)
[2023-07-13] MEDS: FLUOXETINE HCL 20 MG CAPSULE PO (09:37)
[2023-07-13] MEDS: ALBUTEROL INHALER 2 PUFF IH (09:37)
[2023-07-13] MEDS: BUDESONIDE 0.25 MG/2 ML AMPUL.NEB NEB (09:37)
[2023-07-13] MEDS: guaiFENesin 100 MG/ML CUP 400 MG PO (09:42)
[2023-07-13 11:06] VITALS: BP 126/73; PULSE 85; RESP 16; TEMP 37.2; O2SAT 95
--- NOTE | 2023-07-13 11:58 | PC.SOCIAL ---
Discharge planning: Pt is medically ready to discharge back to [facility] today. [facility] stated they could take pt back today by 2pm. Charge nurse will set-up non-emergency EMS transport. torpedo worker spoke with pt's significant other, Festus, who agreed to private pay for the non-emergent EMS transportation back to [facility] via phone. torpedo worker documented this on the needed form. torpedo worker also provided pt with The Important Message from Medicare form. A PAS does not need to be completed since the pt was on a bed hold at [facility]. Social work to follow-up as needed.
--- NOTE | 2023-07-13 12:08 | PM.DS1 ---
DS: Providers Provider Date Seen: 07/13/23 Date of admission: 07/04/23 09:14 Primary care physician: Reese Heredia MD Admitting Clinician: Brent Madison MD Attending Physician on discharge: Nickolas Hernández MD Date of Discharge: 07/13/23 DS: Diagnosis Discharge Diagnosis (1) Altered mental status: Status: Acute Problem details: The cause for altered mental status is uncertain. Initial concern about serotonin syndrome. Then it was thought to be more likely to be in acute psychotic episode related to her schizoaffective disorder. She now appears to be fairly close to baseline functioning. Cognitive testing showed both a slums score of 14/30 and a [place] score of 14/30. She is not clinically appear to have serotonin syndrome today and so I have resumed her fluoxetine at a lower dose of 20 mg daily, a chronic medication that was apparently effective for her. She had clinical improvement during her hospital stay though still showed episodes where she seemed confused but not psychotic. She needed a lot of direction to do her ADLs suggestive of a cognitive problem more than a mental health problem such as psychosis. At the time of admission there was more concern about psychosis which has resolved over the last several days. (2) Schizoaffective disorder: Status: Acute Problem details: I have decided to transition from perphenazine to Abilify for her antipsychotic treatment and continue Prozac at a reduced dose of 20 mg daily pending mental health consultation. Recommend outpatient psychiatric follow-up to reassess medication management (3) Serotonin syndrome: Status: Acute Problem details: No obvious trigger to cause serotonin syndrome with no significant new serotonergic acting drugs. Tremulousness, confusion and agitation likely due to other causes primarily. Fluoxetine dose reduced to 20 mg daily No clinical evidence for serotonin syndrome in the last 4 days (4) Multiple subsegmental pulmonary emboli without acute cor pulmonale: Status: Chronic Problem details: - h/o PE - Continue warfarin to maintain therapeutic INR. (5) Vomiting: Status: Acute Problem details: This was the primary cause of her hospitalization 3 weeks ago. Improved during that hospital stay. Cause was never entirely clear. Was treated for H pylori at discharge. Treatment was stopped. Eating normally now. (6) Acute hypokalemia: Status: Resolved Problem details: replaced po dose x 1 increased am dosing to 20meq normal on 07/05 (7) H. pylori infection: Status: Acute Problem details: - treatment initiated on 06/28/2023 with clarithromycin 500 b.i.d. plus amoxicillin 1000 b.i.d. plus omeprazole for 2 weeks. Initial plan was for testing with H pylori stool antigen 1 month after completing therapy. She did not finish the full 2 week course of treatment. Consider repeat treatment with antibiotics once her psychiatric problems have improved or consider testing for H pylori stool antigen in 1 month to see if her abbreviated course of treatment was affective. Currently asymptomatic for any GI symptoms. (8) Biliary dyskinesia: Status: Acute Problem details: 06/26/2023 HIDA scan shows ejection fraction 21%. No biliary obstruction. No further evaluation or treatment unless having significant ongoing postprandial symptoms (9) Discharge planning issues: Status: Acute Problem details: Daily conversations with patient, her boyfriend, Festus, and multiple other care providers about disposition plan. At this point patient does not appear to be having significant psychiatric decompensation. She has continued to have some confusion and is reflecting moderate dementia with her [place] score of 14/30. She is needing quite a bit of care for her ADLs. Festus does not think that he can manage this at home at this time. She will be discharged back to [address] [place] [address] for ongoing management of her dementia, schizoaffective disorder, functional impairments with her having a long-term goal of returning home with Festus. DS: Summary Hospital Course Hospital Course: 67-year-old female admitted with altered mental status including confusion and disorientation with delusions. On the day of admission she seemed to have more agitation. She was noted to have some muscle rigidity and hyper reflexia and there was concern for serotonin syndrome. Patient was hospitalized the week prior to this admission at that time she was having intractable nausea and vomiting. Extensive workup did not show any obvious cause for this. She was found to have a positive H pylori stool antigen and was started on amoxicillin and clarithromycin. At admission she had her fluoxetine and clarithromycin stopped. She was continued on her perphenazine after it was held for 3 days. She was observed to be quite confused and having some delusions as well. In reviewing her records I see that she had a psychotic episode in her 20s with at least 3 psychiatric hospitalizations. She was eventually diagnosed with schizoaffective disorder. She has been treated with perphenazine 4 mg daily and fluoxetine 40 mg daily chronically for years. It appears she has been relatively stable without psychotic episodes for many years. She was apparently getting some mental health care but reports none in the last few years. No recent hospitalizations for mental health problems. Her fluoxetine was restarted at 20 mg daily. I discontinued her benzodiazepines which were given p.r.n. I started aripiprazole 10 mg daily with a plan to wean her off perphenazine. Today she is oriented to her circumstances she is pleasant and cooperative. She reports no hallucinations. She does recall some events from earlier in her hospital stay but not much specifics. She tells me she wants to return to live with her boyfriend in [place]. She has no concerns today other than that. She had cognitive testing with a [place] of 14. It was felt like this moderate cognitive impairment was likely contributing to much of the confusion and was being seen. It is less clear if it was contributing to her agitation at the time of admission. Possibly this was an episode of sundowning or possibly there were some issues with her other medications. In any case evidence of delirium or psychosis have not been present for the last few days but she still had some confusion. She was evaluated by physical therapy and occupational therapy and was felt that she needed significant direction and guidance with ADLs. On that basis it was felt this would be more than her boyfriend bill would be able to take care of if she went home so she was sent back to [address] [place] [address]. Status at Discharge Functional status at discharge: uses cane/walker Overall status at discharge: patient is progressing back to baseline Time Spent with Patient Time attestation: Total time spent providing and/or coordinating discharge services: Total time spent today is 60 minutes in coordination of care on the day of discharge Time spent: Greater than 30 minutes Exam Narrative: Exam Narrative: She is alert pleasant and appears in no distress. Mood and affect are appropriate and congruent. Speech is normal. She is oriented to her circumstances. No tremulousness. She is eating a normal diet. Const: Vital Signs, click to edit/add: Vital Signs - 24 hr 07/12/23 15:00 07/12/23 15:00 07/12/23 15:00 Temperature 98.2 F Pulse Rate [Pulse Oximeter] 80 80 Respiratory Rate 16 16 16 Blood Pressure [Ri ght Arm] 111/74 Pulse Oximetry 96 96 Oxygen Delivery Me thod Room Air Room Air 07/12/23 19:00 07/12/23 23:00 07/12/23 23:27 Temperature 98.1 F Pulse Rate [Pulse Oximeter] 74 Respiratory Rate 16 16 16 Blood Pressure [Ri ght Arm] 109/90 H Pulse Oximetry 93 95 Oxygen Delivery Me thod Room Air Room Air 07/12/23 23:27 07/13/23 03:00 07/13/23 08:30 Temperature 97.4 F L 98.5 F Pulse Rate [Pulse Oximeter] 73 73 Respiratory Rate 16 18 16 Blood Pressure [Ri ght Arm] 105/66 108/67 Pulse Oximetry 95 97 Oxygen Delivery Nc thod Room Air Room Air 07/13/23 08:30 07/13/23 08:30 07/13/23 11:06 Temperature 99 F Pulse Rate [Pulse Oximeter] 73 85 Respiratory Rate 16 16 16 Blood Pressure [Ri ght Arm] 126/73 Pulse Oximetry 97 95 Oxygen Delivery Me thod Room Air Room Air Documenting provider has reviewed patient's vital signs: yes DS: Data Data Completed and Pending Labs on day of discharge: Labs from last 24 hours 07/13/23 07/13/23 11:18 05:38 INR 2.03 H SARS-CoV-2 (PCR) Pending Discharge Plan Discharge Disposition: [facility] Date of Admission: 07/04/23 09:14 Attending Provider on Discharge: Monster Hernández Primary Care Provider: Reese Heredia Anticipated Discharge Date/Time: 07/13/23 10:54 Discharge Medications: New aripiprazole 10 mg Tablet 10 mg PO DAILY Qty: 30 0RF Continued ropinirole 0.5 mg tablet 1 mg PO QHS fluticasone propion-salmeterol [Advair Diskus] 500-50 mcg/dose blister with device 1 inh INHALATION BID montelukast 10 mg tablet 10 mg PO HS albuterol sulfate 90 mcg/actuation HFA aerosol inhaler 2 puff INHALATION Q4H PRN (Reason: dyspnea) acetaminophen [Acetaminophen Extra Strength] 500 mg tablet 1,000 mg PO Q6H PRN calcium carbonate-vitamin D3 [Calcium 600 + D(3)] 600 mg-10 mcg (400 unit) tablet 1 tab PO DAILY cholecalciferol (vitamin D3) 50 mcg (2,000 unit) capsule 50 mcg PO DAILY ipratropium-albuterol 0.5 mg-3 mg(2.5 mg base)/3 mL solution for nebulization 3 ml inhalation Q6H PRN magnesium oxide 400 mg magnesium capsule 400 mg PO DAILY melatonin 3 mg capsule 3 mg PO HS PRN Systane (PF) 0.4-0.3 % dropperette 1 drp ophthalmic (eye) Q1H PRN ondansetron 4 mg tablet,disintegrating 4 mg PO Q6H PRN guaifenesin [Chest Congestion Relief] 400 mg tablet 400 mg PO BID polyethylene glycol 3350 [Miralax] 17 gram/dose powder 17 g PO DAILY PRN omeprazole 20 mg capsule,delayed release(DR/EC) 40 mg PO DAILY Qty: 60 0RF potassium chloride 10 mEq capsule, extended release 10 meq PO DAILY Qty: 30 0RF warfarin 5 mg tablet 5 mg PO DAILY Changed fluoxetine 40 mg capsule 20 mg PO HS Qty: 30 0RF Discontinued perphenazine 4 mg tablet 4 mg PO HS amoxicillin 500 mg capsule 1,000 mg PO BID Qty: 56 0RF clarithromycin 500 mg tablet 500 mg PO BID Qty: 28 0RF Discharge Orders: Discharge Order (Routine); Ordered 07/13/23 Ordered By: Monster Hernández Activity Level: No Restrictions, Up with assist and Use Walker Discharge Diet: Regular Follow Up Appointments: Reese Heredia MD [Primary Care Provider] - Forms: [facility] Info Instructions Admit to: SNF Discharge Potential: Fair Code Status: Full Code Rehab Potential: Fair Therapy: Physical Therapy and Occupational Therapy Therapy Orders: Evaluate and Treat Oxygen: No Next INR: 4 days INR Goal: 2-3
[2023-07-13 12:11] LABS: SARS PCR* Negative SARS-CoV-2 (Negative)
[2023-07-13] MEDS: MAG HYDROX/ALUMINUM HYD/SIMETH 30 ML ORAL.SUSP 15 ML PO (12:53)
--- NOTE | 2023-07-13 13:03 | PC.NURSE ---
Discharge: Patient pleasant and cooperative. Patient vitally stable, lungs clear, BS WNL, NO IV. Patient SBA with walker. Patient rates full body pain 9/10, but does not appear in this much pain. Patient tolerating regular diet. Patient urinating and had 1 large BM. Patient is continent and incontinent at times. Patient is on her call light often. Patient signed discharge form. Patient left the floor to 3 [facility] by stretcher at 1300. Nurse to Nurse report given to Jo at [facility].
== END 2023-07-13 13:00 | DRG 885 ==
LOC: ED 16:08 → MEDSURG 19:07
PROVIDERS: Family Medicine; Admitting Provider Internal Medicine; Emergency Provider Emergency Medicine; PCP Family Medicine; Visit Provider Internal Medicine
DX: F23 Brief psychotic disorder (principal); I26.94 Multiple subsegmental thrombotic pulmonary emboli without acute cor pulmonale; F03.B11 Unspecified dementia, moderate, with agitation; F05 Delirium due to known physiological condition; F25.9 Schizoaffective disorder, unspecified; T36.3X5A Adverse effect of macrolides, initial encounter; F32.9 Major depressive disorder, single episode, unspecified; R41.82 Altered mental status, unspecified; T43.225A Adverse effect of selective serotonin reuptake inhibitors, initial encounter; T45.0X5A Adverse effect of antiallergic and antiemetic drugs, initial encounter; B96.81 Helicobacter pylori [H. pylori] as the cause of diseases classified elsewhere; E87.6 Hypokalemia; Z79.01 Long term (current) use of anticoagulants; G25.81 Restless legs syndrome; J44.9 Chronic obstructive pulmonary disease, unspecified; G47.33 Obstructive sleep apnea (adult) (pediatric); J45.30 Mild persistent asthma, uncomplicated; Z85.3 Personal history of malignant neoplasm of breast; K82.8 Other specified diseases of gallbladder; R11.2 Nausea with vomiting, unspecified
CPT/HCPCS: 36415; 70450; 80048; 80053; 80061; 80076; 80306; 81001; 82077; 82140; 82803; 83605; 83690; 83735; 84443; 84484; 85025; 85027; 85610; 86140; 87086; 87338; 87631; 87635; 93005; 94640; 94664; 97161; 97166; 97530; 97535; 99284; 99285; A9270; G0378; J2060; J7626

== ENCOUNTER 2023-07-13 13:04 | Outpatient (CLI) | payer MEDICARE, SELFPAY | END 2023-07-13 13:05 | disposition home or self-care (01) | PROVIDERS: PCP Family Medicine; Visit Provider Emergency Medicine Emergency Medical Services | DX: R41.82 Altered mental status, unspecified (principal); F25.9 Schizoaffective disorder, unspecified | CPT/HCPCS: A0425; A0428 ==